=== PATIENT | female | born 1955 | race Hispanic/Latino ===

== ENCOUNTER 2019-03-16 14:47 | Emergency (ER) | payer OTHER ==
[2019-03-16] MEDS ORDERED: predniSONE 20 MG TAB ONE (15:24)
[2019-03-16] MEDS ORDERED: ALBUTEROL 2.5 MG/3 ML NEB SOL ONE ×2 (15:24→16:09)
[2019-03-16 15:30] LABS: Absolute Lymphocytes (CBC) 1.7 K/uL (0.7-4.9); Absolute Monocytes 0.4 K/uL (0.1-1.3); Absolute Neutrophil 2.7 K/uL (1.8-8.0); Basophils % 0.9 % (0-1.3); Eosinophils % 3.3 % (0-4.4); Hematocrit 39.2 % (36.0-45.0); Lymphocytes % 33.8 % (15.3-44.8); MPV 8.6 fL (7.6-11.3); Monocytes % 7.5 % (3.3-12.3); RBC Red Blood Cell Count 4.38 M/uL (3.86-4.86)
[2019-03-16 15:35] LABS: Protime INR 0.86
--- NOTE | 2019-03-16 15:51 | RAD REPORT ---
EXAM DESCRIPTION: RAD - Chest Single View - 03/16/2019 3:43 pm CLINICAL HISTORY: Chest tightness, shortness of breath COMPARISON: January 2017 TECHNIQUE: AP portable chest image was obtained 1521 hours . FINDINGS: Lungs are slightly underinflated accentuating baseline interstitial pattern. No acute lung parenchymal process. No failure or volume overload. Heart and vasculature are normal. No measurable pleural effusion and no pneumothorax. No acute bony abnormality seen. No acute aortic findings suspec mamta. IMPRESSION: No acute cardiopulmonary process. No significant change from comparison.
[2019-03-16 16:34] LABS: ALT/SGPT 45 U/L (12-78); AST/SGOT 31 U/L (15-37); Alkaline Phosphatase 91 U/L (45-117); BUN Blood Urea Nitrogen 22 mg/dL (7-18); Bicarbonate 28 mmol/L (21-32); Bilirubin Direct < 0.1 mg/dL (0-0.2); Bilirubin Total 0.4 mg/dL (0.2-1.0); Glucose Level 113 mg/dL (74-106); Magnesium 2.4 mg/dL (1.8-2.4); NT PRO-BNP 8 pg/mL (<125); Protein, Total 7.3 g/dL (6.4-8.2); Sodium Level 142 mmol/L (136-145); Troponin (Emerg Dept Use Only) < 0.02 ng/mL (0.0-0.045)
--- NOTE | 2019-03-16 16:39 | ER ---
Nurse's Notes [facility] Name: Diane Kitchen Age: 63 yrs Sex: Female : 1955 Arrival Date: 03/16/2019 Time: 14:50 Bed 30 Private MD: Diagnosis: Unspecified asthma with (acute) exacerbation Presentation: 03/16 14:54 Presenting complaint: SOB, chest tightness, and nonproductive cough x 2 days. Denies hb fever. Transition of care: patient was not received from another setting of care. Onset of symptoms was March 15, 2019. 14:54 Method Of Arrival: Ambulatory 14:55 Risk Assessment: Do you want to hurt yourself or someone else? Patient reports no hb desire to harm self or others. Care prior to arrival: None. 14:55 Acuity: JYOTI 3 hb 15:27 Initial Sepsis Screen: Does the patient meet any 2 criteria? No. Patient's initial mg2 sepsis screen is negative. Does the patient have a suspected source of infection? No. Patient's initial sepsis screen is negative. Triage Assessment: 15:28 General: Appears in no apparent distress. comfortable, Behavior is calm, cooperative. mg2 Respiratory: the patient has mild shortness of breath. Historical: - Allergies: 14:56 No Known Allergies; hb - Home Meds: 14:56 aspirin 81 mg Oral TbEC [Active]; Celexa 20 mg Oral tab [Active]; pravastatin 40 mg hb Oral tab [Active]; Singulair 10 mg Oral tab [Active]; - PMHx: 14:56 Diverticulitis; Hypertension; Myocardial infarction; hb - PSHx: 14:56 Tubal ligation; partial hysterectomy; hb - Immunization history:: Adult Immunizations up to date. - Social history:: Smoking status: Patient/guardian denies using tobacco. - Ebola Screening: : No symptoms or risks identified at this time. Screenin:27 Abuse screen: Denies threats or abuse. Denies injuries from another. Nutritional mg2 screening: No deficits noted. Tuberculosis screening: No symptoms or risk factors identified. Fall Risk IV access (20 points). Assessment: 15:24 General: Appears in no apparent distress. comfortable, Behavior is calm, cooperative. mg2 Pain: Complains of pain in chest Pain does not radiate. Pain currently is 2 out of 10 on a pain scale. Quality of pain is described as tightness Pain began gradually, Is intermittent. Neuro: Level of Consciousness is awake, alert, obeys commands, Oriented to person, place, time, situation. Cardiovascular: Capillary refill < 3 seconds Patient's skin is warm and dry. Respiratory: Airway is patent Respiratory effort is even, unlabored, Breath sounds are clear bilaterally. in right upper lobe, left upper lobe, right middle lobe, left lower lobe and right lower lobe. 15:26 GI: No signs and/or symptoms were reported involving the gastrointestinal system. : mg2 No signs and/or symptoms were reported regarding the genitourinary system. EENT: Reports pain in throat. Derm: Skin is intact, is healthy with good turgor, Skin is pink, warm \T\ dry. normal. Musculoskeletal: Circulation, motion, and sensation intact. Capillary refill < 3 seconds. 16:46 Cardiovascular: Rhythm is sinus rhythm. mg2 16:46 Reassessment: Patient appears in no apparent distress at this time. Patient states mg2 feeling better. Patient states symptoms have improved. Vital Signs: 14:55 BP 143 / 77; Pulse 91; Resp 16; Temp 98.; Pulse Ox 96% on R/A; Pain 5/10; hb 16:40 BP 132 / 59; Pulse 78; Resp 18; Pulse Ox 100% on R/A; Pain 0/10; mg2 ED Course: 14:50 Patient arrived in ED. mr 14:56 Triage completed. hb 14:56 Arm band placed on. hb 14:57 Daniel Sommers NP is PHCP. pm1 14:57 Bennett Torres MD is Attending Physician. pm1 15:24 Danny Robert, JEFF is Primary Nurse. mg2 15:27 No provider procedures requiring assistance completed. Inserted saline lock: 20 gauge mg2 in right antecubital area, using aseptic technique. Blood collected. 15:28 Patient has correct armband on for positive identification. Pulse ox on. NIBP on. Door mg2 closed. Warm blanket given. 15:43 XRAY Chest (1 view) In Process Unspecified. EDMS 15:49 EKG done, by solar installation technician. reviewed by Daniel Sommers NP. at1 16:46 IV discontinued, intact, bleeding controlled, No redness/swelling at site. Pressure mg2 dressing applied. Administered Medications: 15:19 Drug: Albuterol 2.5 mg Route: Inhalation; mg2 15:58 Follow up: Response: No adverse reaction; Marked relief of symptoms mg2 15:20 Drug: predniSONE 60 mg Route: PO; mg2 15:59 Follow up: Response: No adverse reaction; Marked relief of symptoms mg2 15:58 Drug: Albuterol 2.5 mg Route: Inhalation; mg2 16:40 Follow up: Response: No adverse reaction; Marked relief of symptoms mg2 Outcome: 16:38 Discharge ordered by MD. pm1 16:47 Discharged to home ambulatory, with family. mg2 16:47 Condition: good 16:47 Discharge instructions given to patient, family, Instructed on discharge instructions, follow up and referral plans. medication usage, Demonstrated understanding of instructions, follow-up care, medications, Prescriptions given X 2. 16:48 Patient left the ED. mg2 Signatures: Dispatcher [employer] OLIVIA NirmalMarguerite mr NielsenMissy, senior counsel EKG Tat1 Daniel Sommers, FCO CARGO SERVICE SUPERVISOR pm1 Jennifer George RN RN Danny Robert RN RN mg2
--- NOTE | 2019-03-16 16:39 | EDPHYS ---
Physician Documentation [facility] Name: Diane Kitchen Age: 63 yrs Sex: Female : 1955 Arrival Date: 03/16/2019 Time: 14:50 Bed 30 Private MD: Bennett Shah HPI: 03/16 15:15 This 63 yrs old Female presents to ER via Ambulatory with complaints of pm1 Breathing Difficulty, Asthma Exacerbation. 15:15 The patient has shortness of breath at rest. Onset: The symptoms/episode began/occurred pm1 2 day(s) ago. Duration: The symptoms are continuous. The patient's shortness of breath is aggravated by coughing, is alleviated by nothing, Patient does not have inhaler or nebulizer for her asthma. Associated signs and symptoms: Pertinent positives: chest pain, non-productive cough, Pertinent negatives: fever, nausea, vomiting. Severity of symptoms: Pain is currently a 0 / 10. The patient has experienced a previous episode, and the symptoms today are exactly the same, Last year. Historical: - Allergies: 14:56 No Known Allergies; hb - Home Meds: 14:56 aspirin 81 mg Oral TbEC [Active]; Celexa 20 mg Oral tab [Active]; pravastatin 40 mg hb Oral tab [Active]; Singulair 10 mg Oral tab [Active]; - PMHx: 14:56 Diverticulitis; Hypertension; Myocardial infarction; hb - PSHx: 14:56 Tubal ligation; partial hysterectomy; hb - Immunization history:: Adult Immunizations up to date. - Social history:: Smoking status: Patient/guardian denies using tobacco. - Ebola Screening: : No symptoms or risks identified at this time. ROS: 15:15 Constitutional: Negative for fever, chills, and weight loss, Eyes: Negative for injury, pm1 pain, redness, and discharge, ENT: Negative for injury, pain, and discharge, Neck: Negative for injury, pain, and swelling. 15:15 Abdomen/GI: Negative for abdominal pain, nausea, vomiting, diarrhea, and constipation, Back: Negative for injury and pain, : Negative for injury, bleeding, discharge, and swelling, MS/Extremity: Negative for injury and deformity, Skin: Negative for injury, rash, and discoloration, Neuro: Negative for headache, weakness, numbness, tingling, and seizure. 15:15 Cardiovascular: Positive for chest pain, with cough, edema, orthopnea, palpitations. 15:15 Respiratory: Positive for cough, with no reported sputum, shortness of breath, wheezing. Exam: 15:15 Constitutional: This is a well developed, well nourished patient who is awake, alert, pm1 and in no acute distress. Head/Face: Normocephalic, atraumatic. Eyes: Pupils equal round and reactive to light, extra-ocular motions intact. Lids and lashes normal. Conjunctiva and sclera are non-icteric and not injected. Cornea within normal limits. Periorbital areas with no swelling, redness, or edema. ENT: Nares patent. No nasal discharge, no septal abnormalities noted. Tympanic membranes are normal and external auditory canals are clear. Oropharynx with no redness, swelling, or masses, exudates, or evidence of obstruction, uvula midline. Mucous membranes moist. Neck: Trachea midline, no thyromegaly or masses palpated, and no cervical lymphadenopathy. Supple, full range of motion without nuchal rigidity, or vertebral point tenderness. No Meningismus. Chest/axilla: Normal chest wall appearance and motion. Nontender with no deformity. No lesions are appreciated. Cardiovascular: Regular rate and rhythm with a normal S1 and S2. No gallops, murmurs, or rubs. Normal PMI, no JVD. No pulse deficits. 15:15 Abdomen/GI: Soft, non-tender, with normal bowel sounds. No distension or tympany. No guarding or rebound. No evidence of tenderness throughout. Back: No spinal tenderness. No costovertebral tenderness. Full range of motion. Skin: Warm, dry with normal turgor. Normal color with no rashes, no lesions, and no evidence of cellulitis. MS/ Extremity: Pulses equal, no cyanosis. Neurovascular intact. Full, normal range of motion. 15:15 Respiratory: the patient does not display signs of respiratory distress, Respirations: normal, Breath sounds: decreased breath sounds, are scattered. 15:15 Neuro: Orientation: is normal, Motor: is normal, moves all fours. 15:50 NSR Normal ECG 90 BPM pm1 Vital Signs: 14:55 BP 143 / 77; Pulse 91; Resp 16; Temp 98.; Pulse Ox 96% on R/A; Pain 5/10; hb 16:40 BP 132 / 59; Pulse 78; Resp 18; Pulse Ox 100% on R/A; Pain 0/10; mg2 MDM: 14:57 Patient medically screened. pm1 16:37 Data reviewed: vital signs. Data interpreted: Pulse oximetry: on room air is 96 %. pm1 Interpretation: normal. Counseling: I had a detailed discussion with the patient and/or guardian regarding: the historical points, exam findings, and any diagnostic results supporting the discharge/admit diagnosis, lab results, radiology results, the need for outpatient follow up, to return to the emergency department if symptoms worsen or persist or if there are any questions or concerns that arise at home. 03/16 15:09 Order name: Basic Metabolic Panel; Complete Time: 16:34 pm03/16 15:09 Order name: CBC with Diff; Complete Time: 15:44 pm03/16 15:09 Order name: LFT's; Complete Time: 16:34 pm03/16 15:09 Order name: Magnesium; Complete Time: 16:34 pm03/16 15:09 Order name: NT PRO-BNP; Complete Time: 16:34 pm03/16 15:09 Order name: PT-INR; Complete Time: 16:17 pm03/16 15:09 Order name: Troponin (emerg Dept Use Only); Complete Time: 16:34 pm03/16 15:09 Order name: XRAY Chest (1 view); Complete Time: 15:55 pm03/16 15:09 Order name: Flu; Complete Time: 16:01 pm03/16 15:09 Order name: Strep; Complete Time: 15:59 pm03/16 16:01 Order name: Throat Culture EDWY 03/16 15:09 Order name: EKG; Complete Time: 15:09 pm03/16 15:09 Order name: Cardiac monitoring; Complete Time: 15:20 pm03/16 15:09 Order name: EKG - Nurse/Tech; Complete Time: 15:39 pm03/16 15:09 Order name: IV Saline Lock; Complete Time: 15:20 pm03/16 15:09 Order name: Labs collected and sent; Complete Time: 15:20 pm03/16 15:09 Order name: O2 Per Protocol; Complete Time: 15:20 pm1 03/16 15:09 Order name: O2 Sat Monitoring; Complete Time: 15:20 pm1 Administered Medications: 15:19 Drug: Albuterol 2.5 mg Route: Inhalation; mg2 15:58 Follow up: Response: No adverse reaction; Marked relief of symptoms mg2 15:20 Drug: predniSONE 60 mg Route: PO; mg2 15:59 Follow up: Response: No adverse reaction; Marked relief of symptoms mg2 15:58 Drug: Albuterol 2.5 mg Route: Inhalation; mg2 16:40 Follow up: Response: No adverse reaction; Marked relief of symptoms mg2 Disposition: 03/16/19 16:38 Discharged to Home. Impression: Unspecified asthma with (acute) exacerbation. - Condition is Stable. - Discharge Instructions: Asthma, Adult, How to Use an Inhaler. - Prescriptions for Medrol (Rito) 4 mg Oral Tablets, Dose Pack - take 1 tablet by ORAL route as directed - follow package instructions; 1 packet. Albuterol Sulfate 90 mcg/actuation - inhale 1-2 puff by INHALATION route every 4-6 hours; 1 Inhaler. - Medication Reconciliation Form, Thank You Letter, Antibiotic Education, Prescription Opioid Use form. - Follow up: Emergency Department; When: As needed; Reason: Worsening of condition. Follow up: Private Physician; When: 2 - 3 days; Reason: Recheck today's complaints, Continuance of care, Re-evaluation by your physician. - Problem is new. - Symptoms have improved. Signatures: Dispatcher [employer] EDWY Daniel Sommers NP FLOOR TRADER pm1 Jennifer George RN RN Danny Robert RN RN mg2 Corrections: (The following items were deleted from the chart) 16:48 16:38 03/16/2019 16:38 Discharged to Home. Impression: Unspecified asthma with (acute) mg2 exacerbation. Condition is Stable. Forms are Medication Reconciliation Form, Thank You Letter, Antibiotic Education, Prescription Opioid Use. Follow up: Emergency Department; When: As needed; Reason: Worsening of condition. Follow up: Private Physician; When: 2 - 3 days; Reason: Recheck today's complaints, Continuance of care, Re-evaluation by your physician. Problem is new. Symptoms have improved. pm1
[2019-03-16 17:09] VITALS: TEMP 98
[2019-03-16 17:10] VITALS: BP 132/59; O2SAT 100
--- NOTE | 2019-03-17 08:39 | EKG ---
Test Date: 2019-03-16 Test Time: 15:35:19 Direct Support Specialist: RITU MEASUREMENT RESULTS: Intervals: Rate: 90 FL: 124 QRSD: 80 QT: 382 QTc: 467 [place]: P: 52 FL: 124 QRS: 18 T: 48 INTERPRETIVE STATEMENTS: Normal sinus rhythm Normal ECG Compared to ECG 10/05/2017 07:31:23 No significant changes Electronically Signed On 03-17-19 08:36:58 CDT by James Ortiz
== END 2019-03-16 16:48 | disposition home or self-care (01) ==
LOC: ER 14:47
DX: J45.901 Unspecified asthma with (acute) exacerbation (principal)
CPT/HCPCS: 36415; 71045; 80048; 80076; 83735; 83880; 84484; 85025; 85610; 87070; 87081; 87804; 93005; 99285; J7512

== ENCOUNTER 2019-11-20 12:39 | Observation (INO) | payer OTHER ==
[2019-11-20] MEDS ORDERED: ASPIRIN 81 MG CHEWABLE TABLET ONE (13:10)
[2019-11-20 13:23] LABS: Absolute Lymphocytes (CBC) 2.1 K/uL (0.7-4.9); Basophils % 0.9 % (0-1.3); Lymphocytes % 43.3 % (15.3-44.8); MPV 8.1 fL (7.6-11.3); RBC Red Blood Cell Count 4.69 M/uL (3.86-4.86)
[2019-11-20 13:24] LABS: Protime INR 0.91
--- NOTE | 2019-11-20 13:29 | RAD REPORT ---
EXAM DESCRIPTION: Raymundo Single View11/20/2019 1:18 pm CLINICAL HISTORY: Chest pain COMPARISON: February 2019 FINDINGS: The lungs appear clear of acute infiltrate. The heart is normal size IMPRESSION: No acute abnormalities displayed
[2019-11-20 13:41] LABS: ALT/SGPT 43 U/L (12-78); AST/SGOT 21 U/L (15-37); Albumin 3.8 g/dL (3.4-5.0); Alkaline Phosphatase 83 U/L (45-117); BUN Blood Urea Nitrogen 12 mg/dL (7-18); Bicarbonate 28 mmol/L (21-32); Bilirubin Direct < 0.1 mg/dL (0-0.2); Bilirubin Total 0.4 mg/dL (0.2-1.0); Glucose Level 93 mg/dL (74-106); Lipase 240 U/L (73-393); Magnesium 2.3 mg/dL (1.8-2.4); NT PRO-BNP 11 pg/mL (<125); Potassium 3.9 mmol/L (3.5-5.1); Protein, Total 7.1 g/dL (6.4-8.2); Sodium Level 140 mmol/L (136-145); Troponin (Emerg Dept Use Only) < 0.02 ng/mL (0.0-0.045)
--- NOTE | 2019-11-20 13:53 | EDPHYS ---
Physician Documentation [facility] Name: Diane Kitchen Age: 63 yrs Sex: Female : 1955 Arrival Date: 11/20/2019 Time: 12:41 Bed 16 Private MD: Fahad Garcia E ED Physician Bennett Torres HPI: 11/20 13:49 This 63 yrs old Female presents to ER via Ambulatory with complaints of Chest carlos Pain. 13:49 The patient or guardian reports chest pain that is located primarily in the substernal carlos area, anterior chest wall, bilaterally. Onset: 1 day(s) ago. The pain does not radiate. Associated signs and symptoms: The patient has no apparent associated signs or symptoms. The chest pain is described as a heaviness, a pressure. Modifying factors: The symptoms are alleviated by nothing. the symptoms are aggravated by nothing. Severity of pain: At its worst the pain was mild moderate in the emergency department the pain has improved mildly. The patient has not experienced similar symptoms in the past. Historical: - Allergies: 12:46 No Known Allergies; ss - Home Meds: 17:40 aspirin 81 mg Oral TbEC [Active]; Celexa 20 mg Oral tab [Active]; pravastatin 40 mg ae4 Oral tab [Active]; Singulair 10 mg Oral tab [Active]; - PMHx: 12:46 Diverticulitis; Hypertension; Myocardial infarction; ss - PSHx: 12:46 Tubal ligation; partial hysterectomy; ss - Immunization history:: Adult Immunizations up to date. - Social history:: Smoking status: Patient/guardian denies using tobacco, but has a distant history of tobacco abuse. - Ebola Screening: : Patient denies exposure to infectious person Patient denies travel to an Ebola-affected area in the 21 days before illness onset. - Family history:: not pertinent. ROS: 13:49 Constitutional: Negative for fever, chills, and weight loss, Eyes: Negative for injury, carlos pain, redness, and discharge, ENT: Negative for injury, pain, and discharge, Neck: Negative for injury, pain, and swelling, Respiratory: Negative for shortness of breath, cough, wheezing, and pleuritic chest pain, Abdomen/GI: Negative for abdominal pain, nausea, vomiting, diarrhea, and constipation, Back: Negative for injury and pain, : Negative for injury, bleeding, discharge, and swelling, MS/Extremity: Negative for injury and deformity, Skin: Negative for injury, rash, and discoloration, Neuro: Negative for headache, weakness, numbness, tingling, and seizure, Psych: Negative for depression, anxiety, suicide ideation, homicidal ideation, and hallucinations, Allergy/Immunology: Negative for hives, rash, and allergies, Endocrine: Negative for neck swelling, polydipsia, polyuria, polyphagia, and marked weight changes, Hematologic/Lymphatic: Negative for swollen nodes, abnormal bleeding, and unusual bruising. 13:49 Cardiovascular: Positive for chest pain, of the chest. Exam: 13:49 Constitutional: This is a well developed, well nourished patient who is awake, alert, carlos and in no acute distress. Head/Face: Normocephalic, atraumatic. Eyes: Pupils equal round and reactive to light, extra-ocular motions intact. Lids and lashes normal. Conjunctiva and sclera are non-icteric and not injected. Cornea within normal limits. Periorbital areas with no swelling, redness, or edema. ENT: Nares patent. No nasal discharge, no septal abnormalities noted. Tympanic membranes are normal and external auditory canals are clear. Oropharynx with no redness, swelling, or masses, exudates, or evidence of obstruction, uvula midline. Mucous membranes moist. Neck: Trachea midline, no thyromegaly or masses palpated, and no cervical lymphadenopathy. Supple, full range of motion without nuchal rigidity, or vertebral point tenderness. No Meningismus. Chest/axilla: Normal chest wall appearance and motion. Nontender with no deformity. No lesions are appreciated. Cardiovascular: Regular rate and rhythm with a normal S1 and S2. No gallops, murmurs, or rubs. Normal PMI, no JVD. No pulse deficits. Respiratory: Lungs have equal breath sounds bilaterally, clear to auscultation and percussion. No rales, rhonchi or wheezes noted. No increased work of breathing, no retractions or nasal flaring. Abdomen/GI: Soft, non-tender, with normal bowel sounds. No distension or tympany. No guarding or rebound. No evidence of tenderness throughout. Back: No spinal tenderness. No costovertebral tenderness. Full range of motion. Skin: Warm, dry with normal turgor. Normal color with no rashes, no lesions, and no evidence of cellulitis. MS/ Extremity: Pulses equal, no cyanosis. Neurovascular intact. Full, normal range of motion. Neuro: Awake and alert, GCS 15, oriented to person, place, time, and situation. Cranial nerves II-XII grossly intact. Motor strength 5/5 in all extremities. Sensory grossly intact. Cerebellar exam normal. Normal gait. Psych: Awake, alert, with orientation to person, place and time. Behavior, mood, and affect are within normal limits. Vital Signs: 12:46 BP 173 / 89; Pulse 88; Resp 16; Temp 98.1(TE); Pulse Ox 96% on R/A; Weight 63.5 kg; ss Height 4 ft. 11 in. (149.86 cm); Pain 5/10; 13:30 BP 161 / 75; Pulse 67; Resp 16; Pulse Ox 96% on R/A; ae4 14:13 BP 161 / 70; Pulse 69; Resp 16; Pulse Ox 96% on R/A; ae4 15:45 BP 145 / 71; Pulse 54; Resp 15; Pulse Ox 96% on R/A; ae4 16:15 BP 152 / 68; Pulse 51; Resp 15; Pulse Ox 96% on R/A; ae4 16:54 BP 152 / 74; Pulse 54; Resp 15; Pulse Ox 96% on R/A; ae4 12:46 Body Mass Index 28.28 (63.50 kg, 149.86 cm) ss MDM: 12:57 Patient medically screened. [facility] 13:50 Data reviewed: vital signs, nurses notes, lab test result(s), EKG, radiologic studies, carlos plain films. 11/20 12:52 Order name: Basic Metabolic Panel; Complete Time: 13:50 [facility] 11/20 12:52 Order name: CBC with Diff; Complete Time: 13:50 [facility] 11/20 12:52 Order name: LFT's; Complete Time: 13:50 [facility] 11/20 12:52 Order name: Magnesium; Complete Time: 13:50 [facility] 11/20 12:52 Order name: NT PRO-BNP; Complete Time: 13:50 [facility] 11/20 12:52 Order name: PT-INR; Complete Time: 13:50 [facility] 11/20 12:52 Order name: Troponin (emerg Dept Use Only); Complete Time: 13:50 [facility] 11/20 12:52 Order name: Lipase; Complete Time: 13:50 [facility] 11/20 14:11 Order name: CBC with Automated Diff [facility] 11/20 14:11 Order name: CBC with Automated Diff [facility] 11/20 14:11 Order name: Troponin I [facility] 11/20 14:11 Order name: Troponin I [facility] 11/20 14:11 Order name: Troponin I [facility] 11/20 15:28 Order name: Urine Dipstick--Ancillary (enter results) 11/20 12:52 Order name: XRAY Chest (1 view); Complete Time: 13:50 [facility] 11/20 12:52 Order name: EKG; Complete Time: 13:01 [facility] 11/20 12:52 Order name: Cardiac monitoring; Complete Time: 17:12 [facility] 11/20 12:52 Order name: EKG - Nurse/Tech; Complete Time: 13:02 [facility] 11/20 12:52 Order name: IV Saline Lock; Complete Time: 13:14 [facility] 11/20 12:52 Order name: Labs collected and sent; Complete Time: 13:14 [facility] 11/20 12:52 Order name: O2 Per Protocol; Complete Time: 13:14 [facility] 11/20 12:52 Order name: O2 Sat Monitoring; Complete Time: 13:14 [facility] 11/20 12:52 Order name: Urine Dipstick-Ancillary (obtain specimen); Complete Time: 17:40 [facility] 11/20 14:10 Order name: CONS Pharmacy Consult [facility] 11/20 14:11 Order name: Heart Healthy EDAK Administered Medications: 13:10 Drug: Aspirin 162 mg Route: PO; ae4 14:12 Follow up: Response: No adverse reaction ae4 14:08 Drug: Pepcid 20 mg Route: IVP; Site: left antecubital; ae4 17:11 Follow up: Response: No adverse reaction ae4 14:10 Drug: Lovenox 1 mg/kg Route: Sub-Q; Site: right lower abdomen; ae4 17:11 Follow up: Response: No adverse reaction ae4 14:12 Drug: Lopressor (metoprolol TARTRATE) 50 mg Route: PO; ae4 17:11 Follow up: Response: Blood pressure is lowered ae4 Disposition: 11/20/19 13:52 Hospitalization ordered by Magui Yuan for Observation. Preliminary diagnosis are Chest pain, unspecified, Essential (primary) hypertension. - Bed requested for Telemetry/MedSurg (observation). - Status is Observation. ae4 - Condition is Stable. - Problem is new. - Symptoms have improved. UTI on Admission? No Signatures: Dispatcher [employer] EDMS Bennett Torres MD MD cha Smirch, Shelby, RN RN Kathy Fortune Michael Benitez RN RN ae4 Corrections: (The following items were deleted from the chart) 15:13 13:52 Hospitalization Ordered by Magui Yuan MD for Observation. Preliminary eb diagnosis is Chest pain, unspecified; Essential (primary) hypertension. Bed requested for Telemetry/MedSurg (observation). Status is Observation. Condition is Stable. Problem is new. Symptoms have improved. UTI on Admission? No. carlos 16:43 15:13 11/20/2019 13:52 Hospitalization Ordered by Magui Yuan MD for Observation. eb Preliminary diagnosis is Chest pain, unspecified; Essential (primary) hypertension. Bed requested for Telemetry/MedSurg (observation). Status is Observation. Condition is Stable. Problem is new. Symptoms have improved. UTI on Admission? No. eb 18:00 16:43 11/20/2019 13:52 Hospitalization Ordered by Magui Yuan MD for Observation. ae4 Preliminary diagnosis is Chest pain, unspecified; Essential (primary) hypertension. Bed requested for Telemetry/MedSurg (observation). Status is Observation. Condition is Stable. Problem is new. Symptoms have improved. UTI on Admission? No. eb
--- NOTE | 2019-11-20 13:53 | ER ---
Nurse's Notes [facility] Name: Diane Kitchen Age: 63 yrs Sex: Female : 1955 Arrival Date: 11/20/2019 Time: 12:41 Bed 16 Private MD: Fahad Garcia E Diagnosis: Chest pain, unspecified;Essential (primary) hypertension Presentation: 11/20 12:45 Presenting complaint: Patient states: L sided neck and chest pain that began this ss morning. Pt reports that the last time she had an FL this is what she experienced so she is concerned. Transition of care: patient was not received from another setting of care. Onset of symptoms was November 20, 2019. Risk Assessment: Do you want to hurt yourself or someone else? Patient reports no desire to harm self or others. Initial Sepsis Screen: Does the patient meet any 2 criteria? No. Patient's initial sepsis screen is negative. Does the patient have a suspected source of infection? No. Patient's initial sepsis screen is negative. Care prior to arrival: None. 12:45 Acuity: JYOTI 3 ss 12:45 Method Of Arrival: Ambulatory ss Historical: - Allergies: 12:46 No Known Allergies; ss - Home Meds: 17:40 aspirin 81 mg Oral TbEC [Active]; Celexa 20 mg Oral tab [Active]; pravastatin 40 mg ae4 Oral tab [Active]; Singulair 10 mg Oral tab [Active]; - PMHx: 12:46 Diverticulitis; Hypertension; Myocardial infarction; ss - PSHx: 12:46 Tubal ligation; partial hysterectomy; ss - Immunization history:: Adult Immunizations up to date. - Social history:: Smoking status: Patient/guardian denies using tobacco, but has a distant history of tobacco abuse. - Ebola Screening: : Patient denies exposure to infectious person Patient denies travel to an Ebola-affected area in the 21 days before illness onset. - Family history:: not pertinent. Screenin:15 Nutritional screening: No deficits noted. Tuberculosis screening: No symptoms or risk ae4 factors identified. Fall Risk None identified. 16:53 Abuse screen: Denies threats or abuse. ae4 Assessment: 13:00 General: Appears uncomfortable, obese, Behavior is cooperative, anxious, crying. ae4 General: Behavior is Patient states she is afraid.. Pain: Complains of pain in chest and neck Pain radiates to neck Pain began suddenly. Neuro: Level of Consciousness is awake, alert, obeys commands, Oriented to person, place, time, situation. Cardiovascular: Heart tones S1 S2 present Patient's skin is warm and dry. Rhythm is regular. Respiratory: Airway is patent Respiratory effort is even, unlabored, Respiratory pattern is regular, symmetrical, Breath sounds are clear bilaterally. GI: No signs and/or symptoms were reported involving the gastrointestinal system. Abdomen is round obese, Bowel sounds present X 4 quads. : No signs and/or symptoms were reported regarding the genitourinary system. EENT: No signs and/or symptoms were reported regarding the EENT system. Derm: Skin is dry, Skin is normal, Skin temperature is warm. Musculoskeletal: No signs and/or symptoms reported regarding the musculoskeletal system. 13:30 Reassessment: Patient appears in no apparent distress at this time. Patient and/or ae4 family updated on plan of care and expected duration. Pain level reassessed. Patient states feeling better. 14:00 Reassessment: Patient and/or family updated on plan of care and expected duration. Pain ae4 level reassessed. 15:00 Reassessment:. Reassessment: Patient is reporting sudden chest pain, repeat EKG done ae4 and shown to MD, no new orders received. 17:36 Reassessment: Report called to JEFF Blackburn, receiving nurse via telephone. ae4 Vital Signs: 12:46 BP 173 / 89; Pulse 88; Resp 16; Temp 98.1(TE); Pulse Ox 96% on R/A; Weight 63.5 kg; ss Height 4 ft. 11 in. (149.86 cm); Pain 5/10; 13:30 BP 161 / 75; Pulse 67; Resp 16; Pulse Ox 96% on R/A; ae4 14:13 BP 161 / 70; Pulse 69; Resp 16; Pulse Ox 96% on R/A; ae4 15:45 BP 145 / 71; Pulse 54; Resp 15; Pulse Ox 96% on R/A; ae4 16:15 BP 152 / 68; Pulse 51; Resp 15; Pulse Ox 96% on R/A; ae4 16:54 BP 152 / 74; Pulse 54; Resp 15; Pulse Ox 96% on R/A; ae4 12:46 Body Mass Index 28.28 (63.50 kg, 149.86 cm) ED Course: 12:41 Patient arrived in ED. as 12:41 Fahad Garcia MD is Private Physician. as 12:46 Triage completed. ss 12:46 Arm band placed on right wrist. 12:51 Bennett Torres MD is Attending Physician. carlos 13:00 Placed in gown. Bed in low position. Call light in reach. Side rails up X 1. Cardiac ae4 monitor on. Pulse ox on. NIBP on. Warm blanket given. 13:01 Michael Benitez, RN is Primary Nurse. ae4 13:19 XRAY Chest (1 view) In Process Unspecified. EDMS 13:51 Magui Yuan MD is Hospitalizing Provider. carlos 16:49 No provider procedures requiring assistance completed. Inserted saline lock: 20 gauge ae4 in right antecubital area, using aseptic technique. Blood collected. Patient maintains SpO2 saturation greater than 95% on room air. 17:59 Patient admitted, IV remains in place. ae4 Administered Medications: 13:10 Drug: Aspirin 162 mg Route: PO; ae4 14:12 Follow up: Response: No adverse reaction ae4 14:08 Drug: Pepcid 20 mg Route: IVP; Site: left antecubital; ae4 17:11 Follow up: Response: No adverse reaction ae4 14:10 Drug: Lovenox 1 mg/kg Route: Sub-Q; Site: right lower abdomen; ae4 17:11 Follow up: Response: No adverse reaction ae4 14:12 Drug: Lopressor (metoprolol TARTRATE) 50 mg Route: PO; ae4 17:11 Follow up: Response: Blood pressure is lowered ae4 Outcome: 13:52 Decision to Hospitalize by Provider. carlos 17:59 Admitted to Med/surg accompanied by tech, family with patient, via wheelchair, room ae4 209, with chart, Report called to JEFF BLACKBURN 17:59 Condition: stable 17:59 Instructed on the need for admit, Demonstrated understanding of instructions. 18:00 Patient left the ED. ae4 Signatures: Dispatcher [employer] EDTN Bennett Torres MD MD cha Martinez, Amelia as Smirch, Shelby, RN RN Michael Benitez, RN RN ae4 Corrections: (The following items were deleted from the chart) 17:37 15:00 Pain: Complains of pain in chest ae4 ae4
[2019-11-20] MEDS ORDERED: FAMOTIDINE 20 MG/2 ML VIAL IV ONE (13:59)
[2019-11-20] MEDS ORDERED: METOPROLOL TAR 50 MG TAB ONE (13:59)
[2019-11-20] MEDS ORDERED: ENOXAPARIN 60 MG/0.6 ML SQ ONE (14:00)
[2019-11-20] MEDS ORDERED: ONDANSETRON 4 MG/2 ML VIAL IV PRN ×2 (14:03→14:06)
[2019-11-20] MEDS ORDERED: MORPHINE 2 MG/ML SYR IV PRN ×2 (14:03→14:06)
[2019-11-20] MEDS ORDERED: ALBUTEROL 2.5 MG/3 ML NEB SOL NEB PRN (14:03)
[2019-11-20] MEDS ORDERED: ACETAMINOPHEN 500 MG TAB PO PRN (14:03)
[2019-11-20] MEDS ORDERED: HYDRALAZINE HCL 20 MG/ML VIAL IV PRN (14:06)
[2019-11-20 16:12] LABS: Urine Blood NEGATIVE (NEG); Urine Glucose NEGATIVE (NEG); Urine Protein NEGATIVE (NEG)
[2019-11-20] MEDS ORDERED: HEPARIN 5000 UNIT/ML 1 ML VIAL SQ SCH (17:00)
[2019-11-20 18:10] VITALS: BMI 28.3
[2019-11-20] MEDS: FAMOTIDINE 20 MG TAB PO SCH (20:22)
[2019-11-20] MEDS ORDERED: ALPRAZOLAM 0.25 MG TABLET PO PRN (20:45)
--- NOTE | 2019-11-21 02:55 | HP ---
Date of Admission: 11/20/2019 Presenting Complaint: Throat pain. History Of Present Illness: Ms. Diane Kitchen is a 63-year-old female with past medical hi story of anxiety disorder, GERD, diet control hypertension, who presented because of throat pain, whi ch seems to be radiating to the mid substernal region. The patient's onset of symptoms was yesterday . She describes the pain as more of pressure-like. She states the pain is similar to previous episo de of GA in 2013. She states she had a cardiac cath then and was told she has blockage in her small vessel that was too small to be stented. She has subsequently been discharged from Cardiology, Dr. Almas pickering[facility] clinic since over the last 2 years. She admits to a strong family history of coronary arter y disease in her sisters and family. She has a history of remote short-term tobacco use in the past, but none over the last 10 years. She admit to taking medicine for her elevated cholesterol, which w as reportedly normal. Her pain has significantly improved prior to arrival in the ED. She denies an y cough, chest pain, shortness of breath. She also denies any dysphagia or odynophagia. In the ED, initial EKG as well as cardiac enzymes were negative. Review of patient records shows that patient h as a relatively normal coronaries on cardiac cath in 2012 with finding of less than 50% blockage in t he left circumflex that was not stented. Past Medical History: Significant for hypertension, though patient denies hypertension history, hist ory of anxiety and depression, history of hyperlipidemia, history of asthma. Past Surgical History: Partial hysterectomy as well as tubal ligation. Allergies: NO KNOWN DRUG ALLERGIES. Home Medications: Include aspirin, Celexa 20, Singulair, and Pravachol. Family History: Significant for extensive coronary artery disease including sisters and brothers wit h coronary artery bypass. Social History: Patient is a former smoker, quit over 10 years ago. No history of illicit drug use or alcohol abuse. She resides in the community with the spouse. Review of Systems: All systems reviewed x14 were negative. Physical Examination: Vital Signs: Current vitals; blood pressure of 166/78, pulse of 82, respiratory rate of 18, O2 satur ation 96 on room air. Temperature afebrile. General: Overweight, mid-aged female, calm, lying in bed, not in any distress. HEENT: Head is atraumatic, normocephalic. Pupils equal, reactive to light. Neck: No JVD. No carotid bruit. No reproducible tenderness. Respiratory: Good air entry. No anterior or chest wall tenderness. Cardiovascular: S1, S2. Rate and rhythm regular. Abdomen: Full, soft, nontender. Bowel sounds positive. No epigastric tenderness. : No Vences. Normal external genitalia. Rest deferred. Extremities: No pedal edema. No calf tenderness. Neuro: Patient is alert, oriented. Cranial nerves 2 through 12 grossly intact. EKG showed normal sinus rhythm at 76 beats per minute. No ST-segment changes. WBC is 4.8, hemoglobi n 14. INR 0.9, potassium 3.9, magnesium 2.3. Troponin less than 0.02. ProBNP of 11. Chest x-ray s hows no acute intrathoracic abnormality. No infiltrate. Impression: 1.Atypical chest pain. 2.Anxiety disorder. 3.Hyperlipidemia. Plan: We will admit the patient to observation with serial set of cardiac enzymes. We will do nitro glycerin as tolerated. Given relatively normal stress test and normal coronaries in 2013, low likeli gonzales of acute coronary event busted possible. If recurrence of chest pain overnight or elevated card iac enzymes, we will schedule patient for a repeat stress test versus Cardiology evaluations for card iac cath. We will start patient on trial of Pepcid for now. Continue home medication regimen. Subc utaneous Lovenox for DVT prophylaxis. Advanced Directives: Patient is a full code. EO/MODL Voice ID: [id number]
[2019-11-21 05:58] LABS: Absolute Lymphocytes (CBC) 1.8 K/uL (0.7-4.9); Basophils % 0.9 % (0-1.3); Hematocrit 40.2 % (36.0-45.0); Lymphocytes % 46.5 % (15.3-44.8); MPV 8.5 fL (7.6-11.3); RBC Red Blood Cell Count 4.59 M/uL (3.86-4.86)
[2019-11-21] MEDS ORDERED: NITROGLYCERIN 0.2 MG/HR (5 MG) PATCH TD SCH (09:00)
[2019-11-21] MEDS ORDERED: ENOXAPARIN 40 MG/0.4 ML SQ SCH (09:00)
[2019-11-21] MEDS ORDERED: lisinopriL 5 MG TAB PO SCH (09:00)
[2019-11-21 09:28] LABS: Blood Morphology Comment NOT SEEN (NOT SEEN); Platelet Estimate ADEQ
[2019-11-21] MEDS: FAMOTIDINE 20 MG TAB PO SCH (09:34)
--- NOTE | 2019-11-21 09:40 | P.DS ---
Admission Date: 11/20/19 Discharge Date: 11/21/19 Primary Care Provider: Dr. Garcia; Cardiology-Dr. Ortiz Disposition: ROUTINE DISCHARGE Discharge Condition: GOOD Reason for Admission: Chest pain Consultations: Cardiology-Dr. Justice/Angel Procedures: ECHO: Performed prior to discharge. CXR: COMPARISON: February 2019 FINDINGS: The lungs appear clear of acute infiltrate. The heart is normal size IMPRESSION: No acute abnormalities displayed Medical Problem List: Chest pain Hypertension GERD Hyperlipidemia Depression with anxiety Brief History of Present Illness: 63-year-old female presented to emergency room with chest pain. Patient with history of PA in 2012. She had a heart catheterization at that time. No stent was required. Initial cardiac enzymes unremarkable. Patient admitted for further evaluation Hospital Course: Patient presented with chest pain. Echocardiogram ordered. Cardiology was consulted for further recommendation. Cardiology recommended outpatient workup. Cardiac enzymes unremarkable. Patient without significant chest pain at discharge. At discharge patient will continue with her medications of aspirin 81 mg daily, lisinopril 5 mg daily and pravastatin 40 mg daily. Recommend follow up with cardiology as an outpatient to further evaluate.. Patient with found to have elevated blood pressure likely underlying hypertension. She was started on lisinopril. At discharge she will continue with her medication-lisinopril 5 mg daily. Further adjustment can be done by her PCP. Patient with underlying depression and anxiety. This has remained stable. Patient will continue with her current medication-Celexa 20 mg daily. Patient with GERD. At discharge she will continue with her medication-Protonix 40 mg daily. Patient with hyperlipidemia. At discharge she will continue with pravastatin 40 mg daily. Vital Signs/Physical Exam: Temp Pulse Resp BP Pulse Ox 97.8 F 62 16 140/73 98 11/21/19 04:00 11/21/19 04:00 11/21/19 04:00 11/21/19 04:00 11/21/19 04:00 General: Alert, In no apparent distress, Oriented x3, Cooperative HEENT: Atraumatic Neck: Supple Respiratory: Clear to auscultation bilaterally, Normal air movement Cardiovascular: Normal pulses, Regular rate/rhythm Gastrointestinal: Normal bowel sounds, Soft and benign, Non-distended, No tenderness, No masses, No rebound, No guarding Musculoskeletal: No erythema, No tenderness, No warmth Integumentary: No tenderness/swelling, No erythema, No warmth, No cyanosis Neurological: Normal speech, Normal strength at 5/5 x4 extr, Normal tone, Normal affect Laboratory Data at Discharge: WBC 3.9 K/uL (4.3-10.9) L D 11/21/19 05:28 Hgb 14.0 g/dL (12.0-15.0) 11/21/19 05:28 Hct 40.2 % (36.0-45.0) 11/21/19 05:28 Plt Count 248 K/uL (152-406) 11/21/19 05:28 PT 10.8 SECONDS (9.5-12.5) 11/20/19 13:14 INR 0.91 11/20/19 13:14 Sodium 140 mmol/L (136-145) 11/20/19 13:14 Potassium 3.9 mmol/L (3.5-5.1) 11/20/19 13:14 BUN 12 mg/dL (7-18) 11/20/19 13:14 Creatinine 0.77 mg/dL (0.55-1.3) 11/20/19 13:14 Glucose 93 mg/dL (74-106) 11/20/19 13:14 Magnesium 2.3 mg/dL (1.8-2.4) 11/20/19 13:14 Total Bilirubin 0.4 mg/dL (0.2-1.0) 11/20/19 13:14 AST 21 U/L (15-37) 11/20/19 13:14 ALT 43 U/L (12-78) 11/20/19 13:14 Alkaline Phosphatase 83 U/L (45-117) 11/20/19 13:14 Troponin I < 0.02 ng/mL (0.0-0.045) 11/20/19 22:45 Lipase 240 U/L (73-393) 11/20/19 13:14 Home Medications: Aspirin [Aspirin EC 81 MG] 1 tab PO BEDTIME 02/18/17 Citalopram [Celexa*] 20 mg PO BEDTIME 02/18/17 Pravastatin Sodium 1 tab PO BEDTIME 02/18/17 lisinopriL [Prinivil*] 5 mg PO DAILY #30 tab 11/21/19 New Medications: lisinopriL [Prinivil*] 5 mg PO DAILY #30 tab Patient Discharge Instructions: 1. Recommend follow up with her PCP in 1 week to follow up this hospitalization. 2. Patient presented with chest pain. Echocardiogram ordered. Cardiology was consulted for further recommendation. Cardiology recommended outpatient workup. Cardiac enzymes unremarkable. Patient without significant chest pain at discharge. At discharge patient will continue with her medications of aspirin 81 mg daily, lisinopril 5 mg daily and pravastatin 40 mg daily. Recommend follow up with cardiology as an outpatient to further evaluate.. 3. Patient with found to have elevated blood pressure likely underlying hypertension. She was started on lisinopril. At discharge she will continue with her medication-lisinopril 5 mg daily. Further adjustment can be done by her PCP. 4. Patient with underlying depression and anxiety. This has remained stable. Patient will continue with her current medication-Celexa 20 mg daily. 5. Patient with GERD. At discharge she will continue with her medication-Protonix 40 mg daily. 6. Patient with hyperlipidemia. At discharge she will continue with pravastatin 40 mg daily. Diet: AHA Activity: Ad zeus Time spent managing pt's care (in minutes): 55
--- NOTE | 2019-11-21 10:18 | EKG ---
Test Date: 2019-11-20 Test Time: 15:38:45 Chief Nurse Anesthetist: PAYAM MEASUREMENT RESULTS: Intervals: Rate: 54 IN: 132 QRSD: 82 QT: 460 QTc: 436 [place]: P: 42 IN: 132 QRS: 23 T: 43 INTERPRETIVE STATEMENTS: Sinus bradycardia Otherwise normal ECG Compared to ECG 03/16/2019 15:35:19 Sinus rhythm no longer present Electronically Signed On 11-21-19 10:18:00 SCHEDULE SUPERVISOR by Rc Justice
--- NOTE | 2019-11-21 10:19 | EKG ---
Test Date: 2019-11-20 Test Time: 12:54:30 Assistant County Engineer: AKI MEASUREMENT RESULTS: Intervals: Rate: 76 OR: 128 QRSD: 80 QT: 392 QTc: 441 [place]: P: 49 OR: 128 QRS: 6 T: 44 INTERPRETIVE STATEMENTS: Normal sinus rhythm Cannot rule out Anterior infarct, age undetermined Abnormal ECG Compared to ECG 03/16/2019 15:35:19 Myocardial infarct finding now present Electronically Signed On 11-21-19 10:18:28 CHARRER by Rc Justice
[2019-11-21 10:38] VITALS: O2SAT 93
--- NOTE | 2019-11-21 12:06 | ECHO ---
HEIGHT: 4 ft 11 in WEIGHT: 139 lb 15.897 oz DATE OF STUDY: 11/21/[address]: Narciso Nilesen DO 2-DIMENSIONAL: YES M.MODE: YES DOPPLER: YES COLOR FLOW: YES TDS: NO PORTABLE: NO DEFINITY: NO BUBBLE STUDY: NO DIAGNOSIS: CHEST PAIN CARDIAC HISTORY: CATHERIZATION: NO SURGERY: NO PROSTHETIC VALVE: NO PACEMAKER: NO MEASUREMENTS (cm) DIASTOLIC (NORMALS) SYSTOLIC (NORMALS) IVSd 1.0 (0.6-1.2) LA Diam 3.0 (1.9-4.0) LVEF 65% LVIDd 4.1 (3.5-5.7) LVIDs 2.6 (2.0-3.5) %FS 35% LVPWd 1.2 (0.6-1.2) Ao Diam 2.5 (2.0-3.7) 2 DIMENSIONAL ASSESSMENT: RIGHT ATRIUM: NORMAL LEFT ATRIUM: NORMAL RIGHT VENTRICLE: NORMAL LEFT VENTRICLE: NORMAL TRICUSPID VALVE: NORMAL MITRAL VALVE: NORMAL PULMONIC VALVE: NORMAL AORTIC VALVE: NORMAL PERICARDIAL EFFUSION: NONE AORTIC ROOT: NORMAL LEFT VENTRICULAR WALL MOTION: NORMAL DOPPLER/COLOR FLOW: TRACE MITRAL REGURGITATION. OTHERWISE NORMAL. COMMENTS: NORMAL 2D ECHOCARDIOGRAM. TRACE MITRAL REGURGITATION. TECHNOLOGIST: Sylvia COBIAN
[2019-11-21 12:58] VITALS: BP 139/66; TEMP 97.3
--- NOTE | 2019-11-21 14:32 | CON ---
History Of Present Illness: Ms. Kitchen had chest pain, very atypical, pleuritic in nature, base of th e left neck, right shoulder blade, left axillary region. There was nothing in the symptoms to sugges t there was a real abnormality. Several years ago, a cardiac cath revealed mild CAD, a 50% lesion in the distal part of the circ. Other arteries were normal. Left ventricular ejection fraction was no rmal. The patient has never had an intracoronary stent or myocardial infarction or bypass surgery. Medications: She takes pravastatin, citalopram, and aspirin. Allergies: DENIES DRUG ALLERGIES. Social History: Uses no tobacco. No illegal drugs, rare alcohol. Physical Examination: Vital Signs: 4 feet 11 inches, 139 pounds. General: Alert, oriented, pleasant, not in distress. Lungs: Clear. Cardiac: Normal. Imaging Studies: EKG shows poor R-wave progression, questionable anterior infarct, although it is no t a real difference from her old EKGs. I believe the patient is not having an acute coronary syndrom e. She could be discharged and have an outpatient stress test. I have encouraged her to call my off ice and schedule outpatient nuclear stress test. ROCKY/EVANGELINA Voice ID: [id number] Report ID: [id number]
[2019-11-21] MEDS ORDERED: ASPIRIN EC 81 MG TAB PO SCH (21:00)
[2019-11-21] MEDS ORDERED: ATORVASTATIN 10 MG TAB PO SCH (21:00)
[2019-11-21] MEDS ORDERED: CITALOPRAM 10 MG TABLET PO SCH (21:00)
== END 2019-11-21 12:10 | disposition home or self-care (01) ==
LOC: ER 12:39 → ERHOLD 15:32 → 2ND 17:37
PROVIDERS: ADMIT Internal Medicine; ATTEND Internal Medicine
DX: R07.9 Chest pain, unspecified (principal); I10 Essential (primary) hypertension; K21.9 Gastro-esophageal reflux disease without esophagitis; E78.5 Hyperlipidemia, unspecified; F41.8 Other specified anxiety disorders
CPT/HCPCS: 93005 ×2; 93306; 85025 ×2; 80048; 36415; 83735; 85610; 80076; 81003; 84484 ×3; 83690; 83880; 71045; 96372; 96374; 99285; J1650 ×2; G0378 ×3

== ENCOUNTER 2019-12-16 08:37 | Emergency (ER) | payer OTHER ==
[2019-12-16] MEDS ORDERED: METHYLPREDNISOLONE 125 MG INJ ONE (09:19)
[2019-12-16] MEDS ORDERED: ALBUTEROL 2.5 MG/3 ML NEB SOL ONE (09:20)
[2019-12-16] MEDS ORDERED: KETOROLAC 30 MG/ML INJ ONE (09:20)
[2019-12-16 09:21] LABS: Basophils % 0.6 % (0-1.3); Hematocrit 39.1 % (36.0-45.0); Lymphocytes % 16.8 % (15.3-44.8); RBC Red Blood Cell Count 4.52 M/uL (3.86-4.86)
[2019-12-16 09:22] LABS: Absolute Lymphocytes (CBC) 1.4 K/uL (0.7-4.9)
[2019-12-16 09:31] LABS: Protime INR 0.94
--- NOTE | 2019-12-16 10:50 | RAD REPORT ---
EXAM DESCRIPTION: RAD - Chest Single View - 12/16/2019 10:39 am CLINICAL HISTORY: CHEST PAIN Chest pain. COMPARISON: Chest Single View dated 11/20/2019; Chest Single View dated 03/16/2019; Chest Single View dated 02/18/2017; Chest Single View dated 02/17/2017 FINDINGS: Portable technique limits examination quality. The lungs are grossly clear. The heart is normal in size. No displaced fractures. IMPRESSION: No acute intrathoracic process suspected.
[2019-12-16 12:09] LABS: Urine Blood NEGATIVE (NEG); Urine Glucose NEGATIVE (NEG); Urine Protein NEGATIVE (NEG)
[2019-12-16 12:32] LABS: ALT/SGPT 53 U/L (12-78); AST/SGOT 33 U/L (15-37); Albumin 4.1 g/dL (3.4-5.0); Alkaline Phosphatase 107 U/L (45-117); BUN Blood Urea Nitrogen 9 mg/dL (7-18); Bicarbonate 25 mmol/L (21-32); Bilirubin Direct 0.1 mg/dL (0-0.2); Bilirubin Total 0.6 mg/dL (0.2-1.0); Glucose Level 116 mg/dL (74-106); Magnesium 2.4 mg/dL (1.8-2.4); NT PRO-BNP 40 pg/mL (<125); Protein, Total 7.7 g/dL (6.4-8.2); Sodium Level 142 mmol/L (136-145); Troponin (Emerg Dept Use Only) < 0.02 ng/mL (0.0-0.045)
--- NOTE | 2019-12-16 14:02 | EDPHYS ---
Physician Documentation [facility] Name: Diane Kitchen Age: 64 yrs Sex: Female : 1955 Arrival Date: 12/16/2019 Time: 08:39 Bed 6 Private MD: Fahad Garcia E ED Physician Mariusz Agee HPI: 12/16 09:06 This 64 yrs old Female presents to ER via Ambulatory with complaints of Chest kdr Pain, Back Pain, Headache. 09:06 The patient or guardian reports chest pain that is located primarily in the anterior kdr chest wall, bilaterally. Onset: gradually, this morning. The pain radiates to Historical: - Allergies: 08:52 No Known Allergies; hb - Home Meds: 08:52 aspirin 81 mg Oral TbEC [Active]; Celexa 20 mg Oral tab [Active]; pravastatin 40 mg hb Oral tab [Active]; Singulair 10 mg Oral tab [Active]; - PMHx: 08:52 Diverticulitis; Hypertension; Myocardial infarction; hb - PSHx: 08:52 Tubal ligation; partial hysterectomy; hb - Immunization history:: Adult Immunizations up to date. - Social history:: Smoking status: Patient/guardian denies using tobacco, the patient reports quitting approximately 7 years ago. - Ebola Screening: : No symptoms or risks identified at this time. ROS: 10:14 Constitutional: Negative for fever, chills, and weight loss, Eyes: Negative for injury, kdr pain, redness, and discharge, ENT: Negative for injury, pain, and discharge, Neck: Negative for injury, pain, and swelling, Abdomen/GI: Negative for abdominal pain, nausea, vomiting, diarrhea, and constipation, : Negative for injury, bleeding, discharge, and swelling, MS/Extremity: Negative for injury and deformity, Skin: Negative for injury, rash, and discoloration, Neuro: Negative for headache, weakness, numbness, tingling, and seizure activity. Psych: Negative for depression, anxiety, suicide ideation, homicidal ideation, and hallucinations, Allergy/Immunology: Negative for hives, rash, and allergies, Endocrine: Negative for neck swelling, polydipsia, polyuria, polyphagia, and marked weight changes, Hematologic/Lymphatic: Negative for swollen nodes, abnormal bleeding, and unusual bruising. 10:14 Cardiovascular: Positive for chest pain, with cough, with movement, Negative for edema, palpitations, paroxysmal nocturnal dyspnea. 10:14 Respiratory: Positive for shortness of breath, on exertion. wheezing, expiratory. Exam: 10:14 Constitutional: This is a well developed, well nourished patient who is awake, alert, kdr and in no acute distress. Head/Face: Normocephalic, atraumatic. Eyes: Pupils equal round and reactive to light, extra-ocular motions intact. Lids and lashes normal. Conjunctiva and sclera are non-icteric and not injected. Cornea within normal limits. Periorbital areas with no swelling, redness, or edema. Neck: Trachea midline, no thyromegaly or masses palpated, and no cervical lymphadenopathy. Supple, full range of motion without nuchal rigidity, or vertebral point tenderness. No Meningismus. Chest/axilla: Normal chest wall appearance and motion. Nontender with no deformity. No lesions are appreciated. Cardiovascular: Regular rate and rhythm with a normal S1 and S2. No gallops, murmurs, or rubs. Normal PMI, no JVD. No pulse deficits. Abdomen/GI: Soft, non-tender, with normal bowel sounds. No distension or tympany. No guarding or rebound. No evidence of tenderness throughout. Back: No spinal tenderness. No costovertebral tenderness. Full range of motion. Skin: Warm, dry with normal turgor. Normal color with no rashes, no lesions, and no evidence of cellulitis. MS/ Extremity: Pulses equal, no cyanosis. Neurovascular intact. Full, normal range of motion. Neuro: Awake and alert, GCS 15, oriented to person, place, time, and situation. Cranial nerves II-XII grossly intact. Motor strength 5/5 in all extremities. Sensory grossly intact. Cerebellar exam normal. Normal gait. Psych: Awake, alert, with orientation to person, place and time. Behavior, mood, and affect are within normal limits. 10:14 Respiratory: the patient does not display signs of respiratory distress, Respirations: normal, Breath sounds: wheezing: expiratory that is mild, is heard diffusely. 14:11 ECG was reviewed by the Attending Physician. kdr Vital Signs: 08:49 BP 172 / 82; Pulse 78; Resp 17; Temp 98.3; Pulse Ox 97% on R/A; Weight 65.32 kg; Height hb 4 ft. 11 in. (149.86 cm); Pain 7/10; 09:23 BP 165 / 69; Pulse 63; Resp 9; Pulse Ox 100% ; bp 10:47 BP 134 / 69; Pulse 73; Resp 12; Pulse Ox 95% ; bp 11:49 BP 138 / 66; Pulse 74; Resp 11; Pulse Ox 94% ; bp 13:47 BP 132 / 79; Pulse 94; Resp 11; Pulse Ox 94% ; bp 08:49 Body Mass Index 29.08 (65.32 kg, 149.86 cm) hb MDM: 10:14 HEART Score: History: Slightly Suspicious (0), ECG: Non specific repolarization kdr disturbance / LBTB / PM (1), Age: > or = 65 years (2), Risk Factors: 1 or 2 risk factors (1), Troponin: Total Score = 4. Data reviewed: vital signs, nurses notes. 14:01 Patient medically screened. [facility] 12/16 09:04 Order name: Basic Metabolic Panel; Complete Time: 13:07 [facility] 12/16 09:04 Order name: CBC with Diff; Complete Time: 10:13 [facility] 12/16 09:04 Order name: LFT's; Complete Time: 13:07 [facility] 12/16 09:04 Order name: Magnesium; Complete Time: 13:07 [facility] 12/16 09:04 Order name: NT PRO-BNP; Complete Time: 13:07 [facility] 12/16 09:04 Order name: PT-INR; Complete Time: 10:13 [facility] 12/16 09:04 Order name: Troponin (emerg Dept Use Only); Complete Time: 13:07 [facility] 12/16 09:04 Order name: XRAY Chest (1 view); Complete Time: 11:01 [facility] 12/16 12:03 Order name: Urine Dipstick--Ancillary (enter results); Complete Time: 13:07 3 12/16 13:07 Order name: Troponin (emerg Dept Use Only); Complete Time: 14:00 [facility] 12/16 09:04 Order name: EKG; Complete Time: 09:05 [facility] 12/16 09:04 Order name: Cardiac monitoring; Complete Time: 09:03 [facility] 12/16 09:04 Order name: EKG - Nurse/Tech; Complete Time: 09:20 [facility] 12/16 09:04 Order name: IV Saline Lock; Complete Time: 09:20 kdr 12/16 09:04 Order name: Labs collected and sent; Complete Time: : kdr 12/16 09:04 Order name: O2 Per Protocol; Complete Time: 09: kdr 12/16 09:04 Order name: O2 Sat Monitoring; Complete Time: 09: kdr 12/16 09:46 Order name: Labs - recollect needed: recollect chemistry in dark green.; Complete Time: eb 10:29 EC:11 Rate is 68 beats/min. Rhythm is regular, Normal Sinus Rhythm with No ectopy. QRS [place] kdr is Normal. Clinical impression: Normal ECG. Administered Medications: 09:15 Drug: Albuterol 2.5 mg Route: Inhalation; bp 09:15 Drug: SOLU-Medrol 125 mg Route: IVP; Site: right forearm; bp 12:42 Follow up: Response: No adverse reaction bp 09:15 Drug: TORadol - Ketorolac 15 mg Route: IVP; Site: right forearm; bp 12:42 Follow up: Response: Pain is decreased bp 14:10 Drug: traMADol 50 mg Route: PO; bp 14:17 Follow up: Response: Pain is decreased bp Disposition: 12/16/19 14:01 Discharged to Home. Impression: Other chest pain. - Condition is Stable. - Discharge Instructions: Nonspecific Chest Pain, Chest Wall Pain. - Medication Reconciliation Form, Thank You Letter, Work release form form. - Follow up: Fahad Garcia MD; When: 2 - 3 days; Reason: If symptoms return, Further diagnostic work-up, Recheck today's complaints, Continuance of care, Re-evaluation by your physician. - Problem is an acute exacerbation. - Symptoms have improved. Signatures: Dispatcher [employer] EDVA Juan R Santana jb1 Mariusz Agee MD MD kdr Jennifer George RN RN Josh Stafford RN RN Kathy Blackmon Corrections: (The following items were deleted from the chart) 14:35 14:01 12/16/2019 14:01 Discharged to Home. Impression: Other chest pain. Condition is jb1 Stable. Forms are Medication Reconciliation Form, Thank You Letter, Antibiotic Education, Prescription Opioid Use. Follow up: Fahad Garcia; When: 2 - 3 days; Reason: If symptoms return, Further diagnostic work-up, Recheck today's complaints, Continuance of care, Re-evaluation by your physician. Problem is an acute exacerbation. Symptoms have improved. kdr
--- NOTE | 2019-12-16 14:02 | ER ---
Nurse's Notes [facility] Name: Diane Kitchen Age: 64 yrs Sex: Female : 1955 Arrival Date: 12/16/2019 Time: 08:39 Bed 6 Private MD: Fahad Garcia E Diagnosis: Other chest pain Presentation: 12/16 08:50 Presenting complaint: Nonproductive cough x 1 week, anterior chest pain that radiates hb to back and SOB upon waking today. Transition of care: patient was not received from another setting of care. Onset of symptoms was December 10, 2019. Risk Assessment: Do you want to hurt yourself or someone else? Patient reports no desire to harm self or others. Initial Sepsis Screen: Does the patient meet any 2 criteria? No. Patient's initial sepsis screen is negative. Does the patient have a suspected source of infection? No. Patient's initial sepsis screen is negative. Care prior to arrival: None. 08:50 Method Of Arrival: Ambulatory hb 08:50 Acuity: JYOTI 3 hb Triage Assessment: 08:50 General: Appears in no apparent distress. uncomfortable, Behavior is cooperative, bp appropriate for age, anxious. Pain: Complains of pain in chest. EENT: No deficits noted. Neuro: No deficits noted. Cardiovascular: Rhythm is sinus rhythm. Respiratory: Reports shortness of breath cough that is. GI: No signs and/or symptoms were reported involving the gastrointestinal system. : No signs and/or symptoms were reported regarding the genitourinary system. Derm: No deficits noted. Musculoskeletal: No deficits noted. Historical: - Allergies: 08:52 No Known Allergies; hb - Home Meds: 08:52 aspirin 81 mg Oral TbEC [Active]; Celexa 20 mg Oral tab [Active]; pravastatin 40 mg hb Oral tab [Active]; Singulair 10 mg Oral tab [Active]; - PMHx: 08:52 Diverticulitis; Hypertension; Myocardial infarction; hb - PSHx: 08:52 Tubal ligation; partial hysterectomy; hb - Immunization history:: Adult Immunizations up to date. - Social history:: Smoking status: Patient/guardian denies using tobacco, the patient reports quitting approximately 7 years ago. - Ebola Screening: : No symptoms or risks identified at this time. Screenin:53 Abuse screen: Denies threats or abuse. Denies injuries from another. Nutritional hb screening: No deficits noted. Tuberculosis screening: No symptoms or risk factors identified. Fall Risk None identified. Assessment: 08:59 General: SEE TRIAGE NOTE. Pain: Pain radiates to back Pain began suddenly. bp 10:47 Reassessment: LABS REDRAWN AND SENT. VS STABLE ON MONITOR. bp 11:49 Reassessment: LABS REDRAWN BY PHLEBOTOMY. VS STABLE ON MONITOR, NO ACUTE FINDINGS AT bp THIS TIME. 13:47 Reassessment: REPEAT CARDIAC ENZYMES DRAWN AND SENT, RESULTS PENDING FOR DISPO. PT bp STATES RELIEF OF S/S AT THIS TIME. Vital Signs: 08:49 BP 172 / 82; Pulse 78; Resp 17; Temp 98.3; Pulse Ox 97% on R/A; Weight 65.32 kg; Height hb 4 ft. 11 in. (149.86 cm); Pain 7/10; 09:23 BP 165 / 69; Pulse 63; Resp 9; Pulse Ox 100% ; bp 10:47 BP 134 / 69; Pulse 73; Resp 12; Pulse Ox 95% ; bp 11:49 BP 138 / 66; Pulse 74; Resp 11; Pulse Ox 94% ; bp 13:47 BP 132 / 79; Pulse 94; Resp 11; Pulse Ox 94% ; bp 08:49 Body Mass Index 29.08 (65.32 kg, 149.86 cm) hb ED Course: 08:39 Patient arrived in ED. ag5 08:39 Fahad Garcia MD is Private Physician. ag5 08:48 Josh Rapp, RN is Primary Nurse. bp 08:50 Arm band placed on. hb 08:51 Triage completed. hb 08:52 Mariusz Agee MD is Attending Physician. kdr 09:00 Patient has correct armband on for positive identification. Placed in gown. Bed in low bp position. Call light in reach. Side rails up X2. quality assurance monitor chassis on. Pulse ox on. NIBP on. 09:15 Inserted saline lock: 22 gauge in right forearm, using aseptic technique. Blood bp collected. 09:52 EKG done, by fiscal technician. reviewed by Mariusz Agee MD. tc 10:39 XRAY Chest (1 view) In Process Unspecified. EDMS 12:01 Urine collected: clean catch specimen, clear, jennifer colored. jb1 14:00 Fahad Garcia MD is Referral Physician. kdr Administered Medications: 09:15 Drug: Albuterol 2.5 mg Route: Inhalation; bp 09:15 Drug: SOLU-Medrol 125 mg Route: IVP; Site: right forearm; bp 12:42 Follow up: Response: No adverse reaction bp 09:15 Drug: TORadol - Ketorolac 15 mg Route: IVP; Site: right forearm; bp 12:42 Follow up: Response: Pain is decreased bp 14:10 Drug: traMADol 50 mg Route: PO; bp 14:17 Follow up: Response: Pain is decreased bp Outcome: 14:01 Discharge ordered by . kdr 14:35 Patient left the ED. jb1 Signatures: Dispatcher [employer] EDJuan R Pacheco jb1 Mariusz Agee MD MD kdr Bailey Cortés, retail sales merchandiser development EKG Ttc Jennifer George, RN RN Josh Stafford RN RN Daily Nunez ag5
[2019-12-16] MEDS ORDERED: TRAMADOL HCL 50 MG TAB ONE (14:12)
--- NOTE | 2019-12-16 14:32 | EKG ---
Test Date: 2019-12-16 Test Time: 09:15:29 [employer] Driving: [place]ER[place] MEASUREMENT RESULTS: Intervals: Rate: 68 OR: 124 QRSD: 76 QT: 396 QTc: 421 [place]: P: 59 OR: 124 QRS: 44 T: 63 INTERPRETIVE STATEMENTS: Normal sinus rhythm Normal ECG Compared to ECG 11/20/2019 15:38:45 Sinus bradycardia no longer present Electronically Signed On 12-16-19 14:30:50 DESK ASSISTANT by Rc Justice
[2019-12-16 14:49] VITALS: TEMP 98.3
[2019-12-16 14:52] VITALS: O2SAT 94
[2019-12-16 14:54] VITALS: BP 132/79
== END 2019-12-16 14:35 | disposition home or self-care (01) ==
LOC: ER 08:37
DX: R07.89 Other chest pain (principal)
CPT/HCPCS: 93005; 85025; 80048; 36415; 83735; 85610; 80076; 81003; 84484 ×2; 83880; 71045; 96375; 96374; 99285; J2930

== ENCOUNTER 2020-09-08 15:55 | Observation (INO) | payer OTHER ==
[2020-09-08] MEDS ORDERED: FENTANYL CITR 100 MCG/2 ML ONE ×2 (17:01→20:28)
[2020-09-08 17:18] LABS: Absolute Lymphocytes (CBC) 1.6 K/uL (0.7-4.9); Basophils % 0.7 % (0-1.3); Hematocrit 37.2 % (36.0-45.0); Lymphocytes % 33.5 % (15.3-44.8); MPV 8.4 fL (7.6-11.3); RBC Red Blood Cell Count 4.26 M/uL (3.86-4.86)
[2020-09-08 17:24] LABS: Protime INR 0.81
--- NOTE | 2020-09-08 17:51 | RAD REPORT ---
EXAM DESCRIPTION: RAD - Chest Single View - 09/08/2020 4:51 pm CLINICAL HISTORY: Chest pain;Cough COMPARISON: Portable November 2019 TECHNIQUE: AP portable chest image was obtained 09/08/2020 4:51 pm . FINDINGS: Lung volumes are low. No focal lung parenchymal process. Interstitial pattern matches comp arison. Heart and vasculature are normal. No measurable pleural effusion and no pneumothorax. No acut e bony abnormality seen. No acute aortic findings suspected. IMPRESSION: No acute cardiopulmonary process.
[2020-09-08 18:11] LABS: ALT/SGPT 33 U/L (12-78); Albumin 3.5 g/dL (3.4-5.0); Alkaline Phosphatase 107 U/L (45-117); BUN Blood Urea Nitrogen 14 mg/dL (7-18); Bicarbonate 27 mmol/L (21-32); Bilirubin Direct < 0.1 mg/dL (0-0.2); Bilirubin Total 0.3 mg/dL (0.2-1.0); Glucose Level 108 mg/dL (74-106); NT PRO-BNP 12 pg/mL (<125); Sodium Level 141 mmol/L (136-145); Troponin (Emerg Dept Use Only) < 0.02 ng/mL (0.0-0.045)
[2020-09-08 18:14] LABS: AST/SGOT 23 U/L (15-37); Magnesium 2.4 mg/dL (1.8-2.4); Potassium 3.4 mmol/L (3.5-5.1)
--- NOTE | 2020-09-08 18:44 | RAD REPORT ---
EXAM DESCRIPTION: CT - Chest For Pe Angio - 09/08/2020 6:33 pm CLINICAL HISTORY: Chest pain;SOB COMPARISON: Chest For Pe Angio dated 02/17/2017; Chest Single View dated 09/08/2020 TECHNIQUE: Dynamically enhanced 3 mm thick images of the chest were obtained during administration o f approximately 150mL Isovue 370 IV contrast. Coronal and oblique MIP reconstruction images were gene rated and reviewed. Exam utilizes a protocol to evaluate the pulmonary arterial tree. All CT scans are performed using dose optimization technique as appropriate and may include automated exposure control or mA/KV adjustment according to patient size. FINDINGS: No pulmonary emboli are identified. The aorta as imaged shows no acute or suspicious finding. No pericardial thickening or effusion. No dense mass or consolidation seen. Patient has hazy ground-glass opacities present in the lung fiel ds. These are distributed throughout the lung gómez and minimal in degree. This is not a COVID-19 pn [place] typical pattern. Pattern favors a mild alveolar edema. No pleural effusion or pleural thicken ing. No mediastinal or hilar suspicious masses. No chest wall masses or abnormal axillary lymphadenopathy. IMPRESSION: No pulmonary emboli identified. Mild ground-glass opacification scattered throughout the lung gómez. Pattern favors alveolar edema r ather than COVID-19 pneumonia or other infectious process.
--- NOTE | 2020-09-08 18:57 | EDPHYS ---
Physician Documentation [facility] Name: Diane Kitchen Age: 64 yrs Sex: Female : 1955 Arrival Date: 09/08/2020 Time: 15:56 Bed 14 Private MD: Fahad Garcia E ED Physician Luis Muse HPI: 09/08 16:37 This 64 yrs old Female presents to ER via Ambulatory with complaints of Cough, snw Headache, Shortness Of Breath. 16:37 The patient or guardian reports cough, that is intermittent, difficulty breathing. snw Onset: The symptoms/episode began/occurred gradually, 3 day(s) ago, and became persistent. Severity of symptoms: At their worst the symptoms were moderate. Associated signs and symptoms: Pertinent positives: chest pain, with breathing, diaphoresis. The patient has not experienced similar symptoms in the past. It is unknown whether or not the patient has recently seen a physician. Historical: - Allergies: 16:19 No Known Allergies; iw - Home Meds: 16:19 pravastatin 40 mg Oral tab [Active]; citalopram 20 mg tab 1 tab once daily [Active]; iw 21:22 aspirin 81 mg Oral tab [Active]; ll2 - PMHx: 16:19 Diverticulitis; Hypertension; Myocardial infarction; iw - PSHx: 16:19 Tubal ligation; partial hysterectomy; iw - Immunization history:: Adult Immunizations up to date. - Social history:: Smoking status: . ROS: 16:36 Eyes: Negative for injury, pain, redness, and discharge, ENT: Negative for injury, snw pain, and discharge, Neck: Negative for injury, pain, and swelling. 16:36 Abdomen/GI: Negative for abdominal pain, nausea, vomiting, diarrhea, and constipation, Back: Negative for injury and pain, : Negative for injury, bleeding, discharge, and swelling, MS/Extremity: Negative for injury and deformity, Skin: Negative for injury, rash, and discoloration, Neuro: Negative for headache, weakness, numbness, tingling, and seizure, Psych: Negative for depression, anxiety, suicide ideation, homicidal ideation, and hallucinations. 16:36 Constitutional: Positive for body aches, malaise. 16:36 Cardiovascular: Positive for chest pain, with inspiration. 16:36 Respiratory: Positive for cough, dyspnea on exertion, shortness of breath. Exam: 16:36 Constitutional: This is a well developed, well nourished patient who is awake, alert, snw and in no acute distress. Head/Face: Normocephalic, atraumatic. Eyes: Pupils equal round and reactive to light, extra-ocular motions intact. Lids and lashes normal. Conjunctiva and sclera are non-icteric and not injected. Cornea within normal limits. Periorbital areas with no swelling, redness, or edema. ENT: Nares patent. No nasal discharge, no septal abnormalities noted. Tympanic membranes are normal and external auditory canals are clear. Oropharynx with no redness, swelling, or masses, exudates, or evidence of obstruction, uvula midline. Mucous membranes moist. Neck: Trachea midline, no thyromegaly or masses palpated, and no cervical lymphadenopathy. Supple, full range of motion without nuchal rigidity, or vertebral point tenderness. No Meningismus. Chest/axilla: Normal chest wall appearance and motion. Nontender with no deformity. No lesions are appreciated. Cardiovascular: Regular rate and rhythm with a normal S1 and S2. No gallops, murmurs, or rubs. Normal PMI, no JVD. No pulse deficits. Respiratory: Lungs have equal breath sounds bilaterally, clear to auscultation and percussion. No rales, rhonchi or wheezes noted. No increased work of breathing, no retractions or nasal flaring. Abdomen/GI: Soft, non-tender, with normal bowel sounds. No distension or tympany. No guarding or rebound. No evidence of tenderness throughout. Back: No spinal tenderness. No costovertebral tenderness. Full range of motion. Skin: Warm, dry with normal turgor. Normal color with no rashes, no lesions, and no evidence of cellulitis. MS/ Extremity: Pulses equal, no cyanosis. Neurovascular intact. Full, normal range of motion. Neuro: Awake and alert, GCS 15, oriented to person, place, time, and situation. Cranial nerves II-XII grossly intact. Motor strength 5/5 in all extremities. Sensory grossly intact. Cerebellar exam normal. Normal gait. Psych: Awake, alert, with orientation to person, place and time. Behavior, mood, and affect are within normal limits. Vital Signs: 16:17 BP 139 / 62; Pulse 72; Resp 18 S; Temp 97.7; Pulse Ox 97% on R/A; iw 17:11 BP 145 / 65; Pulse 69; Resp 12; Pulse Ox 95% on R/A; aj1 18:07 BP 156 / 67; Pulse 64; Resp 15; Pulse Ox 97% on R/A; aj1 18:44 BP 157 / 68; Pulse 64; Resp 15; Pulse Ox 98% on R/A; aj1 19:36 BP 184 / 75; Pulse 66; Resp 16; Pulse Ox 99% on R/A; ll2 MDM: 16:02 Patient medically screened. snw 18:57 Data reviewed: vital signs, nurses notes. Data interpreted: Pulse oximetry: on room air snw is 98 %. Interpretation: normal. Counseling: I had a detailed discussion with the patient and/or guardian regarding: the historical points, exam findings, and any diagnostic results supporting the discharge/admit diagnosis, lab results, radiology results, the need for further work-up and treatment in the hospital. Physician consultation: Jaron LINO was called at 18:58, was contacted at 18:58, regarding admission, to the telemetry unit. in the emergency department to see patient at 18:58. 09/08 16:13 Order name: Basic Metabolic Panel; Complete Time: 18:28 snw 09/08 16:13 Order name: CBC with Diff; Complete Time: 17:48 snw 09/08 16:13 Order name: LFT's; Complete Time: 18:28 snw 09/08 16:13 Order name: Magnesium; Complete Time: 18:28 snw 09/08 16:13 Order name: NT PRO-BNP; Complete Time: 18:28 snw 09/08 16:13 Order name: PT-INR; Complete Time: 17:48 snw 09/08 16:13 Order name: Troponin (emerg Dept Use Only); Complete Time: 18:28 snw 09/08 16:13 Order name: XRAY Chest (1 view); Complete Time: 18:02 snw 09/08 17:19 Order name: D-Dimer; Complete Time: 17:48 EDMS 09/08 17:49 Order name: CT Chest For PE Angio; Complete Time: 18:48 snw 09/08 18:45 Order name: SARS-COV-2 RT PCR; Complete Time: 18:48 EDMS 09/08 16:13 Order name: EKG; Complete Time: 16:15 snw 09/08 16:13 Order name: Cardiac monitoring; Complete Time: 17:10 snw 09/08 16:13 Order name: EKG - Nurse/Tech; Complete Time: 17:10 snw 09/08 16:13 Order name: IV Saline Lock; Complete Time: 17:10 snw 09/08 16:13 Order name: Labs collected and sent; Complete Time: 17:10 snw 09/08 16:13 Order name: O2 Per Protocol; Complete Time: 17:10 snw 09/08 16:13 Order name: O2 Sat Monitoring; Complete Time: 17:10 snw EC:45 Rate is 72 beats/min. Rhythm is regular. QRS [place] is Normal. MO interval is normal. QRS snw interval is normal. QT interval is normal. No Q waves. T waves are Inverted. Clinical impression: NSR w/ Non-specific ST/T Changes. Administered Medications: 17:09 Drug: fentaNYL (PF) 25 mcg Route: IVP; Site: right antecubital; aj1 19:02 Follow up: Response: No adverse reaction; RASS: Alert and Calm (0) aj1 20:19 Drug: fentaNYL (PF) 25 mcg Route: IVP; Site: right antecubital; ll2 20:52 Follow up: Response: No adverse reaction; RASS: Alert and Calm (0) ll2 Disposition: 09/09 07:15 Co-signature as Attending Physician, Luis Muse MD. rn Disposition: 09/08/20 18:57 Hospitalization ordered by Roland Wallace for Observation. Preliminary diagnosis are Chest pain on breathing, Pulmonary edema. - Bed requested for Telemetry/MedSurg (observation). - Status is Observation. ll2 - Condition is Stable. - Problem is new. - Symptoms are unchanged. Signatures: Dispatcher [employer] EDMS Kenzie Lake RN RN aj1 Jeannie Packer, CARE TEAM ASSISTANT-C CARE TEAM ASSISTANT-Csnw Whitney Almeida RN RN iw Nieto, Roman, MD MD rn Attema, Lee, CARE TEAM ASSISTANT-C CARE TEAM ASSISTANT-Kajal Hood RN RN L[place], Nicole, RN RN ll2 Corrections: (The following items were deleted from the chart) 09/08 17:18 16:19 D-DIMER+COAG.LAB.BRZ ordered. EDMS EDMS 17:39 16:14 CORONAVIRUS+MR.LAB.BRZ ordered. EDCO EDMS 18:57 18:57 Hospitalization Ordered by Roland Wallace MD for Observation. Preliminary snw diagnosis is Chest pain on breathing. Bed requested for Telemetry/MedSurg (observation). Status is Observation. Condition is Stable. Problem is new. Symptoms are unchanged. snw 19:37 18:57 09/08/2020 18:57 Hospitalization Ordered by Roland Wallace MD for Observation. cg Preliminary diagnosis is Chest pain on breathing; Pulmonary edema. Bed requested for Telemetry/MedSurg (observation). Status is Observation. Condition is Stable. Problem is new. Symptoms are unchanged. snw 21:22 16:19 Home Meds: aspirin 81 mg Oral tab; iw ll2 21:23 19:37 09/08/2020 18:57 Hospitalization Ordered by Roland Wallace MD for Observation. ll2 Preliminary diagnosis is Chest pain on breathing; Pulmonary edema. Bed requested for Telemetry/MedSurg (observation). Status is Observation. Condition is Stable. Problem is new. Symptoms are unchanged. cg
--- NOTE | 2020-09-08 18:57 | ER ---
Nurse's Notes [facility] Name: Diane Kitchen Age: 64 yrs Sex: Female : 1955 Arrival Date: 09/08/2020 Time: 15:56 Bed 14 Private MD: Fahad Garcia E Diagnosis: Chest pain on breathing;Pulmonary edema Presentation: 09/08 16:17 Chief complaint: Patient states: cough X 2 days. also has chills, body aches, sweaty. iw Coronavirus screen: chills, cough unrelated to allergies, fatigue, headache, shortness of breath, Client presents with at least one sign or symptom that may indicate coronavirus-19. Standard/surgical mask placed on the client. Provider contacted for isolation considerations. Ebola Screen: Patient negative for fever greater than or equal to 101.5 degrees Fahrenheit, and additional compatible Ebola Virus Disease symptoms Patient denies exposure to infectious person. Patient denies travel to an Ebola-affected area in the 21 days before illness onset. No symptoms or risks identified at this time. Initial Sepsis Screen: Does the patient meet any 2 criteria? No. Patient's initial sepsis screen is negative. Does the patient have a suspected source of infection? No. Patient's initial sepsis screen is negative. Risk Assessment: Do you want to hurt yourself or someone else? Patient reports no desire to harm self or others. Onset of symptoms was September 06, 2020. 16:17 Method Of Arrival: Ambulatory iw 16:17 Acuity: JYOTI 3 iw Triage Assessment: 21:22 Headache History: Denies prior headaches. General: Appears in no apparent distress. ll2 Pain: Also complains of. Pain: Pain began 2-3 days ago. Historical: - Allergies: 16:19 No Known Allergies; iw - Home Meds: 16:19 pravastatin 40 mg Oral tab [Active]; citalopram 20 mg tab 1 tab once daily [Active]; iw 21:22 aspirin 81 mg Oral tab [Active]; ll2 - PMHx: 16:19 Diverticulitis; Hypertension; Myocardial infarction; iw - PSHx: 16:19 Tubal ligation; partial hysterectomy; iw - Immunization history:: Adult Immunizations up to date. - Social history:: Smoking status: . Screenin:11 Abuse screen: Denies threats or abuse. Denies injuries from another. Nutritional aj1 screening: No deficits noted. Tuberculosis screening: No symptoms or risk factors identified. Fall Risk None identified. Assessment: 17:11 General: Appears. aj1 17:11 General: Appears in no apparent distress. uncomfortable, Behavior is calm, cooperative, aj1 appropriate for age. Pain: Complains of pain in forehead Pain does not radiate. Pain currently is 8 out of 10 on a pain scale. Neuro: Level of Consciousness is awake, alert, obeys commands, Oriented to person, place, time, situation, Metal Numerical Control Programmer are equal bilaterally Speech is normal, Facial symmetry appears normal, Reports headache. Cardiovascular: Heart tones S1 S2 present Patient's skin is warm and dry. Respiratory: Reports cough that is persistent Airway is patent Respiratory effort is even, unlabored, Respiratory pattern is regular, symmetrical, Breath sounds are clear bilaterally. GI: No signs and/or symptoms were reported involving the gastrointestinal system. : No signs and/or symptoms were reported regarding the genitourinary system. EENT: No signs and/or symptoms were reported regarding the EENT system. Derm: No signs and/or symptoms reported regarding the dermatologic system. Skin is pink, warm \T\ dry. normal. Musculoskeletal: No signs and/or symptoms reported regarding the musculoskeletal system. Circulation, motion, and sensation intact. 18:07 Reassessment: Patient appears in no apparent distress at this time. No changes from aj1 previously documented assessment. Patient and/or family updated on plan of care and expected duration. Pain level reassessed. Patient is alert, oriented x 3, equal unlabored respirations, skin warm/dry/pink. 19:36 Reassessment: No changes from previously documented assessment. Patient and/or family ll2 updated on plan of care and expected duration. Pain level reassessed. pt denies pain at this time and refuses the fentanyl. 21:20 Reassessment: Patient is alert, oriented x 3, equal unlabored respirations, skin ll2 warm/dry/pink. report given to JEFF wagner. Vital Signs: 16:17 BP 139 / 62; Pulse 72; Resp 18 S; Temp 97.7; Pulse Ox 97% on R/A; iw 17:11 BP 145 / 65; Pulse 69; Resp 12; Pulse Ox 95% on R/A; aj1 18:07 BP 156 / 67; Pulse 64; Resp 15; Pulse Ox 97% on R/A; aj1 18:44 BP 157 / 68; Pulse 64; Resp 15; Pulse Ox 98% on R/A; aj1 19:36 BP 184 / 75; Pulse 66; Resp 16; Pulse Ox 99% on R/A; ll2 ED Course: 15:56 Patient arrived in ED. ag5 15:57 Fahad Garcia MD is Private Physician. ag5 16:02 Jeannie Packer FNP-C is [facility]. snw 16:02 Luis Muse MD is Attending Physician. snw 16:17 Kenzie Lake, JEFF is Primary Nurse. aj1 16:18 Triage completed. iw 16:18 Arm band placed on. iw 16:51 XRAY Chest (1 view) In Process Unspecified. EDMS 17:11 Patient has correct armband on for positive identification. Bed in low position. Call aj1 light in reach. 17:11 No provider procedures requiring assistance completed. aj1 18:34 CT Chest For PE Angio In Process Unspecified. EDMS 18:56 Roland Wallace MD is Hospitalizing Provider. snw 21:23 Patient admitted, IV remains in place. ll2 Administered Medications: 17:09 Drug: fentaNYL (PF) 25 mcg Route: IVP; Site: right antecubital; aj1 19:02 Follow up: Response: No adverse reaction; RASS: Alert and Calm (0) aj1 20:19 Drug: fentaNYL (PF) 25 mcg Route: IVP; Site: right antecubital; ll2 20:52 Follow up: Response: No adverse reaction; RASS: Alert and Calm (0) ll2 Outcome: 18:57 Decision to Hospitalize by Provider. snw 21:22 Admitted to Med/surg accompanied by tech, via wheelchair, Report called to kristy 2 21:22 Condition: stable 21:22 Discharge instructions given to patient, Instructed on the need for admit, Demonstrated understanding of follow-up care. 21:23 Patient left the ED. ll2 Signatures: Dispatcher [employer] EDCT Kenzie Lake RN RN aj1 Jeannie Packer FNP-C TYPISTS SUPERVISOR-[employer] Whitney Almeida RN RN Daily Byrd ag5 Nicole Navas RN RN ll2 Corrections: (The following items were deleted from the chart) : 16:19 Home Meds: aspirin 81 mg Oral tab; iw ll2
--- NOTE | 2020-09-08 20:19 | P.HP ---
Certification for Inpatient Patient admitted to: Observation With expected LOS: <2 Midnights Patient will require the following post-hospital care: None Practitioner: I am a practitioner with admitting privileges, knowledge of patient current condition, hospital course, and medical plan of care. Services: Services provided to patient in accordance with Admission requirements found in Title 42 Section 412.3 of the Code of Federal Regulations Patient History Date of Service: 09/08/20 Primary Care Provider: Doctor Garcia, Cardiology: Dr. Ortiz Reason for admission: Chest pain History of Present Illness: 64-year-old female with history of myocardial infarction, CAD, hyperlipidemia presents emergency department for 3-4 day history of intermittent chest pain and shortness of breath. Patient reports that she has episodes of chest pain described as tightness in the right anterior chest wall radiating to the neck and back that last for several min at a time. These episodes are not exacerbated or relieved by anything that she has noticed. Patient also reports on radiated intermittent shortness of breath and also some episodes of diaphoresis. Patient reports that in 2012 she had a heart attack and was supposed to have a cardiac catheterization but they were unable to catheterize her femoral artery due to the anatomical difficulties. Patient reports that now she is takes an aspirin daily. Patient reports last stress test was less than a year ago and negative. Patient's workup in the emergency department significant for negative troponin, chest x-ray unremarkable, D-dimer was mildly elevated at [address] PE protocol was performed which revealed no pulmonary embolus but mild ground-glass opacification scattered throughout the lung gómez, pattern favors alveolar edema rather than a viral pneumonia. Provider wishes to admit patient for further evaluation and management. When I saw the patient in the emergency department she is awake, alert, orient x3. Patient not experiencing any chest pain at this time. Patient be admitted under observation for further evaluation and management Allergies No Known Drug Allergies Allergy (Verified 02/18/17 01:04) Unknown No Known Allergie Allergy (Uncoded 06/09/16 05:59) Unknown No Known Allergies Allergy (Uncoded 02/17/17 22:18) Unknown Home medications list reviewed: Yes Home Medications: Aspirin [Aspirin EC 81 MG] 1 tab PO BEDTIME 02/18/17 Citalopram [Celexa*] 20 mg PO BEDTIME 02/18/17 Pravastatin Sodium 1 tab PO BEDTIME 02/18/17 lisinopriL [Prinivil*] 5 mg PO DAILY #30 tab 11/21/19 - Past Medical/Surgical History Diabetic: No -: DIVERTICULITIS -: HTN-NEW ONSET 01/2017 -: [place]-2012 -: PARTIAL HYSTERECTOMY -: TUBAL LIGATION Psychosocial/ Personal History: Patient lives at home with her and works as a nutritional specialist for the [employer] - Family History Father -: Heart disease, Stroke Mother -: Heart disease, Diabetes, Stroke - Social History Smoking Status: Former smoker Alcohol use: Yes CD- Drugs: No Caffeine use: Yes Place of Residence: Home Review of Systems 10-point ROS is otherwise unremarkable Respiratory: Shortness of Breath Cardiovascular: Chest Pain Physical Examination - Physical Exam General: Alert, In no apparent distress HEENT: Atraumatic, PERRLA, Mucous membr. moist/pink Neck: Supple, 2+ carotid pulse no bruit, No LAD Respiratory: Clear to auscultation bilaterally, Normal air movement Cardiovascular: Regular rate/rhythm, Normal S1 S2 Gastrointestinal: Normal bowel sounds, No tenderness Musculoskeletal: No tenderness Integumentary: No rashes Neurological: Normal speech, Normal strength at 5/5 x4 extr, Normal tone, Normal affect - Studies Laboratory Data (last 24 hrs) 09/08/20 17:00: PT 9.6, INR 0.81 09/08/20 17:00: WBC 4.8, Hgb 12.7, Hct 37.2, Plt Count 246 09/08/20 17:00: Sodium 141, Potassium 3.4 L, BUN 14, Creatinine 0.73, Glucose 108 H, Magnesium 2.4, Total Bilirubin 0.3, AST 23, ALT 33, Alkaline Phosphatase 107 Assessment and Plan - Plan Assessment Chest pain, shortness of breath with history of myocardial infarction-rule out ACS Hyperlipidemia Hypertension Plan Chest pain, shortness of breath with history of myocardial infarction-rule out ACS: Will trend troponins, cardiology consult in place, monitor on telemetry. DVT prophylaxis Lovenox 40 mg subcutaneous once daily. Continue daily aspirin, and beta landry. Hyperlipidemia: Continue home meds, lipid panel with morning labs Hypertension: Patient hypertensive in the emergency department, not taking any medications currently at home. Continue with low-dose metoprolol by mouth with hold parameters. Discharge Plan: Home Plan to discharge in: 24 Hours - Advance Directives Does patient have a Living Will: No Does patient have a Durable POA for Healthcare: No - Code Status/Comfort Care Code Status Assessed: Yes (Patient is full code) Critical Care: No Time Spent Managing Pts Care (In Minutes): 55
[2020-09-08 21:42] VITALS: BMI 28.3
[2020-09-08] MEDS ORDERED: ATORVASTATIN 10 MG TAB PO SCH (21:42)
[2020-09-08] MEDS ORDERED: HYDRALAZINE HCL 20 MG/ML VIAL IV PRN (21:42)
[2020-09-08] MEDS ORDERED: ONDANSETRON 4 MG/2 ML VIAL IV PRN (21:42)
[2020-09-08] MEDS ORDERED: MORPHINE 2 MG/ML SYR IV PRN (21:42)
[2020-09-08] MEDS ORDERED: POTASSIUM CL SA 10 MEQ TAB PO ONE (22:04)
[2020-09-08] MEDS ORDERED: PNEUMOCOCCAL VACCINE 0.5 ML IMVAC ONE (22:22)
[2020-09-09] MEDS: ACETAMINOPHEN 500 MG TAB PO PRN ×2 (02:42→10:56)
[2020-09-09 05:34] LABS: Absolute Lymphocytes (CBC) 1.4 K/uL (0.7-4.9); Basophils % 0.7 % (0-1.3); Hematocrit 37.9 % (36.0-45.0); Lymphocytes % 30.8 % (15.3-44.8); MPV 8.3 fL (7.6-11.3); RBC Red Blood Cell Count 4.36 M/uL (3.86-4.86)
[2020-09-09] MEDS ORDERED: METOPROLOL TAR 25 MG TAB PO SCH (06:00)
[2020-09-09 06:04] LABS: Potassium 3.9 mmol/L (3.5-5.1); Thyroid Stimulating Hormone 1.39 uIU/mL (0.360-3.740)
[2020-09-09 08:07] VITALS: O2SAT 96
--- NOTE | 2020-09-09 08:44 | P.PN ---
Subjective Date of Service: 09/09/20 Primary Care Provider: Doctor Garcia, Cardiology: Dr. Ortiz Chief Complaint: Chest pain fever Patient has atypical chest pain lower retrosternal he is has some fever and coughing quit smoking a long time ago mason virus tests is negative mild ground-glass changes Review of Systems 10-point ROS is otherwise unremarkable Physical Examination - Vital Signs Temperature: 97.5 F Blood Pressure: 143/62 Pulse: 71 Respirations: 18 Pulse Ox (%): 95 - Physical Exam General: Alert, In no apparent distress, Oriented x3 Respiratory: Clear to auscultation bilaterally Cardiovascular: No edema, Regular rate/rhythm Gastrointestinal: Normal bowel sounds, Soft and benign Musculoskeletal: No swelling - Studies Laboratory Data (last 24 hrs) 09/08/20 17:00: PT 9.6, INR 0.81 09/08/20 17:00: WBC 4.8, Hgb 12.7, Hct 37.2, Plt Count 246 09/08/20 17:00: Sodium 141, Potassium 3.4 L, BUN 14, Creatinine 0.73, Glucose 108 H, Magnesium 2.4, Total Bilirubin 0.3, AST 23, ALT 33, Alkaline Phosphatase 107 Assessment & Plan - Problems (Diagnosis) (1) URI (upper respiratory infection) Onset Date: 02/18/17 Current Visit: No Status: Acute Plan: Patient is a 64 years of age admitted with some chest discomfort cough fever no evidence of pulmonary embolism mild ground-glass changes mason virus test is negative white count is normal serum troponins are also negative EKG Rate is 72 beats/min. Rhythm is regular. QRS [place] is Normal. NM interval is normal. QRS snw interval is normal. QT interval is normal. No Q waves. T waves are Inverted. Clinical impression: NSR w/ Non-specific ST/T Changes Doubt cardiac plan to discharge her on some Zithromax Qualifiers: URI type: unspecified URI Qualified Code(s): J06.9 - Acute upper respiratory infection, unspecified Discharge Plan: Home
[2020-09-09] MEDS ORDERED: CITALOPRAM 10 MG TABLET PO SCH (09:00)
[2020-09-09] MEDS ORDERED: ENOXAPARIN 40 MG/0.4 ML SQ SCH (09:00)
[2020-09-09] MEDS ORDERED: POTASSIUM CL SA 10 MEQ TAB PO ONE (09:00)
[2020-09-09] MEDS ORDERED: predniSONE 20 MG TAB PO SCH (09:00)
[2020-09-09] MEDS ORDERED: ASPIRIN EC 81 MG TAB PO SCH (09:00)
[2020-09-09] MEDS ORDERED: AZITHROMYCIN 250 MG TAB PO SCH (09:00)
--- NOTE | 2020-09-09 13:27 | CON ---
Date of Consultation: 09/09/2020 Reason For Consultation: Chest pain. History Of Present Illness: This is a 64-year-old female with history of MO as per report, dyslipidemia, hypertension, presented with chest pain left-sided, radiates to the back with shortness of breath, cough, body aches, chills, nauseated, but no vomiting. No diarrhea. She was tested nega tive for COVID-19. Had a slightly elevated D-dimer and a CTA PE protocol was performed, was negative , but with the above bedside, she is pain free. Past Medical History: As outlined above in the HPI. Medications: Refer to reconciliation sheet for detailed list. Allergies: NO KNOWN DRUG ALLERGIES. Social History: She does not smoke or drink. Does not use any drugs. Review of Systems: All systems reviewed and they were negative except what mentioned in the HPI. Physical Examination: Vital Signs: Temperature is 97.5, pulse 71, breathing 18, blood pressure is 143/62, saturating 95% o n room air. General: Pleasant, a middle-aged female, in no apparent distress. Head and Neck: Pupils are equal, react to light. Intact eye movements. No JVD. No cervical lympha denopathy. Neck: Supple. Thyroid is not enlarged. Lungs: Clear to auscultation bilaterally. No rhonchi, rales, or crackles. No accessory muscle use. Heart: Regular rate and rhythm. No extra sounds. Abdomen: Soft, nontender. Bowel sounds positive. No organomegaly. No masses or hernia. No rigidi ty or rebound. Extremities: No edema, clubbing, or cyanosis. Intact pulses. Skin: No rash noted. Neurologic: Alert, awake, oriented x3. No acute focal deficits appreciated. Investigations: Chest x-ray is negative. CTA of the lungs negative for PE. Sodium 142, creatinine 0.69. Troponin x2 are negative. Assessment And Plan: 1.Chest pain, atypical with no acute specific ST changes on EKG. She apparently had cardiac workup including cardiac cath with Dr. Ortiz in the past. If the patient is pain free and cardiac enzymes are negative from cardiac standpoint, the patient can be discharged to follow up in the clinic for f urther workup if deemed to be necessary. 2.URI symptoms, likely has a viral illness. She was tested negative for COVID-19 as per report. Jimmy zapata, this could be still a viral syndrome. Continue supportive care. SR/MODL Voice ID: [id number] Report ID: [id number]
[2020-09-09 15:38] VITALS: BP 141/73; TEMP 97.6
--- NOTE | 2020-09-09 17:33 | P.DS ---
Admission Date: 09/08/20 Discharge Date: 09/09/20 Primary Care Provider: Doctor Garcia, Cardiology: Dr. Ortiz Disposition: ROUTINE DISCHARGE Discharge Condition: FAIR Reason for Admission: Chest pain fever - Problems (1) URI (upper respiratory infection) Onset Date: 02/18/17 Status: Acute Qualifiers: URI type: unspecified URI Qualified Code(s): J06.9 - Acute upper respiratory infection, unspecified Brief History of Present Illness: Patient is 64 years of age admitted with 3 day history of cough congestion and fever Hospital Course: Patient was admitted for observation seen by Cardiology recent cardiac CT done no evidence of acute coronary event mild ground-glass changes on the CT scan she was discharged on prednisone and Zithromax CT angio negative diagnostic data unremarkable per apart from an elevated D-dimer vital signs stable Vital Signs/Physical Exam: Temp Pulse Resp BP Pulse Ox 97.6 F 67 18 141/73 H 95 09/09/20 12:00 09/09/20 12:00 09/09/20 12:00 09/09/20 12:00 09/09/20 12:00 Laboratory Data at Discharge: WBC 4.6 K/uL (4.3-10.9) 09/09/20 05:00 Hgb 12.9 g/dL (12.0-15.0) 09/09/20 05:00 Hct 37.9 % (36.0-45.0) 09/09/20 05:00 Plt Count 244 K/uL (152-406) 09/09/20 05:00 PT 9.6 SECONDS (9.5-12.5) 09/08/20 17:00 INR 0.81 09/08/20 17:00 Sodium 142 mmol/L (136-145) 09/09/20 05:00 Potassium 3.9 mmol/L (3.5-5.1) 09/09/20 05:00 BUN 13 mg/dL (7-18) 09/09/20 05:00 Creatinine 0.69 mg/dL (0.55-1.3) 09/09/20 05:00 Glucose 109 mg/dL (74-106) H 09/09/20 05:00 Magnesium 2.4 mg/dL (1.8-2.4) 09/08/20 17:00 Total Bilirubin 0.3 mg/dL (0.2-1.0) 09/08/20 17:00 AST 23 U/L (15-37) 09/08/20 17:00 ALT 33 U/L (12-78) 09/08/20 17:00 Alkaline Phosphatase 107 U/L (45-117) 09/08/20 17:00 Troponin I < 0.02 ng/mL (0.0-0.045) 09/09/20 15:15 Triglycerides 318 mg/dL (<150) H 09/09/20 05:00 Cholesterol 179 mg/dL (<200) 09/09/20 05:00 HDL Cholesterol 41 mg/dL (40-60) 09/09/20 05:00 Cholesterol/HDL Ratio 4.37 09/09/20 05:00 Home Medications: Aspirin [Aspirin EC 81 MG] 1 tab PO BEDTIME 02/18/17 Citalopram [Celexa*] 20 mg PO BEDTIME 02/18/17 Pravastatin Sodium 1 tab PO BEDTIME 02/18/17 Benzonatate [Tessalon Per[place]] 100 mg PO TID PRN 09/08/20 Budesonide/Formoterol Fumarate [Symbicort 160-4.5 Mcg Inhaler] 1 puff IH DAILY PRN 09/08/20 Polyethylene Glycol 3350 [Miralax] 1 packet PO DAILY PRN 09/08/20 Psyllium Husk [Fiber] 2 cap PO DAILY PRN 09/08/20 Azithromycin [Zithromax] 500 mg PO DAILY #5 tablet 09/09/20 predniSONE [Deltasone*] 10 mg PO BID #14 tab 09/09/20 New Medications: predniSONE [Deltasone*] 10 mg PO BID #14 tab Azithromycin [Zithromax] 500 mg PO DAILY #5 tablet Diet: Regular Activity: Ad zeus Followup: Israel Johnson MD [OUTSIDE PHYSICIAN] -
== END 2020-09-09 16:17 | disposition home or self-care (01) ==
LOC: ER 15:55 → ERHOLD 19:25 → 2ND 21:05
PROVIDERS: ADMIT Internal Medicine Sleep Medicine; ATTEND Internal Medicine Sleep Medicine
DX: J06.9 Acute upper respiratory infection, unspecified (principal); Z20.828 Contact with and (suspected) exposure to other viral communicable diseases; I25.2 Old myocardial infarction; E78.5 Hyperlipidemia, unspecified; I10 Essential (primary) hypertension; R07.89 Other chest pain; Z87.891 Personal history of nicotine dependence; I25.10 Atherosclerotic heart disease of native coronary artery without angina pectoris; Z79.82 Long term (current) use of aspirin
CPT/HCPCS: 93005; 85025 ×2; 80048 ×2; 36415; 83735; 85610; 80061; 85379; 80076; 84443; 84484 ×4; 84439; 83880; 86140; 71275; 71045; 96374; 99285; U0003; Q9967; J0360; J1650; J3010 ×2; G0378 ×3; J2270; J7512

== ENCOUNTER 2020-09-17 07:55 | Day surgery (SDC) | payer OTHER ==
[~2020-09-17 07:55] MED LIST: NA CHLORIDE 0.9% 500 ML ONE
[2020-09-17] MEDS ORDERED: NA CHLORIDE 0.9% 500 ML ONE (08:08)
[2020-09-17] MEDS ORDERED: HEPA 1000U/500MLS 2,000 UNIT/1,000 ML BAG IV ONE (08:35)
[2020-09-17] MEDS ORDERED: LIDOCAINE 1% 20 ML MDV ONE (08:35)
[2020-09-17] MEDS ORDERED: FENTANYL CITR 100 MCG/2 ML ONE (09:54)
[2020-09-17] MEDS ORDERED: NICARDIPINE HCL 25 MG/10 ML IV ONE (09:54)
[2020-09-17] MEDS ORDERED: MIDAZOLAM HCL 2 MG/2 ML INJ ONE (09:54)
[2020-09-17] MEDS ORDERED: NITROGLYCERIN 100 MCG/ML SYR (for cath lab use only) IV ONE (09:55)
[2020-09-17] MEDS ORDERED: NITROGLYCERIN/D5W 25 MG/250 ML BTL IV ONE (09:55)
[2020-09-17] MEDS ORDERED: HEPARIN 5000 UNIT/ML 1 ML VIAL ONE (09:56)
[2020-09-17] MEDS ORDERED: HYDROCODONE/APAP 10/325 TAB PO ONE (13:00)
[2020-09-17 14:42] VITALS: BP 148/74; TEMP 96.9; O2SAT 96
== END 2020-09-17 14:35 | disposition home or self-care (01) ==
LOC: CCL 07:55
DX: I25.110 Atherosclerotic heart disease of native coronary artery with unstable angina pectoris (principal); I10 Essential (primary) hypertension; E78.2 Mixed hyperlipidemia; Z87.891 Personal history of nicotine dependence; Z82.49 Family history of ischemic heart disease and other diseases of the circulatory system
CPT/HCPCS: 93005; 36415; 85730; 93454; C1893; J1644 ×2; J2250; J3010; J7040

== ENCOUNTER 2021-05-11 13:38 | Observation (INO) | payer OTHER ==
--- OUTSIDE RECORDS SUMMARY | 2021-05-11 13:41 | XMS REPORT | Continuity of Care Document ---
:1955 Author Organization [facility] t Address [address] [place] [address] Care Team Providers Name Role Phone Asked, Pcp Primary Care Physician Unavailable Dilia Fry MD Attending Clinician Ba Vieira MD Attending Clinician Payers Payer Name Policy Type Policy Effective Date Expiration Source Number Date [id number] [facility] [id number] 2020-Pr esentPPO Problems This patient has no known problems. Allergies, Adverse Reactions, Alerts Allergy Allergy Status Severity Reaction(s) Onset Inactive Treating Comm ents Source Name Type Date Date Clinician No Known DA Active U 2019-11 [facility] Allergie 12-01 [facility] 00:00: [address] Social History Social Habit Start Date Stop Date Quantity Comments Source Tobacco use and 2020-09-19 2020-09-19 Former user [place] [employer] exposure 00:00:00 00:00:00 Sex Assigned [birth year] [facility] ethodist 00:00:00 00:00:00 Smoking Status Start Date Stop Date Source Former smoker 2020-09-19 00:00:00 2020-09-19 00:00:00 [place] [facility] Medications This patient has no known medications. Immunizations Ordered Immunization Filled Immunization Date Status Commen ts Source Name Name PFIZER COVID-19 MRNA 2021-02-13 Completed [place] [facility] 00:[place]:00 [facility] PFIZER COVID-19 MRNA 2021-01-23 Completed [place] [facility] 00:00:00 [facility] Vital Signs Vital Name Observation Time Observation Value Comments Source Systolic blood 2020-09-19 22:30:00 122 mm[Hg] [place] [facility] pressure Diastolic blood 2020-09-19 22:30:00 58 mm[Hg] [place] [facility] pressure Heart rate 2020-09-19 22:30:00 63 /min Damion Sebastian Body temperature 2020-09-19 22:30:00 36.78 Analy [place] [facility] Respiratory rate 2020-09-19 22:30:00 15 /min [place] [facility] Oxygen saturation in 2020-09-19 22:30:00 99 /min Damion Sebastian Arterial blood by Pulse oximetry Body height 2020-09-19 19:36:00 149.9 cm Damion Sebastian Body weight 2020-09-19 19:36:00 63.504 kg Damion Sebastian BMI 2020-09-19 19:36:00 28.28 kg/m2 Damion Sebastian Procedures Procedure Date / Time Performing Clinician Source Performed XR CHEST 1 VW PORTABLE 2020-09-19 20:47:31 Abdoul Vieira ECG ED PRELIMINARY 2020-09-19 20:37:04 Abdoul Vieira INTERPRETATION URINE CULTURE 2020-09-19 20:27:00 Abdoul Vieira URINALYSIS SCREEN AND 2020-09-19 20:27:00 Abdoul Vieira MICROSCOPY, WITH REFLEX TO CULTURE COMPREHENSIVE METABOLIC 2020-09-19 19:46:00 Abdoul Vieira PANEL HC COMPLETE BLD COUNT 2020-09-19 19:46:00 Abdoul Vieira W/AUTO DIFF PROTHROMBIN TIME WITH INR 2020-09-19 19:46:00 Abdoul Vieira PARTIAL THROMBOPLASTIN 2020-09-19 19:46:00 Abdoul Vieira TIME (PTT) B NATRIURETIC PEPTIDE 2020-09-19 19:46:00 Abdoul Vieira TROPONIN 2020-09-19 19:46:00 Abdoul Vieira CREATINE KINASE, TOTAL 2020-09-19 19:46:00 Abdoul Vieira H [facility] [facility] (CPK) ESTIMATED GFR 2020-09-19 19:46:00 Abdoul Vieiraist ECG 12-LEAD 2020-09-19 19:21:07 Abdoul Vieira Plan of Care Planned Activity Planned Date Details Comments Source Future Scheduled 2021-06-23 INFLUENZA VACCINE [place] [facility] Test 00:00:00 [code = INFLUENZA VACCINE] Future Scheduled 2021-06-23 INFLUENZA VACCINE [place] [facility] 00:00:00 [code = INFLUENZA VACCINE] Future Scheduled 2018 65+ PNEUMOCOCCAL [place] [facility] Test 00:00:00 VACCINE (1 of 1 - PPSV23) [code = 65+ PNEUMOCOCCAL VACCINE (1 of 1 - PPSV23)] Future Scheduled 2018 65+ PNEUMOCOCCAL [facility] Test 00:00:00 VACCINE (1 of 1 - PPSV23) [code = 65+ PNEUMOCOCCAL VACCINE (1 of 1 - PPSV23)] Future Scheduled 2003 BREAST CANCER [facility] Test 00:00:00 SCREENING [code = BREAST CANCER SCREENING] Future Scheduled 2003 COLONOSCOPY SCREENING [place] [facility] Test 00:00:00 [code = COLONOSCOPY SCREENING] Future Scheduled 2003 SHINGLES VACCINES (#1) [place] [facility] Test 00:00:00 [code = SHINGLES VACCINES (#1)] Future Scheduled 2003 BREAST CANCER [facility] Test 00:00:00 SCREENING [code = BREAST CANCER SCREENING] Future Scheduled 2003 COLONOSCOPY SCREENING [place] [facility] Test 00:00:00 [code = COLONOSCOPY SCREENING] Future Scheduled 2003 SHINGLES VACCINES (#1) [place] [facility] Test 00:00:00 [code = SHINGLES VACCINES (#1)] Future Scheduled 1971 Hepatitis C screening [place] [facility] Test 00:00:00 (procedure) [code = 594105668] Future Scheduled 1971 Hepatitis C screening [place] [facility] Test 00:00:00 (procedure) [code = 010983233] Future Scheduled 1965 COVID-19 VACCINE (1) [place] [facility] [facility] Test 00:00:00 [code = COVID-19 VACCINE (1)] Encounters Start End Encounter Admission Attending Care Care Encounter Source Date/Time Date/Time Type Type Clinicians Facility Department ID 2021-02-13 2021-02-13 Outpatient [facility] [id number] [place] 00:00:00 00:00:[address] EMILY [address] 2021-01-23 2021-01-23 Outpatient [facility] [id number] [place] 00:00:00 00:00:[address] 2020-09-19 2020-09-19 Emergency ABDOUL VIEIRA [facility] [id number] [place] 00:00:00 00:00:[address] Results Test Description Test Time Test Comments Results Result Comments Source BASIC METABOLIC PANEL 2020-10-02 06:28:00 Test Item Value Reference Range Interpretation Comme nts SODIUM (test code = NA) 137 MMOL/L 136-143 N POTASSIUM (test code = K) 3.6 MMOL/L 3.5-5.1 N CHLORIDE (test code = CL) 102 MMOL/L 98-107 N CARBON DIOXIDE (test code = 26 mmol/L 24-31 N CO2) GLUCOSE (test code = GLU) 103 mg/dL 70-104 N BLOOD UREA NITROGEN (test 12.7 MG/DL 7.0-21.0 N code = BUN) GLOMERULAR FILTRATION RATE >=60 max estimate >60 The estimated glomerular (test code = GFR) filtration rate is computed usingpatient ra ce, age (>18), sex, and serum creatinine. If anyof the neede d data elements are mi ssing the Laboratory nolvia ot compute an estimation of t he glomerular filtration rate . CREATININE (test code = 0.7 mg/dL 0.8-1.5 L CREAT) CALCIUM (test code = CA) 9.6 mg/dL 8.8-10.2 N LIPID PROFILE (CORONARY RISK)2020-10-02 06:28:00 Test Item Value Reference Range Interpretation Comments TRIGLYCERIDES (test 302 mg/dL 35-160 H code = TRIG) CHOLESTEROL (test code 197 mg/dL 0-200 N = CHOL) HDL CHOLESTEROL (test 37 mg/dL 45-65 L code = HDL) LIPOPROTEIN LDL (test 100 MG/DL 0-99 H INTERP RETATIVE code = LDLC) DATA:LDL Choles terol: Reference RangesOptimal: <100 mg/dLNear Optim al: 100 -129 mg/dLBorde rline High: 130 - 15 9 mg/dLHigh: 160 - 189 mg/dLVery High: = or > 190 mg/dL CORONARY RISK FACTOR 5.32 (test code = RISK) CHOL/HDL RISK MALE: 1/2 AVG 3.43 FEMALE: 1/2 AV G 3.27 AVG 4.97 AVG 4.44 2X AVG 9.55 2X AVG 7.05 3X AVG 23.39 3X AVG 11.04~~~~~~~~~~ ~~~~~~~ ~~~~~~~~~~~~~~~ ~~~~~~~ ~~~~~~~~~~~~~~~ ~~~~~~N ational Cholest maxine Education (NCEP ) Guidelines:~~~~ ~~~~~~~ ~~~~~~~~~~~~~~~ ~~~~~~~ ~~~~~~~~~~~~~~~ ~~~~~~~ ~~~~~ HDL Cholesterol<4 0mg/dL: HDL Cholesterol (Major risk factor for CHD)>60mg/dL: H DL Cholesterol (Ne gative risk factor for CHD)40-59mg/dL: Borderline Risk L DL Cholesterol<1 00mg/dL : Desirable LDL -C [id number] 0-159mg /dL: Borderline High Risk LDL-C [id number] 0-189mg /dL: High risk LDL-C concentration H DL-LDL Cholesterol is affected by a n umber of factors such as smoking, age an d sex.~~~~~~~~~~~ ~~~~~~~ ~~~~~~~~~~~~~~~ ~~~~~~~ ~~~~~~~~~~~~~~~ ~~~~~ CBC W/AUTO [id number] 06:07:00 Test Item Value Reference Range Interpretation Comments WHITE BLOOD CELL (test code = 4.2 x10 3/uL 4.8-10.8 L WBC) RED BLOOD CELL (test code = 4.31 x10 6/uL 4.20-5.40 N RBC) HEMOGLOBIN (test code = HGB) 12.7 g/dL 14.5-20 L HEMATOCRIT (test code = HCT) 38.4 % 37.0-47.0 N MEAN CELL VOLUME (test code = 89.1 fL 81.0-99.0 N MCV) MEAN CELL HGB (test code = MCH) 29.5 pg 27-31 N MEAN CELL HGB CONCENTRATION 33.1 G/DL 33-36.5 N (test code = MCHC) RED CELL DISTRIBUTION WIDTH 13.5 % 12.9-16.9 N (test code = RDW) PLATELET COUNT (test code = 216 150-440 N PLT) MEAN PLATELET VOLUME (test code 9.6 fL 8.9-12.4 N = MPV) NEUTROPHIL % (test code = NT%) 55.2 % 42.2-75.2 N LYMPHOCYTE % (test code = LY%) 32.8 % 20.5-51.1 N MONOCYTE % (test code = MO%) 10.2 % 1.7-9.3 H EOSINOPHIL % (test code = EO%) 1.4 % 0.0-7.0 N BASOPHIL % (test code = BA%) 0.2 % 0-2.5 N NEUTROPHIL # (test code = NT#) 2.32 x10 3/uL 1.80-7.70 N LYMPHOCYTE # (test code = LY#) 1.38 x10 3/uL 1.00-4.80 N MONOCYTE # (test code = MO#) 0.43 x10 3/uL 0.00-0.80 N EOSINOPHIL # (test code = EO#) 0.06 x10 3/uL 0.00-0.45 N BASOPHIL # (test code = BA#) 0.01 x10 3/uL 0.0-0.20 N COAGULATION TIME [id number] 15:16:00 Test Item Value Reference Range Interpretation Comments COAGULATION TIME ACTIVATED (test 483 SECONDS 74-137 H code = ACT) BASIC METABOLIC [id number] 13:55:00 Test Item Value Reference Range Interpretation Comments SODIUM (test code 141 MMOL/L 136-143 N = NA) POTASSIUM (test 4.1 MMOL/L 3.5-5.1 N code = K) CHLORIDE (test 104 MMOL/L 98-107 N code = CL) CARBON DIOXIDE 28 mmol/L 24-31 N (test code = CO2) GLUCOSE (test code 88 mg/dL 70-104 N = GLU) BLOOD UREA 11.1 MG/DL 7.0-21.0 N NITROGEN (test code = BUN) GLOMERULAR >=60 max >60 The estimated FILTRATION RATE estimate glomerular (test code = GFR) filtration rate is computed usingpatient ra ce, age (>18), sex, and serum creatinin e. If anyof the neede d data elements a re missing the Laboratory nolvia ot compute an estimation of t he glomerular filtration rate . CREATININE (test 0.7 mg/dL 0.8-1.5 L code = CREAT) CALCIUM (test code 9.5 mg/dL 8.8-10.2 N = CA) [id number] 13:55:00 Test Item Value Reference Range Interpretation Comments MAGNESIUM (test code = MAG) 2.2 mg/dL 1.4-2.6 N PROTHROMBIN [id number] 13:44:00 Test Item Value Reference Range Interpretation Comments PROTHROMBIN TIME 10.6 SECONDS 10.3-12.9 N PATIENT (test code = PTP) INTERNATIONAL 0.94 INR UNIT 0.9-1.11 N The INR is us eful only NORMAL RATIO (test for monit oring code = INR) anticoagulant therapy.It may be unreliable in t he initial phase o f antigoagulation and in unstable patien ts. Indication for Anticoagulation Recommend ed INR 1. Prevention o f venous thomboembolism 2.0-3.0in high -risk patients; treat ment of venousthrombosi s and pulmonary embol ism aftera course o f heparin; preven tion of systemicembolis m in a variety of cond itions, including atria l fibrillation an d prothetic tissu e heart valves, 2. Pros thetic mechanical hear t valves; 2.5-3.5recurren t systemic emboli sm. THROMBOPLASTIN TIME [id number] 13:44:00 Test Item Value Reference Range Interpretation Comments THROMBOPLASTIN TIME 33.7 SECONDS 23.8-34.8 N INTERPRE TATIVE PARTIAL (test code = DATA: erapeutic PTT) range: Unfractionated heparin:55 - 80 seconds Argatroban:1.5 to 3 times the basel ine PTT CBC W/AUTO [id number] 13:35:00 Test Item Value Reference Range Interpretation Comments WHITE BLOOD CELL (test code = 3.7 x10 3/uL 4.8-10.8 L WBC) RED BLOOD CELL (test code = 4.35 x10 6/uL 4.20-5.40 N RBC) HEMOGLOBIN (test code = HGB) 12.7 g/dL 14.5-20 L HEMATOCRIT (test code = HCT) 38.5 % 37.0-47.0 N MEAN CELL VOLUME (test code = 88.5 fL 81.0-99.0 N MCV) MEAN CELL HGB (test code = MCH) 29.2 pg 27-31 N MEAN CELL HGB CONCENTRATION 33.0 G/DL 33-36.5 N (test code = MCHC) RED CELL DISTRIBUTION WIDTH 13.1 % 12.9-16.9 N (test code = RDW) PLATELET COUNT (test code = 220 150-440 N PLT) MEAN PLATELET VOLUME (test code 10.0 fL 8.9-12.4 N = MPV) NEUTROPHIL % (test code = NT%) 51.8 % 42.2-75.2 N LYMPHOCYTE % (test code = LY%) 36.0 % 20.5-51.1 N MONOCYTE % (test code = MO%) 8.7 % 1.7-9.3 N EOSINOPHIL % (test code = EO%) 2.5 % 0.0-7.0 N BASOPHIL % (test code = BA%) 0.5 % 0-2.5 N NEUTROPHIL # (test code = NT#) 1.90 x10 3/uL 1.80-7.70 N LYMPHOCYTE # (test code = LY#) 1.32 x10 3/uL 1.00-4.80 N MONOCYTE # (test code = MO#) 0.32 x10 3/uL 0.00-0.80 N EOSINOPHIL # (test code = EO#) 0.09 x10 3/uL 0.00-0.45 N BASOPHIL # (test code = BA#) 0.02 x10 3/uL 0.0-0.20 N ECG 12 [id number] 18:14:41 Test Item Value Reference Range Interpretation Comments Ventricular rate (test 91 code = 253) Atrial rate (test code = 91 255) NC interval (test code = 130 266) QRSD interval (test code 76 = 260) QT interval (test code = 340 264) QTC interval (test code 418 = 265) P axis 1 (test code = 55 267) QRS axis 1 (test code = 8 268) T wave axis (test code = 56 270) EKG impression (test Normal sinus code = 273) rhythm-Nonspecific T wave abnormality-Abnormal ECG-No previous ECGs available-Electronica lly Signed By Chris Urias MD ([id number]) on 09/20/2020 6:14:39 PM Damion SebastianXR Chest 1 Vw [id number] 21:05:15Hm Interface, Radiology Results - 09/19/2020 9:08 PM CDT Examination: XR CHEST 1 VW PORTABLEClinical history: "chest pain" Comparison: NoneIMPRESSION: Mild bilateral lower lung atelectasis is seen. Heart size is within normal limits. Suspicious osseous lesion is not seen.[facility] [[email or web address] culture 2020-09-19 21:02:41 Test Item Value Reference Range Interpretation Comments Urine culture (test SEE COMMENT [place] screen code = [id number]) negative. Damion [facility] Preliminary Interpretation - Not an [id number] 20:37:04 Test Item Value Reference Range Interpretation Comments SHANEL (test code = SHANEL) Abdoul Vieira Jr., MD 09/22/2020 1:56 [facility] ED Preliminary Interpretation - Not an OrderPerformed by: Abdoul Vieira Jr., MDAuthorized by: Abdoul Vieira Jr., MD ECG reviewed by ED Physician in the absence of a decorating machine tender: yes Interpretation: Interpretation: abnormal Rate: ECG rate: 91 ECG rate assessment: normal Rhythm: Rhythm: sinus rhythm Ectopy: Ectopy: none QRS: QRS axis: Normal QRS intervals: NormalConduction: Conduction: normal ST segments: ST segments: Non-specificT waves: T waves: non-specific Lab Interpretation Abnormal (test code = 75054-3) Damion Sebastian
[2021-05-11 14:11] LABS: Absolute Lymphocytes (CBC) 1.7 K/uL (0.7-4.9); Hematocrit 38.3 % (36.0-45.0); MPV 8.2 fL (7.6-11.3); RBC Red Blood Cell Count 4.42 M/uL (3.86-4.86)
--- NOTE | 2021-05-11 14:15 | RAD REPORT ---
EXAM DESCRIPTION: Raymundo Single View05/11/2021 2:03 pm CLINICAL HISTORY: Chest pain COMPARISON: 2019 FINDINGS: The lungs appear clear of acute infiltrate. The heart is normal size IMPRESSION: No acute abnormalities displayed
[2021-05-11 14:20] LABS: Protime INR 0.91
[2021-05-11] MEDS ORDERED: ASPIRIN 81 MG CHEWABLE TABLET ONE (14:20)
[2021-05-11] MEDS ORDERED: NITROGLYCERIN 0.4 MG/TAB SL ONE (14:21)
[2021-05-11 14:39] LABS: ALT/SGPT 42 U/L (12-78); AST/SGOT 30 U/L (15-37); Albumin 3.8 g/dL (3.4-5.0); Alkaline Phosphatase 86 U/L (45-117); BUN Blood Urea Nitrogen 12 mg/dL (7-18); Bicarbonate 28 mmol/L (21-32); Bilirubin Direct 0.1 mg/dL (0-0.2); Bilirubin Total 0.6 mg/dL (0.2-1.0); Glucose Level 111 mg/dL (74-106); Magnesium 2.5 mg/dL (1.8-2.4); NT PRO-BNP 71 pg/mL (<125); Potassium 3.7 mmol/L (3.5-5.1); Sodium Level 141 mmol/L (136-145); Troponin (Emerg Dept Use Only) < 0.02 ng/mL (0.0-0.045)
--- NOTE | 2021-05-11 15:04 | ER ---
Nurse's Notes [facility] Name: Diane Kitchen Age: 65 yrs Sex: Female : 1955 Arrival Date: 05/11/2021 Time: 13:40 Bed 2 Private MD: Fahad Garcia E Diagnosis: Chest pain, unspecified Presentation: 05/11 13:46 Chief complaint: Sudden onset left sided chest pain that radiates to left arm and upper hb back x 15 minutes. Pt was cooking when pain started. Cardiac stents placed Sep 2020. Coronavirus screen: At this time, the client does not indicate any symptoms associated with coronavirus-19. Ebola Screen: No symptoms or risks identified at this time. Initial Sepsis Screen: Does the patient meet any 2 criteria? No. Patient's initial sepsis screen is negative. Does the patient have a suspected source of infection? No. Patient's initial sepsis screen is negative. Risk Assessment: Do you want to hurt yourself or someone else? Patient reports no desire to harm self or others. Onset of symptoms was May 11, 2021. 13:46 Method Of Arrival: Ambulatory hb 13:46 Acuity: JYOTI 3 hb Historical: - Allergies: 13:50 No Known Allergies; hb - Home Meds: 13:50 aspirin 81 mg Oral tab [Active]; Celexa 20 mg Oral tab [Active]; citalopram 20 mg tab 1 hb tab once daily [Active]; pravastatin 40 mg Oral tab [Active]; Singulair 10 mg Oral tab [Active]; 15:02 clopidogrel 75 mg oral tab [Active]; metoprolol tartrate 25 mg Oral tab [Active]; jd3 - PMHx: 13:50 Diverticulitis; Hypertension; Myocardial infarction; hb - PSHx: 13:50 Tubal ligation; partial hysterectomy; hb 13:51 Heart stents(September 2020); hb - Immunization history:: Adult Immunizations up to date. - Social history:: Smoking status: Patient denies any tobacco usage or history of. Screenin:00 Abuse screen: Denies threats or abuse. Nutritional screening: No deficits noted. jd3 Tuberculosis screening: No symptoms or risk factors identified. Fall Risk IV access (20 points). Ambulatory Aid- None/Bed Rest/Nurse Assist (0 pts). Gait- Normal/Bed Rest/Wheelchair (0 pts) Mental Status- Oriented to own ability (0 pts). Total Gloria Fall Scale indicates No Risk (0-24 pts). Assessment: 14:30 General: Appears in no apparent distress. uncomfortable, Behavior is cooperative, jd3 appropriate for age, anxious. Pain: Complains of pain in chest Pain radiates to left shoulder Quality of pain is described as sharp, shooting, Pain began suddenly. Neuro: Level of Consciousness is awake, alert, obeys commands, Oriented to person, place, time, situation. Cardiovascular: Reports chest pain, Capillary refill < 3 seconds Patient's skin is warm and dry. Rhythm is regular. Respiratory: Reports shortness of breath at rest Airway is patent Respiratory effort is even, unlabored, Respiratory pattern is regular, symmetrical, Denies cough. GI: No signs and/or symptoms were reported involving the gastrointestinal system. : No signs and/or symptoms were reported regarding the genitourinary system. EENT: No signs and/or symptoms were reported regarding the EENT system. Derm: Skin is intact, Skin is dry, Skin is normal, Skin temperature is warm. Musculoskeletal: Circulation, motion, and sensation intact. Range of motion: intact in all extremities. 14:57 Reassessment: Patient appears in no apparent distress at this time. Patient and/or jd3 family updated on plan of care and expected duration. Pain level reassessed. Patient is alert, oriented x 3, equal unlabored respirations, skin warm/dry/pink. pt reports feeling good relief after second dose of Nitro Patient states feeling better. Patient states symptoms have improved. 15:51 Reassessment: Patient appears in no apparent distress at this time. Patient and/or jd3 family updated on plan of care and expected duration. Pain level reassessed. Patient is alert, oriented x 3, equal unlabored respirations, skin warm/dry/pink. Patient states feeling better. 16:34 Reassessment: Patient appears in no apparent distress at this time. Patient and/or jd3 family updated on plan of care and expected duration. Pain level reassessed. Patient is alert, oriented x 3, equal unlabored respirations, skin warm/dry/pink. report given to Bere AGUILAR for room 405. Vital Signs: 13:46 BP 154 / 73; Pulse 69; Resp 18; Temp 97.2; Pulse Ox 97% on R/A; Pain 8/10; hb 14:11 BP 121 / 70; Pulse 75; Resp 19 S; Pulse Ox 96% on R/A; jd3 14:57 BP 115 / 65; Pulse 58; Resp 16 S; Pulse Ox 97% on R/A; Pain 3/10; jd3 15:14 Weight 64.41 kg (R); jd3 15:51 BP 108 / 67; Pulse 59; Resp 16 S; Pulse Ox 96% on R/A; jd3 ED Course: 13:40 Patient arrived in ED. mr 13:40 Fahad Garcia MD is Private Physician. mr 13:42 Daniel Sommers, FCO is PHCP. pm1 13:42 Susan Benton MD is Attending Physician. pm1 13:49 Doug Christopher, JEFF is Primary Nurse. jd3 13:49 Triage completed. hb 13:50 Arm band placed on. jd3 13:56 Basic Metabolic Panel Sent. 5 13:56 CBC with Diff Sent. 5 13:56 LFT's Sent. 5 13:56 Magnesium Sent. 5 13:56 NT PRO-BNP Sent. 5 13:56 PT-INR Sent. 5 13:56 Troponin (emerg Dept Use Only) Sent. 5 13:57 Initial lab(s) drawn, by ED staff, sent to lab. EKG done, by ED staff, reviewed by [facility] Susan Benton MD. 14:01 XRAY Chest (1 view) In Process Unspecified. EDMS 14:06 COVID swab sent to lab. 5 14:10 Inserted saline lock: 20 gauge in left antecubital area, using aseptic technique. Blood jd3 collected. Patient maintains SpO2 saturation greater than 95% on room air. 14:59 Patient has correct armband on for positive identification. Placed in gown. Bed in low jd3 position. Call light in reach. Side rails up X2. Adult w/ patient. equipment monitor phototypesetting on. Pulse ox on. NIBP on. 15:04 Susan Gardner MD is Hospitalizing Provider. pm1 15:15 Geoffrey Villagomez is Hospitalizing Provider. pm1 16:34 No provider procedures requiring assistance completed. Patient admitted, IV remains in jd3 place. Administered Medications: 14:04 Drug: Aspirin Chewable Tablet 324 mg {Note: given X 3, 243 mg. pt reported taking 1 jd3 81mg this am.} Route: PO; 15:00 Follow up: Response: No adverse reaction jd3 14:04 Drug: Nitroglycerin 0.4 mg Route: Sublingual; jd3 14:11 Drug: Nitroglycerin 0.4 mg Route: Sublingual; jd3 14:50 Follow up: Response: No adverse reaction jd3 15:05 Follow up: Response: No adverse reaction jd3 15:06 Drug: Nitroglycerin 0.4 mg Route: Sublingual; jd3 16:00 Follow up: Response: No adverse reaction jd3 15:22 Drug: Lovenox (enoxaparin) 1 mg/kg Route: Sub-Q; Site: abdomen; jd3 16:00 Follow up: Response: No adverse reaction jd3 15:22 Drug: Pepcid (famotidine) 20 mg Route: PO; jd3 16:00 Follow up: Response: No adverse reaction jd3 Outcome: 15:04 Decision to Hospitalize by Provider. pm1 16:34 Admitted to Tele accompanied by tech, via wheelchair, room 405, with chart, Report jd3 called to Bere AGUILAR 16:34 Condition: stable 16:34 Instructed on the need for admit, Demonstrated understanding of instructions. 16:50 Patient left the ED. jscout Signatures: Dispatcher [employer] Marguerite Richardson TootieDaniel, GEOTHERMAL PRODUCTION MANAGER GEOTHERMAL PRODUCTION MANAGER pm1 Jennifer George RN RN hb Martinez, Maria [facility] Doug Christopher RN RN jd3 Corrections: (The following items were deleted from the chart) 14:44 13:56 [email or web address] drawn and sent. [address]
--- NOTE | 2021-05-11 15:04 | EDPHYS ---
Physician Documentation [facility] Name: Diane Kitchen Age: 65 yrs Sex: Female : 1955 Arrival Date: 05/11/2021 Time: 13:40 Bed 2 Private MD: Fahad Garcia E ED Physician Susan Benton HPI: 05/11 13:56 This 65 yrs old Female presents to ER via Ambulatory with complaints of Chest pm1 Pain. 13:56 The patient or guardian reports chest pain that is located primarily in the mid-sternal pm1 area. Onset: today, 15 minutes prior to arrival. The pain radiates to the left shoulder, back. Associated signs and symptoms: Pertinent positives: diaphoresis, dizziness, headache, shortness of breath, Pertinent negatives: abdominal pain, cough, nausea, vomiting. The chest pain is described as sharp. Duration: The patient or guardian reports multiple episodes, that are intermittent. Modifying factors: The symptoms are alleviated by nothing. the symptoms are aggravated by nothing. Severity of pain: in the emergency department the pain is unchanged. The patient has not recently seen a physician, the patient's primary care provider is Dr. Garcia. . Historical: - Allergies: 13:50 No Known Allergies; hb - Home Meds: 13:50 aspirin 81 mg Oral tab [Active]; Celexa 20 mg Oral tab [Active]; citalopram 20 mg tab 1 hb tab once daily [Active]; pravastatin 40 mg Oral tab [Active]; Singulair 10 mg Oral tab [Active]; 15:02 clopidogrel 75 mg oral tab [Active]; metoprolol tartrate 25 mg Oral tab [Active]; jd3 - PMHx: 13:50 Diverticulitis; Hypertension; Myocardial infarction; hb - PSHx: 13:50 Tubal ligation; partial hysterectomy; hb 13:51 Heart stents(September 2020); hb - Immunization history:: Adult Immunizations up to date. - Social history:: Smoking status: Patient denies any tobacco usage or history of. ROS: 13:56 Constitutional: Negative for fever, chills, and weight loss, Eyes: Negative for injury, pm1 pain, redness, and discharge, ENT: Negative for injury, pain, and discharge, Neck: Negative for injury, pain, and swelling. 13:56 Abdomen/GI: Negative for abdominal pain, nausea, vomiting, diarrhea, and constipation, Back: Negative for injury and pain, MS/Extremity: Negative for injury and deformity, Skin: Negative for injury, rash, and discoloration. 13:56 Cardiovascular: Positive for chest pain, Negative for edema, palpitations. 13:56 Respiratory: Positive for shortness of breath, Negative for cough, wheezing. 13:56 Neuro: Positive for dizziness, headache, Negative for numbness, tingling, weakness. Exam: 13:56 Constitutional: This is a well developed, well nourished patient who is awake, alert, pm1 and in no acute distress. Head/Face: Normocephalic, atraumatic. 13:56 Back: No spinal tenderness. No costovertebral tenderness. Full range of motion. Skin: Warm, dry with normal turgor. Normal color with no rashes, no lesions, and no evidence of cellulitis. MS/ Extremity: Pulses equal, no cyanosis. Neurovascular intact. Full, normal range of motion. 13:56 Eyes: Exam is negative for acute changes, Extraocular movements: intact throughout, Conjunctiva: no acute changes, Sclera: no acute changes, icterus, is not appreciated. 13:56 ENT: Exam is negative for acute changes, Mouth: Lips: normal, Oral mucosa: normal, pink and intact, moist. 13:56 Chest/axilla: Inspection: normal, Palpation: is normal, no crepitus, no tenderness. 13:56 Cardiovascular: Rate: bradycardic, actual rate is 59 bpm, Rhythm: regular, Pulses: no pulse deficits are appreciated, Heart sounds: normal, normal S1and S2, Edema: is not appreciated. 13:56 Respiratory: Exam negative for acute changes, respiratory distress, shortness of breath, Breath sounds: are clear throughout. 13:56 Abdomen/GI: Inspection: abdomen appears normal, Palpation: abdomen is soft and non-tender, in all quadrants. 13:56 Neuro: Exam negative for acute changes, Orientation: is normal, Mentation: is normal, Motor: is normal, moves all fours. Vital Signs: 13:46 BP 154 / 73; Pulse 69; Resp 18; Temp 97.2; Pulse Ox 97% on R/A; Pain 8/10; hb 14:11 BP 121 / 70; Pulse 75; Resp 19 S; Pulse Ox 96% on R/A; jd3 14:57 BP 115 / 65; Pulse 58; Resp 16 S; Pulse Ox 97% on R/A; Pain 3/10; jd3 15:14 Weight 64.41 kg (R); jd3 15:51 BP 108 / 67; Pulse 59; Resp 16 S; Pulse Ox 96% on R/A; jd3 MDM: 13:48 Patient medically screened. pm1 15:03 Data reviewed: vital signs. Data interpreted: Pulse oximetry: on room air is 97 %. pm1 Interpretation: normal. Counseling: I had a detailed discussion with the patient and/or guardian regarding: the historical points, exam findings, and any diagnostic results supporting the discharge/admit diagnosis, lab results, radiology results, the need for further work-up and treatment in the hospital. 15:09 ED course: patient with bradycardia. Heart rate in the upper 50's. Patient takes pm1 metoprolol 25 mg daily and it took already today. Therefore no additional beta-blockade given. 15:14 Physician consultation: Geoffrey Hernando was called at 15:12, was contacted at 15:12, pm1 regarding admission, patient's condition, observation admission. 05/11 13:48 Order name: Basic Metabolic Panel; Complete Time: 14:52 pm05/11 13:48 Order name: CBC with Diff; Complete Time: 14:32 pm1 05/11 13:48 Order name: LFT's; Complete Time: 14:52 pm1 05/11 13:48 Order name: Magnesium; Complete Time: 14:52 pm1 05/11 13:48 Order name: NT PRO-BNP; Complete Time: 14:52 pm1 05/11 13:48 Order name: PT-INR; Complete Time: 14:32 pm1 05/11 13:48 Order name: Troponin (emerg Dept Use Only); Complete Time: 14:52 pm1 05/11 13:48 Order name: XRAY Chest (1 view); Complete Time: 14:16 pm1 05/11 16:01 Order name: SARS-COV-2 RT PCR EDMS 05/11 13:48 Order name: EKG; Complete Time: 13:50 pm1 05/11 13:48 Order name: Cardiac monitoring; Complete Time: 13:52 pm1 05/11 13:48 Order name: EKG - Nurse/Tech; Complete Time: 13:51 pm1 05/11 13:48 Order name: IV Saline Lock; Complete Time: 13:56 pm1 05/11 13:48 Order name: Labs collected and sent; Complete Time: 13:56 pm1 05/11 13:48 Order name: O2 Per Protocol; Complete Time: 13:51 pm1 05/11 13:48 Order name: O2 Sat Monitoring; Complete Time: 13:51 pm1 Administered Medications: 14:04 Drug: Aspirin Chewable Tablet 324 mg {Note: given X 3, 243 mg. pt reported taking 1 jd3 81mg this am.} Route: PO; 15:00 Follow up: Response: No adverse reaction jd3 14:04 Drug: Nitroglycerin 0.4 mg Route: Sublingual; jd3 14:11 Drug: Nitroglycerin 0.4 mg Route: Sublingual; jd3 14:50 Follow up: Response: No adverse reaction jd3 15:05 Follow up: Response: No adverse reaction jd3 15:06 Drug: Nitroglycerin 0.4 mg Route: Sublingual; jd3 16:00 Follow up: Response: No adverse reaction jd3 15:22 Drug: Lovenox (enoxaparin) 1 mg/kg Route: Sub-Q; Site: abdomen; jd3 16:00 Follow up: Response: No adverse reaction jd3 15:22 Drug: Pepcid (famotidine) 20 mg Route: PO; jd3 16:00 Follow up: Response: No adverse reaction jd3 Disposition: 05/11/21 15:04 Hospitalization ordered by Geoffrey Villagomez for Observation. Preliminary diagnosis is Chest pain, unspecified. - Bed requested for Telemetry/MedSurg (observation). - Status is Observation. jd3 - Condition is Stable. - Problem is new. - Symptoms have improved. Signatures: Dispatcher [employer] EDMS Trish Moore, RN Daniel Paiz NP POPULATION HEALTH COACH pm1 Jennifer George RN Doug Benitez RN RN jd3 Corrections: (The following items were deleted from the chart) 14:44 13:53 CORONAVIRUS+MR.LAB.BRZ ordered. EDMS EDMS 15:15 15:04 Hospitalization Ordered by Susan Gardner MD for Observation. Preliminary pm1 diagnosis is Chest pain, unspecified. Bed requested for Telemetry/MedSurg (observation). Status is Observation. Condition is Stable. Problem is new. Symptoms have improved. pm1 16:07 15:15 05/11/2021 15:04 Hospitalization Ordered by Geoffrey Villagomez for Observation. dw Preliminary diagnosis is Chest pain, unspecified. Bed requested for Telemetry/MedSurg (observation). Status is Observation. Condition is Stable. Problem is new. Symptoms have improved. pm1 16:50 16:07 05/11/2021 15:04 Hospitalization Ordered by Geoffrey Villagomez for Observation. jd3 Preliminary diagnosis is Chest pain, unspecified. Bed requested for Telemetry/MedSurg (observation). Status is Observation. Condition is Stable. Problem is new. Symptoms have improved. dw
[2021-05-11] MEDS ORDERED: FAMOTIDINE 20 MG TAB ONE (15:38)
[2021-05-11] MEDS ORDERED: ENOXAPARIN 60 MG/0.6 ML SQ ONE (15:38)
--- NOTE | 2021-05-11 16:49 | P.HP ---
Certification for Inpatient Patient admitted to: Observation With expected LOS: <2 Midnights Practitioner: I am a practitioner with admitting privileges, knowledge of patient current condition, hospital course, and medical plan of care. Services: Services provided to patient in accordance with Admission requirements found in Title 42 Section 412.3 of the Code of Federal Regulations Patient History Date of Service: 05/11/21 Reason for admission: Chest pain History of Present Illness: 65-year-old woman with a history of coronary artery disease status 3 cardiac stents placed in September 2020, hypertension and anxiety disorder presented to the emergency department with a complaint of chest pain of onset 20 min prior to arrival. Patient described intermittent substernal chest pain, radiating to the left axilla, no known relieving or aggravating factors, not related to exertion, associated with diaphoresis. Patient denied any palpitation, cough or fever. Her initial troponin in the ED is negative. EKG demonstrated sinus rhythm, no ischemic changes. Chest x-ray no acute changes. Patient noted to be bradycardic. She was given a dose of Lovenox and aspirin in the ED. She is placed under observation for ACS rule out. Allergies No Known Drug Allergies Allergy (Verified 09/12/20 16:36) Unknown Home Medications: Aspirin [Aspirin EC 81 MG] 1 tab PO BEDTIME 02/18/17 Citalopram [Celexa*] 20 mg PO BEDTIME 02/18/17 Pravastatin Sodium 1 tab PO BEDTIME 02/18/17 Benzonatate [Tessalon Perle] 100 mg PO TID PRN 09/08/20 Budesonide/Formoterol Fumarate [Symbicort 160-4.5 Mcg Inhaler] 1 puff IH DAILY PRN 09/08/20 Polyethylene Glycol 3350 [Miralax] 1 packet PO DAILY PRN 09/08/20 Psyllium Husk [Fiber] 2 cap PO DAILY PRN 09/08/20 Azithromycin [Zithromax] 500 mg PO DAILY #5 tablet 09/09/20 predniSONE [Deltasone*] 10 mg PO BID #14 tab 09/09/20 - Past Medical/Surgical History Diabetic: No -: DIVERTICULITIS -: HTN-NEW ONSET 01/2017-resolved -: SD-2012 -: melena previous -: stomach polyps-removed -: ASTHMA -: PARTIAL HYSTERECTOMY -: TUBAL LIGATION -: colonoscopy with polyps removal 06/2020 -: right breast cyst removed -: right thumb trigger released -: fatty tissues removed on both legs Psychosocial/ Personal History: Patient lives at home with her and 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 Physical Examination - Physical Exam General: Alert, In no apparent distress, Oriented x3 HEENT: Atraumatic, Normocephalic, PERRLA, Mucous membr. moist/pink, EOMI, Sclerae nonicteric Neck: Supple, JVD not distended Respiratory: Clear to auscultation bilaterally, Normal air movement Cardiovascular: No edema, Regular rate/rhythm, Normal S1 S2 Gastrointestinal: Normal bowel sounds, Soft and benign, Non-distended, No tenderness Musculoskeletal: No swelling, No tenderness Integumentary: No rashes, No erythema Neurological: Normal speech, Normal strength at 5/5 x4 extr, Cranial nerves 3-12 intact Lymphatics: No axilla or inguinal lymphadenopathy - Studies Laboratory Data (last 24 hrs) 05/11/21 13:57: PT 10.5, INR 0.91 05/11/21 13:57: WBC 5.00, Hgb 13.2, Hct 38.3, Plt Count 238 05/11/21 13:57: Sodium 141, Potassium 3.7, BUN 12, Creatinine 0.92, Glucose 111 H, Magnesium 2.5 H, Total Bilirubin 0.6, AST 30, ALT 42, Alkaline Phosphatase 86 Assessment and Plan - Problems (Diagnosis) (1) Chest pain Current Visit: No Status: Active (2) Coronary artery disease Current Visit: Yes Status: Acute (3) History of heart artery stent Current Visit: Yes Status: Acute (4) Anxiety disorder Current Visit: Yes Status: Acute - Plan Place under observation. Continue to trend troponin. Continue aspirin. Patient is bradycardic and not able to give beta-landry. NTG p.r.n. Check lipid profile. Further management will depend on troponin result. She may need stress test done along the line. Reconcile home medications. - Advance Directives Does patient have a Living Will: No Does patient have a Durable POA for Healthcare: No
[2021-05-11 17:18] VITALS: BMI 28.6
[2021-05-11] MEDS ORDERED: NITROGLYCERIN 0.4 MG/TAB SL PRN (17:28)
[2021-05-11 18:06] LABS: HDL Cholesterol 41 mg/dL (40-60)
[2021-05-11 18:18] LABS: LDL, Direct 75 mg/dL (100-129)
[2021-05-11] MEDS ORDERED: MORPHINE 2 MG/ML SYR IV PRN (21:18)
[2021-05-11] MEDS ORDERED: HYDRALAZINE HCL 20 MG/ML VIAL IV PRN (21:58)
[2021-05-11] MEDS ORDERED: ACETAMINOPHEN 500 MG TAB PO PRN (22:08)
[2021-05-11] MEDS ORDERED: ATORVASTATIN 80 MG TAB PO SCH (23:00)
[2021-05-11] MEDS ORDERED: CITALOPRAM 10 MG TABLET PO SCH ×2 (23:30→23:38)
[2021-05-12] MEDS ORDERED: PANTOPRAZOLE 40MG TABLET PO ONE (01:41)
[2021-05-12 04:13] LABS: Absolute Lymphocytes (CBC) 1.3 K/uL (0.7-4.9); Basophils % 0.5 % (0-1.3); Hematocrit 37.8 % (36.0-45.0); Lymphocytes % 18.9 % (15.3-44.8); MPV 8.2 fL (7.6-11.3); RBC Red Blood Cell Count 4.36 M/uL (3.86-4.86)
[2021-05-12 04:46] LABS: Potassium 3.9 mmol/L (3.5-5.1); Thyroid Stimulating Hormone 1.52 uIU/mL (0.360-3.740)
[2021-05-12] MEDS ORDERED: ENOXAPARIN 40 MG/0.4 ML SQ SCH (09:00)
[2021-05-12] MEDS ORDERED: ASPIRIN EC 81 MG TAB PO SCH (09:00)
[2021-05-12] MEDS ORDERED: METOPROLOL XL 25 MG TAB PO SCH (09:00)
[2021-05-12] MEDS ORDERED: CLOPIDOGREL 75 MG TABLET PO SCH (09:00)
[2021-05-12 09:28] VITALS: O2SAT 96
[2021-05-12] MEDS ORDERED: POLYETHYL GLY 3350 17 GM/DOSE PO PRN (10:07)
--- NOTE | 2021-05-12 12:01 | P.DS ---
Admission Date: 05/11/21 Discharge Date: 05/12/21 Disposition: ROUTINE DISCHARGE Discharge Condition: FAIR Reason for Admission: Chest pain - Problems (1) Chest pain Current Visit: No Status: Active (2) Coronary artery disease Current Visit: Yes Status: Acute (3) History of heart artery stent Current Visit: Yes Status: Acute (4) Anxiety disorder Current Visit: Yes Status: Acute Brief History of Present Illness: 65-year-old woman with a history of coronary artery disease status 3 cardiac stents placed in September 2020, hypertension and anxiety disorder presented to the emergency department with a complaint of chest pain of onset 20 min prior to arrival. Patient described intermittent substernal chest pain, radiating to the left axilla, no known relieving or aggravating factors, not related to exertion, associated with diaphoresis. Patient denied any palpitation, cough or fever. Her initial troponin in the ED is negative. EKG demonstrated sinus rhythm, no ischemic changes. Chest x-ray no acute changes. Patient noted to be bradycardic. She was given a dose of Lovenox and aspirin in the ED. She is placed under observation for ACS rule out. Hospital Course: Troponin trended negative. Patient was chest pain-free during the hospital stay. ACS ruled out. Given patient's high cardiac risk factors, and cardiac stent patient will benefit stress test. Dr. Ortiz informed Billy assisting with arrangement for outpatient stress test. Noted patient has severe hypertriglyceridemia. Zetia added to Lipitor x-rays hyperlipidemia. Vital Signs/Physical Exam: Temp Pulse Resp BP Pulse Ox 97.0 F 63 16 136/68 96 05/12/21 08:00 05/12/21 09:12 05/12/21 08:00 05/12/21 09:12 05/12/21 08:00 Laboratory Data at Discharge: WBC 7.10 K/uL (4.3-10.9) D 05/12/21 03:40 Hgb 12.7 g/dL (12.0-15.0) 05/12/21 03:40 Hct 37.8 % (36.0-45.0) 05/12/21 03:40 Plt Count 208 K/uL (152-406) 05/12/21 03:40 PT 10.5 SECONDS (9.5-12.5) 05/11/21 13:57 INR 0.91 05/11/21 13:57 Sodium 143 mmol/L (136-145) 05/12/21 03:40 Potassium 3.9 mmol/L (3.5-5.1) 05/12/21 03:40 BUN 14 mg/dL (7-18) 05/12/21 03:40 Creatinine 0.81 mg/dL (0.55-1.3) 05/12/21 03:40 Glucose 98 mg/dL (74-106) 05/12/21 03:40 Magnesium 2.5 mg/dL (1.8-2.4) H 05/11/21 13:57 Total Bilirubin 0.6 mg/dL (0.2-1.0) 05/11/21 13:57 AST 30 U/L (15-37) 05/11/21 13:57 ALT 42 U/L (12-78) 05/11/21 13:57 Alkaline Phosphatase 86 U/L (45-117) 05/11/21 13:57 Troponin I < 0.02 ng/mL (0.0-0.045) 05/11/21 22:05 Triglycerides Cancelled 05/11/21 17:45 Cholesterol Cancelled 05/11/21 17:45 LDL Cholesterol Direct 75 mg/dL (100-129) L 05/11/21 13:57 HDL Cholesterol Cancelled 05/11/21 17:45 Cholesterol/HDL Ratio Cancelled 05/11/21 17:45 Home Medications: Aspirin [Aspirin EC 81 MG] 1 tab PO BEDTIME 02/18/17 Citalopram [Celexa*] 20 mg PO BEDTIME 02/18/17 Atorvastatin Calcium [Lipitor] 1 tab PO BEDTIME 05/11/21 Clopidogrel Bisulfate [Plavix*] 1 tab PO DAILY 05/11/21 Metoprolol Succinate 1 tab PO DAILY 05/11/21 Ezetimibe [Zetia] 10 mg PO DAILY #30 tab 05/12/21 New Medications: Ezetimibe [Zetia] 10 mg PO DAILY #30 tab Diet: AHA Activity: Ad zeus Followup: James Ortiz MD [ACTIVE - CAN ADMIT] - (Follow up with Dr. Ortiz in the office tomorrow. Please call [phone] around 8 am to confirm.) Fahad Garcia MD [Primary Care Provider] - 1 Week (PCP- call to schedule an appointment )
[2021-05-12 12:37] VITALS: BP 132/64; TEMP 97.6
[2021-05-12] MEDS ORDERED: CITALOPRAM 10 MG TABLET PO SCH ×2 (21:00)
[2021-05-12] MEDS ORDERED: ATORVASTATIN 80 MG TAB PO SCH (21:00)
--- NOTE | 2021-05-13 08:26 | EKG ---
Test Date: 2021-05-11 Test Time: 13:48:47 Direct Care Worker: PAYAM MEASUREMENT RESULTS: Intervals: Rate: 61 CT: 136 QRSD: 84 QT: 444 QTc: 446 Mingus: P: 53 CT: 136 QRS: 13 T: 47 INTERPRETIVE STATEMENTS: Normal sinus rhythm Normal ECG Compared to ECG 09/12/2020 15:52:32 No significant changes Electronically Signed On 05-13-21 08:24:08 CDT by James Ortiz
== END 2021-05-12 15:15 | disposition home or self-care (01) ==
LOC: ER 13:38 → ERHOLD 15:34 → 4TH 16:28
PROVIDERS: ADMIT Internal Medicine; ATTEND Internal Medicine
DX: R07.9 Chest pain, unspecified (principal); Z20.822 Contact with and (suspected) exposure to COVID-19; I25.10 Atherosclerotic heart disease of native coronary artery without angina pectoris; Z95.5 Presence of coronary angioplasty implant and graft; F41.9 Anxiety disorder, unspecified; I10 Essential (primary) hypertension; I25.2 Old myocardial infarction
CPT/HCPCS: 93005; 85025 ×2; 80048 ×2; 36415; 83721; 83735; 85610; 80061; 80076; 84443; 84484 ×4; 84439; 83880; 71045; U0003; J1650 ×2; J2270; G0378 ×3; 96372; 99285

== ENCOUNTER 2021-09-22 19:32 | Emergency (ER) | payer OTHER ==
[2021-09-22 21:05] LABS: Absolute Lymphocytes (CBC) 1.1 K/uL (0.7-4.9); Basophils % 0.6 % (0-1.3); Hematocrit 37.4 % (36.0-45.0); MPV 7.9 fL (7.6-11.3); RBC Red Blood Cell Count 4.19 M/uL (3.86-4.86)
[2021-09-22 21:06] LABS: Protime INR 0.87
--- NOTE | 2021-09-22 21:24 | RAD REPORT ---
EXAM DESCRIPTION: Raymundo Single View09/22/2021 9:09 pm CLINICAL HISTORY: Chest pain COMPARISON: April 2021 FINDINGS: The lungs appear clear of acute infiltrate. The heart is normal size IMPRESSION: No acute abnormalities displayed
[2021-09-22 21:26] LABS: ALT/SGPT 32 U/L (12-78); AST/SGOT 19 U/L (15-37); Albumin 3.7 g/dL (3.4-5.0); Alkaline Phosphatase 105 U/L (45-117); BUN Blood Urea Nitrogen 19 mg/dL (7-18); Bicarbonate 28 mmol/L (21-32); Bilirubin Direct < 0.1 mg/dL (0-0.2); Bilirubin Total 0.3 mg/dL (0.2-1.0); Glucose Level 104 mg/dL (74-106); Magnesium 2.5 mg/dL (1.8-2.4); NT PRO-BNP 29 pg/mL (<125); Potassium 3.2 mmol/L (3.5-5.1); Sodium Level 145 mmol/L (136-145); Troponin (Emerg Dept Use Only) < 0.02 ng/mL (0.0-0.045)
[2021-09-22] MEDS ORDERED: BENZONATATE 100 MG CAP PO ONE (22:08)
[2021-09-22] MEDS ORDERED: KETOROLAC 30 MG/ML INJ ONE (22:08)
--- NOTE | 2021-09-23 01:49 | ER ---
Nurse's Notes [facility] Name: Diane Kitchen Age: 65 yrs Sex: Female : 1955 Arrival Date: 09/22/2021 Time: 19:35 Bed 18 Private MD: Diagnosis: Acute bronchitis, unspecified Presentation: 09/22 19:47 Chief complaint: Patient states: headache, pain in chest, sore throat, cough x 2 days, lp1 reports feeling worse today; Denies fever, N/V/D. Coronavirus screen: congestion, cough unrelated to allergies, headache, muscle pain, runny nose, sore throat. Ebola Screen: No symptoms or risks identified at this time. Risk Assessment: Do you want to hurt yourself or someone else? Patient reports no desire to harm self or others. Onset of symptoms was September 22, 2021. 19:47 Method Of Arrival: Ambulatory lp1 19:47 Acuity: JYOTI 3 lp1 19:50 Note Patient reports receiving flu shot this morning. lp1 19:51 Initial Sepsis Screen: Does the patient meet any 2 criteria? No. Patient's initial lp1 sepsis screen is negative. Does the patient have a suspected source of infection? No. Patient's initial sepsis screen is negative. Triage Assessment: 20:35 General: Appears uncomfortable, Behavior is calm, cooperative. Pain: Complains of pain cc4 in back and chest Pain currently is 6 out of 10 on a pain scale. level that patient reports is acceptable is 0 out of 10 on a pain scale. Quality of pain is described as reports chest hurts with cough. Musculoskeletal: Capillary refill < 3 seconds, Range of motion: intact in all extremities, no tenderness. Historical: - Allergies: 19:50 No Known Allergies; lp1 - Home Meds: 19:50 aspirin 81 mg Oral tab [Active]; Celexa 20 mg Oral tab [Active]; citalopram 20 mg tab 1 lp1 tab once daily [Active]; clopidogrel 75 mg Oral tab [Active]; metoprolol tartrate 25 mg Oral tab [Active]; pravastatin 40 mg Oral tab [Active]; - PMHx: 19:50 Diverticulitis; Hypertension; Myocardial infarction; lp1 - PSHx: 19:50 None; lp1 - Immunization history:: Client reports receiving the 2nd dose of the Covid vaccine. - Social history:: Smoking status: Patient/guardian denies using tobacco, the patient reports quitting approximately 8 years ago. Screenin:35 Abuse screen: Denies threats or abuse. Nutritional screening: No deficits noted. cc4 Tuberculosis screening: No symptoms or risk factors identified. Fall Risk None identified. Assessment: 20:35 General: Appears uncomfortable, Behavior is calm, cooperative. Pain: Complains of pain cc4 in throat Pain does not radiate. Pain currently is 5 out of 10 on a pain scale. at worst was 6 out of 10 on a pain scale. Quality of pain is described as "sore/raw". Neuro: No deficits noted. Level of Consciousness is awake, alert, obeys commands, Oriented to person, place, time, situation. Respiratory: Reports cough that is non-productive, pain with cough since 09/21/2021 Pain is 5 out of 10 on a pain scale. Airway is patent Breath sounds are clear bilaterally. 21:15 Reassessment: Medicated for cough \\T\\ pain(see orders). cc4 22:30 Reassessment: Patient appears in no apparent distress at this time. Reports decreased cc4 cough; con't to report sore throat when questioned. 09/23 00:00 Reassessment: Patient appears in no apparent distress at this time. Resting quietly cc4 with \\T\\ bedside; VSS; NAD. 01:20 Reassessment: c/o nausea; ALEJANDRO Saini notified with new order received; Zofran 4 mg cc4 given slow IVP; no vomiting noted. Vital Signs: 09/22 19:51 BP 151 / 60; Pulse 75; Resp 18; Temp 98.5(O); Pulse Ox 97% on R/A; Weight 65.77 kg (R); lp1 Height 4 ft. 11 in. (149.86 cm); Pain 6/10; 20:35 BP 162 / 71; Pulse 75; Resp 20; Temp 98.1; Pulse Ox 98% on R/A; cc4 21:23 BP 136 / 60; Pulse 67; Resp 20; Pulse Ox 98% ; cc4 21:30 BP 138 / 62; Pulse 65; Resp 20; Pulse Ox 98% ; cc4 22:00 BP 160 / 64; Pulse 65; Resp 20; Pulse Ox 97% on R/A; cc4 22:35 BP 139 / 63; Pulse 70; Resp 20; Pulse Ox 97% on R/A; cc4 23:30 BP 126 / 74; Pulse 66; Resp 20; Pulse Ox 98% ; cc4 09/23 00:00 BP 134 / 65; Pulse 64; Resp 18; Pulse Ox 96% on R/A; cc4 00:30 BP 139 / 54; Pulse 65; Resp 20; Pulse Ox 97% on R/A; cc4 01:00 BP 158 / 64; Pulse 72; Resp 20; Pulse Ox 97% on R/A; cc4 02:00 BP 125 / 57; Pulse 66; Resp 18; Temp 98.0; Pulse Ox 96% on R/A; cc4 09/22 19:51 Body Mass Index 29.29 (65.77 kg, 149.86 cm) lp1 ED Course: 09/22 19:35 Patient arrived in ED. as 19:50 Triage completed. lp1 19:50 Arm band placed on left wrist. lp1 20:32 Bennett Bhakta PA is PHCP. cp 20:32 Itzel Lopez MD is Attending Physician. cp 20:35 Patient has correct armband on for positive identification. Bed in low position. Call cc4 light in reach. Side rails up X 1. monitoring engineer on. Pulse ox on. NIBP on. 20:38 Patty Solo, RN is Primary Nurse. cc4 20:57 Inserted saline lock: 20 gauge in left antecubital area, using aseptic technique. Blood ds4 collected. 21:08 XRAY Chest (1 view) In Process Unspecified. EDMS 21:28 Influenza Screen (a \\T\\ B) Sent. cc4 21:28 Strep Sent. cc4 21:29 Basic Metabolic Panel Sent. cc4 21:29 CBC with Diff Sent. cc4 22:12 CT Aorta for Dissection Sent. cc4 22:12 Throat Culture Sent. cc4 23:01 CT Aorta for Dissection In Process Unspecified. EDMS 09/23 02:00 No provider procedures requiring assistance completed. cc4 02:00 IV discontinued, intact, bleeding controlled, No redness/swelling at site. Pressure cc4 dressing applied. Administered Medications: 09/22 21:15 Drug: Tessalon Perle (benzonatate) 200 mg Route: PO; cc4 23:00 Follow up: Response: No adverse reaction; Marked relief of symptoms cc4 21:15 Drug: Ketorolac 15 mg Route: IVP; Site: left antecubital; cc4 23:00 Follow up: Response: No adverse reaction; Pain is decreased cc4 09/23 01:20 Drug: Zofran (Ondansetron) 4 mg Route: IVP; Site: left antecubital; cc4 02:00 Follow up: Response: No adverse reaction; Nausea is decreased cc4 Outcome: 01:49 Discharge ordered by . cp 02:00 Discharged to home ambulatory. cc4 02:00 Condition: improved 02:00 Discharge instructions given to patient, Instructed on discharge instructions, follow up and referral plans. medication usage, Demonstrated understanding of instructions, follow-up care, medications, Prescriptions given X 4. 02:15 Patient left the ED. mw2 Signatures: Dispatcher [employer] EDMS Марина Martinez Laura, RN RN lp1 Shankar Bruce ds4 Bennett Bhakta PA PA cp [place], MyKena mw2 Patty Solo RN RN cc4 Corrections: (The following items were deleted from the chart) 09/22 19:51 19:50 Home Meds: Singulair 10 mg Oral tab; lp1 lp1 21: 21:28 CORONAVIRUS+ drawn and [facility]. [facility] EDLA :45 23:30 General: Appears in no apparent distress. Behavior is calm, cooperative, 4 cc 23:45 23:30 Pain: Complains of pain in umbilicus area Pain does not radiate. Pain currently cc4 is 5 out of 10 on a pain scale. at worst was 9 out of 10 on a pain scale. level that patient reports is acceptable is 0 out of 10 on a pain scale. Quality of pain is described as burning, aching, Pain began 1 day ago. Is intermittent, Alleviated by rest, Aggravated by repositioning, cc4 23:45 23:30 Neuro: Level of Consciousness is awake, alert, obeys commands, Oriented to cc4 person, place, time, situation, cc4
--- NOTE | 2021-09-23 01:50 | EDPHYS ---
Physician Documentation [facility] Name: Diane Kitchen Age: 65 yrs Sex: Female : 1955 Arrival Date: 09/22/2021 Time: 19:35 Bed 18 Private MD: ED Physician Itzel Lopez HPI: 09/22 20:45 This 65 yrs old Female presents to ER via Ambulatory with complaints of Back cp Pain, Chest Pain, Cough, Headache. 20:45 The patient or guardian reports chest pain that is located primarily in the anterior cp chest wall, bilaterally. 20:45 Onset: 2 day(s) ago. Associated signs and symptoms: Pertinent positives: cough, cp headache, upper back pain, Pertinent negatives: abdominal pain, diaphoresis, lower extremity pain, lower extremity swelling, syncope, vomiting. 20:45 The chest pain is described as aching. cp 20:45 Modifying factors: the symptoms are aggravated by cough. Severity of pain: in the emergency department the pain is unchanged despite home interventions. Patient denies chest pain is similar to "heart attack" pain. Historical: - Allergies: 19:50 No Known Allergies; lp1 - Home Meds: 19:50 aspirin 81 mg Oral tab [Active]; Celexa 20 mg Oral tab [Active]; citalopram 20 mg tab 1 lp1 tab once daily [Active]; clopidogrel 75 mg Oral tab [Active]; metoprolol tartrate 25 mg Oral tab [Active]; pravastatin 40 mg Oral tab [Active]; - PMHx: 19:50 Diverticulitis; Hypertension; Myocardial infarction; lp1 - PSHx: 19:50 None; lp1 - Immunization history:: Client reports receiving the 2nd dose of the Covid vaccine. - Social history:: Smoking status: Patient/guardian denies using tobacco, the patient reports quitting approximately 8 years ago. ROS: 20:50 Constitutional: Negative for body aches, chills, fever, poor PO intake. cp 20:50 Cardiovascular: Positive for chest pain, with cough, Negative for edema, palpitations. cp 20:50 Respiratory: Positive for cough, with no reported sputum, Negative for shortness of breath, wheezing. 20:50 Abdomen/GI: Negative for abdominal pain, nausea, vomiting, and diarrhea, constipation. 20:50 Back: Positive for pain at rest, pain with movement, of the left scapular area and right scapular area. 20:50 : Negative for urinary symptoms. 20:50 Skin: Negative for rash. 20:50 Neuro: Positive for headache, Negative for altered mental status, syncope, weakness. 20:50 Eyes: Negative for injury, pain, redness, and discharge. cp 20:50 All other systems are negative. cp Exam: 20:42 ECG was reviewed by the Attending Physician. cp 20:55 Constitutional: The patient appears in no acute distress, alert, awake, cp non-diaphoretic, non-toxic, well developed, well nourished. 20:55 Head/Face: Normocephalic, atraumatic. cp 20:55 Eyes: Periorbital structures: appear normal, Conjunctiva: normal, no exudate, no injection, Sclera: no appreciated abnormality, Lids and lashes: appear normal, bilaterally. 20:55 ENT: External ear(s): are unremarkable, Nose: is normal, Mouth: Lips: moist, Oral mucosa: moist, Posterior pharynx: Airway: no evidence of obstruction, patent. 20:55 Neck: ROM/movement: is normal, is supple, no meningismus, no nuchal rigidity. 20:55 Chest/axilla: Inspection: normal. 20:55 Cardiovascular: Rate: normal, Rhythm: regular, Edema: is not appreciated, JVD: is not appreciated. 20:55 Respiratory: the patient does not display signs of respiratory distress, Respirations: normal, no use of accessory muscles, no retractions, labored breathing, is not present, Breath sounds: decreased breath sounds, are not appreciated, stridor, is not appreciated, + upper airway congestion. wheezing: is not appreciated. 20:55 Abdomen/GI: Inspection: abdomen appears normal, Palpation: abdomen is soft and non-tender, in all quadrants. 20:55 Back: pain, that is mild, of the left scapular area and right scapular area, ROM is normal. 20:55 Skin: cellulitis, is not appreciated, no rash present. 20:55 Neuro: Orientation: to person, place \\T\\ time. Mentation: is normal, Motor: moves all fours, strength is normal, Sensation: is normal. Vital Signs: 19:51 BP 151 / 60; Pulse 75; Resp 18; Temp 98.5(O); Pulse Ox 97% on R/A; Weight 65.77 kg (R); lp1 Height 4 ft. 11 in. (149.86 cm); Pain 6/10; 20:35 BP 162 / 71; Pulse 75; Resp 20; Temp 98.1; Pulse Ox 98% on R/A; cc4 21:23 BP 136 / 60; Pulse 67; Resp 20; Pulse Ox 98% ; cc4 21:30 BP 138 / 62; Pulse 65; Resp 20; Pulse Ox 98% ; cc4 22:00 BP 160 / 64; Pulse 65; Resp 20; Pulse Ox 97% on R/A; cc4 22:35 BP 139 / 63; Pulse 70; Resp 20; Pulse Ox 97% on R/A; cc4 23:30 BP 126 / 74; Pulse 66; Resp 20; Pulse Ox 98% ; cc4 09/23 00:00 BP 134 / 65; Pulse 64; Resp 18; Pulse Ox 96% on R/A; cc4 00:30 BP 139 / 54; Pulse 65; Resp 20; Pulse Ox 97% on R/A; cc4 01:00 BP 158 / 64; Pulse 72; Resp 20; Pulse Ox 97% on R/A; cc4 02:00 BP 125 / 57; Pulse 66; Resp 18; Temp 98.0; Pulse Ox 96% on R/A; cc4 09/22 19:51 Body Mass Index 29.29 (65.77 kg, 149.86 cm) lp1 MDM: 09/22 20:35 Patient medically screened. cp 21:00 Differential diagnosis: abnormal EKG, acute myocardial infarction, acute pericarditis, cp chest wall pain, pleurisy, pneumonia, pneumothorax, pulmonary embolus, stable angina, unstable angina, aortic aneurysm. 09/23 01:48 Data reviewed: vital signs, nurses notes, lab test result(s), EKG, radiologic studies, cp CT scan, plain films, and as a result, I will discharge patient. 01:48 Test interpretation: by ED physician or midlevel provider: ECG, plain radiologic cp studies. 01:48 Counseling: I had a detailed discussion with the patient and/or guardian regarding: the cp historical points, exam findings, and any diagnostic results supporting the discharge/admit diagnosis, lab results, radiology results, the need for outpatient follow up, a family practitioner, to return to the emergency department if symptoms worsen or persist or if there are any questions or concerns that arise at home. Response to treatment: the patient's symptoms have markedly improved after treatment, and as a result, I will discharge patient. 09/22 20:42 Order name: Basic Metabolic Panel 09/22 20:42 Order name: CBC with Diff 09/22 20:42 Order name: LFT's; Complete Time: 21:33 cp 09/22 20:42 Order name: Magnesium; Complete Time: 21:33 cp 09/22 21:33 Interpretation: MG 2.5; Reviewed. cp 09/22 20:42 Order name: NT PRO-BNP; Complete Time: 21:33 cp 09/22 20:42 Order name: PT-INR; Complete Time: 21:33 09/22 20:42 Order name: Troponin (emerg Dept Use Only); Complete Time: 21:33 09/22 20:42 Order name: Basic Metabolic Panel; Complete Time: 21:33 EDMA 09/22 21:34 Interpretation: Normal except: K 3.2; CL 111; BUN 19; GFR 82. cp 09/22 20:42 Order name: CBC with Automated Diff; Complete Time: 21:33 EDMA 09/22 20:43 Order name: Strep; Complete Time: 23:41 09/22 20:43 Order name: Influenza Screen (a \\T\\ B); Complete Time: 23:41 09/22 21:31 Order name: SARS-COV-2 RT PCR; Complete Time: 23:41 EDMA 09/22 22:03 Order name: Throat Culture EDMA 09/22 20:42 Order name: XRAY Chest (1 view); Complete Time: 21:33 cp 09/22 20:42 Order name: EKG; Complete Time: 20:42 cp 09/22 20:42 Order name: Cardiac monitoring; Complete Time: 20:58 cp 09/22 20:42 Order name: EKG - Nurse/Tech; Complete Time: 20:58 09/22 20:42 Order name: IV Saline Lock; Complete Time: 20:58 09/22 20:42 Order name: Labs collected and sent; Complete Time: 20:59 09/22 20:42 Order name: O2 Per Protocol; Complete Time: 20:59 cp 09/22 20:42 Order name: O2 Sat Monitoring; Complete Time: 20:59 cp 09/22 22:04 Order name: CT Aorta for Dissection cp 09/22 23:58 Order name: Troponin (emerg Dept Use Only) cp EC/31 20:42 Rate is 74 beats/min. Rhythm is regular. NH interval is normal. QRS interval is normal. cp QT interval is normal. T waves are Inverted in leads aVL, aVR. Interpreted by me. Reviewed by me. Administered Medications: 21:15 Drug: Tessalon Perle (benzonatate) 200 mg Route: PO; cc4 23:00 Follow up: Response: No adverse reaction; Marked relief of symptoms cc4 21:15 Drug: Ketorolac 15 mg Route: IVP; Site: left antecubital; cc4 23:00 Follow up: Response: No adverse reaction; Pain is decreased cc4 09/23 01:20 Drug: Zofran (Ondansetron) 4 mg Route: IVP; Site: left antecubital; cc4 02:00 Follow up: Response: No adverse reaction; Nausea is decreased cc4 Disposition: 06:44 Co-signature as Attending Physician, Itzel Lopez MD I agree with the assessment and sp3 plan of care. Disposition Summary: 09/23/21 01:49 Discharge Ordered Location: Home cp Problem: new cp Symptoms: have improved cp Condition: Stable cp Diagnosis - Acute bronchitis, unspecified cp Followup: cp - With: Private Physician - When: 2 - 3 days - Reason: Recheck today's complaints Discharge Instructions: - Discharge Summary Sheet cp - Acute Bronchitis, Adult cp Forms: - Medication Reconciliation Form cp - Thank You Letter cp - Antibiotic Education cp - Prescription Opioid Use cp - Work release form cc4 Prescriptions: - albuterol sulfate 90 mcg/actuation Inhalation HFA aerosol inhaler - inhale 1 puff by INHALATION route every 4-6 hours As needed; 1 Inhaler; cp Refills: 0, Product Selection Permitted - Tessalon Perles 100 mg Oral Capsule - take 2 capsule by ORAL route every 8 hours As needed; 30 capsule; Refills: 0, cp Product Selection Permitted - Zithromax Z-Rito 250 mg Oral Tablet - take 1 tablet by ORAL route as directed for 5 days Day 1 - take two (2) tablets cp one time. Day 2, 3, 4 , 5 take one (1) tablet once daily.; 6 tablet; Refills: 0, Product Selection Permitted - Medrol (Rito) 4 mg Oral Tablets, Dose Pack - take 1 tablet by ORAL route as directed - follow package instructions; 1 cp packet; Refills: 0, Product Selection Permitted Signatures: Dispatcher [employer] EDMA Sarahy Winston RN RN lp1 Bennett Bhakta PA PA cp Itzel Lopez MD MD sp3 Patty Solo RN RN cc4 Corrections: (The following items were deleted from the chart) 09/22 19:51 19:50 Home Meds: Singulair 10 mg Oral tab; lp1 lp1 : 20:44 CORONAVIRUS+MR.LAB.BRZ ordered. [facility] 09/23 04:21 09/22 20:50 All other systems are negative, cp cp
[2021-09-23] MEDS ORDERED: ONDANSETRON 4 MG/2 ML VIAL ONE (02:00)
[2021-09-23 02:23] VITALS: TEMP 98.1
[2021-09-23 02:32] VITALS: BP 139/54; O2SAT 97
--- NOTE | 2021-09-23 10:52 | RAD REPORT ---
EXAM DESCRIPTION: CT - Angio Aorta For Dissection - 09/23/2021 6:03 am CLINICAL HISTORY: 65 years, Female, back pain;Chest pain COMPARISON: 10/05/2017. TECHNIQUE: Multiple transaxial tomograms from the thoracic and abdominal aorta from the lung apex ba ses to the ischial tuberosities performed before and after the administration of large bolus of IV co ntrast at a rate of 5 cc per second for complete opacification of the thoracic, abdominal aorta and i liac arteries utilizing 2 mm slice thickness at 2 mm slice thickness. 2-D and 3-D multiplanar reformats, volume rendering technique and maximum intensity projection images were generated and reviewed. This exam was performed according to our departmental dose-optimization protocol, which includes auto mated exposure control, adjustment of the mA and/or kV according to patient size and/or use of iterat girma reconstruction technique. FINDINGS: Thoracic aorta: The thoracic aorta demonstrate to be within normal limits. There is no evidence for thoracic aortic d issection and/or aneurysm. The ascending portion measured 3 cm on image 39, the aortic arch measured 2.2 cm on image 29, the descending portion measured 1.9 cm on image 56. There is normal branching pat tern of the great vessels with no evidence for occlusion/or stenosis proximally. Abdominal aorta: The abdominal aorta demonstrate to be within normal limits. Minimal atheromatous plaque formation. No evidence for aneurysm/or dissection the proximal portion measured 1.8 cm on image 82, the midportion measured 1.3 cm on image 98 the distal portion measured 1.1 cm on image 115. The right common iliac artery measured 6.1 mm on image 113, the left common iliac artery measured 1.6 cm on image 129. There is minimal atheromatous plaque formation with no evidence for significant juhi nosis and/or occlusion. The celiac trunk, superior mesenteric artery and inferior mesenteric artery demonstrate to be patent with no evidence for significant stenosis and/or filling defects. There are single bilateral renal ar teries with no evidence for stenosis. Chest: The lung parenchyma demonstrate demonstrate to be clear. No significant pulmonary nodules and/ or masses. The trachea mainstem bronchus demonstrate to be unremarkable. There is no pleural/or pericardial effu sions. The heart is normal in size. There are minimal coronary artery calcific lesions and/or stenting. Ther e is normal opacification of the pulmonary arteries with no significant major filling defects that wi ll just pulmonary embolus. There is no significant mediastinal and/or hilar lymphadenopathy. The axil velia regions demonstrate to be clear. The bone windows demonstrate no significant skeletal lesions. Abdomen and pelvis: The liver the demonstrate decreased attenuation suggesting mild fatty infiltratio n. Otherwise the liver, gallbladder, spleen, adrenal glands, pancreas demonstrate to be unremarkable. The kidneys demonstrate normal uptake of contrast media. There is no evidence for hydronephrosis and/ or nephrolithiasis. There is a parapelvic lower pole left renal cyst measuring 2.4 x 1.6 cm on image 112. The unopacified stomach, small bowel and large bowel demonstrate to be unremarkable. There is no evid ence for bowel dilatation/or free air. The appendix is normal. There is diverticulosis within the sig nal:. The bowel demonstrate no evidence for dilatation. The stomach is grossly unremarkable. The urinary bladder is normal. The uterus is absent. There are no adnexal masses. There is no evidenc e for lymphadenopathy. There is no evidence for ascites. The bone windows demonstrate no significant skeletal abnormalities. Minimal degenerative disc disease is identified at L1-L4. IMPRESSION: No evidence for thoracic or abdominal aortic dissection and/or aneurysm. Minimal coronary artery calcific lesions and/or stenting. Mild fatty infiltration of the liver. Left renal cyst. Colonic diverticulosis without CT evidence for acute diverticulitis. Electronically signed by: Juan R Le MD 09/22/2021 11:28 PM CDT Due to temporary technical issues with the PACS/Fluency reporting system, reports are being signed by the in house radiologists without review as a courtesy to insure prompt reporting. The interpreting radiologist is fully responsible for the content of the report.
== END 2021-09-23 02:15 | disposition home or self-care (01) ==
LOC: ER 19:32
DX: J20.9 Acute bronchitis, unspecified (principal); I10 Essential (primary) hypertension; I25.2 Old myocardial infarction; Z79.82 Long term (current) use of aspirin; Z20.822 Contact with and (suspected) exposure to COVID-19
CPT/HCPCS: 93005; 87070; 85025; 80048; 36415; 83735; 85610; 80076; 87081; 84484 ×2; 83880; 87804 ×2; 71275; 74175; 71045; 96375; 96374; 99284; U0003; Q9967; J2405

== ENCOUNTER 2021-11-03 22:53 | Emergency (ER) | payer OTHER ==
--- OUTSIDE RECORDS SUMMARY | 2021-11-03 22:57 | XMS REPORT | Continuity of Care Document ---
:1955 Author Organization [facility] t Address [address] [place] [address] Care Team Providers Name Role Phone Irineo Attending Clinician Unavailable MARCUS Attending Clinician Unavailable ISHA Attending Clinician Unavailable Payers Payer Name Policy Type Policy Number Effective Date Expiration Date S ource Problems This patient has no known problems. Allergies, Adverse Reactions, Alerts Allergy Allergy Status Severity Reaction(s) Onset Inactive Treating Comm ents Source Name Type Date Date Clinician No Known DA Active U 2019-11 [facility] Allergie 12-01 [facility] 00:00: [facility] [place] 00 [facility] No Known DA Active 2019-11 [facility] Allergie 12-01 [facility] 00:00: [facility] [place] 00 [facility] Medications This patient has no known medications. Procedures This patient has no known procedures. Encounters Start End Encounter Admission Attending Care Care Encounter Source Date/Time Date/Time Type Type Clinicians Facility Department ID 2020-10-01 Inpatient Irineo [facility] DAYS [id number] [facility] 14:00:00 [facility] 2021-02-13 2021-02-13 Outpatient MARCUS [facility] [id number] 00:00:00 00:00:00 EM[address] 2021-01-23 2021-01-23 Outpatient [facility] [id number] 00:00:00 00:00:[address] 2020-09-19 2020-09-19 Emergency DARREL VIEIRA [facility] [id number] [place] 00:00:00 00:00:[address] Results [...] AVG 11.04~~~~~~~~~~ ~~~~~~~ ~~~~~~~~~~~~~~~ ~~~~~~~ ~~~~~~~~~~~~~~~ [facility]~~[facility] Education (NCEP ) Guidelines:~~~~ ~~~~~~~ ~~~~~~~~~~~~~~~ ~~~~~~~ ~~~~~~~~~~~~~~~ ~~~~~~~ ~~~~~ HDL Cholesterol<4 0mg/dL: HDL Cholesterol (Major risk factor for CHD)>60mg/dL: H DL Cholesterol (Ne gative risk factor for CHD)40-59mg/dL: Borderline Risk L DL Cholesterol<1 00mg/dL : Desirable LDL -C [id number] 0-159mg /dL: Borderline High Risk LDL-C [id number] 0-189mg /dL: High risk LDL-C concentration H DL-LDL Cholesterol is affected by a n umber of factors such as smoking, age an d sex.~~~~~~~~~~~ ~~~~~~~ ~~~~~~~~~~~~~~~ ~~~~~~~ ~~~~~~~~~~~~~~~ ~~~~~ CBC W/AUTO [id number] 06:07:00 Test Item Value Reference Range Interpretation [...] 0.01 x10 3/uL 0.0-0.20 N COAGULATION TIME [id number] 15:16:00 Test Item Value Reference Range Interpretation Comments COAGULATION TIME ACTIVATED (test 483 SECONDS 74-137 H code = ACT) BASIC METABOLIC [id number] 13:55:00 Test Item Value Reference Range Interpretation [...] code 9.5 mg/dL 8.8-10.2 N = CA) [id number] 13:55:00 Test Item Value Reference Range Interpretation Comments MAGNESIUM (test code = MAG) 2.2 mg/dL 1.4-2.6 N PROTHROMBIN [id number] 13:44:00 Test Item Value Reference Range Interpretation [...] 2.5-3.5recurren t systemic emboli sm. THROMBOPLASTIN TIME [id number] 13:44:00 Test Item Value Reference Range Interpretation Comments THROMBOPLASTIN TIME 33.7 SECONDS 23.8-34.8 N INTERPRE TATIVE PARTIAL (test code = DATA: erapeutic PTT) range: Unfractionated heparin:55 - 80 seconds Argatroban:1.5 to 3 times the basel ine PTT CBC W/AUTO [id number] 13:35:00 Test Item Value Reference Range Interpretation [...]
[2021-11-04 01:57] LABS: Urine Blood 1+ (Negative); Urine Glucose Negative (Negative); Urine Protein Negative (Negative); Urine Specific Gravity >=1.030 (1.005-1.030); Urine pH 5.5 (5.0-7.0)
[2021-11-04] MEDS ORDERED: metroNIDAZOLE 500 MG TABLET ONE (02:00)
[2021-11-04] MEDS ORDERED: CEFTRIAXONE 1000 MG/VIAL ONE (02:00)
[2021-11-04] MEDS ORDERED: NA CHLORIDE 0.9% 100 ML ONE (02:00)
[2021-11-04] MEDS ORDERED: NA CHLORIDE 0.9% 1,000 ML ONE (02:00)
[2021-11-04] MEDS ORDERED: levoFLOXacin 750 MG TAB ONE (02:05)
[2021-11-04 02:15] LABS: Absolute Lymphocytes (CBC) 0.9 K/uL (0.7-4.9); Basophils % 0.3 % (0-1.3); Hematocrit 37.3 % (36.0-45.0); Lymphocytes % 22.7 % (15.3-44.8); MPV 7.6 fL (7.6-11.3); RBC Red Blood Cell Count 4.24 M/uL (3.86-4.86)
[2021-11-04 02:46] LABS: ALT/SGPT 51 U/L (12-78); AST/SGOT 32 U/L (15-37); Albumin 3.4 g/dL (3.4-5.0); Alkaline Phosphatase 97 U/L (45-117); BUN Blood Urea Nitrogen 12 mg/dL (7-18); Bicarbonate 25 mmol/L (21-32); Bilirubin Direct 0.1 mg/dL (0-0.2); Bilirubin Total 0.4 mg/dL (0.2-1.0); Glucose Level 107 mg/dL (74-106); Lipase 185 U/L (73-393); Potassium 3.5 mmol/L (3.5-5.1); Protein, Total 6.8 g/dL (6.4-8.2); Sodium Level 142 mmol/L (136-145)
[2021-11-04 03:07] LABS: Blood Morphology Comment NOT SEEN (NOT SEEN); Platelet Estimate ADEQ
--- NOTE | 2021-11-04 03:57 | EDPHYS ---
Physician Documentation [facility] Name: Diane Kitchen Age: 65 yrs Sex: Female : 1955 Arrival Date: 11/03/2021 Time: 22:56 Bed 2 Private MD: ROOPA Physician Bennett Torres HPI: 11/04 01:56 This 65 yrs old Female presents to ER via Ambulatory with complaints of carlos Diarrhea, Nausea, Abdominal Pain. 01:56 This 65 yrs old Female presents to ER via Ambulatory with complaints of carlos Diarrhea, Nausea, Abdominal Pain. 01:56 The patient presents to the emergency department with abdominal pain, of the left lower carlos quadrant. 01:56 The patient presents to the emergency department with diarrhea, that is intermittent. carlos Onset: The symptoms/episode began/occurred 3 day(s) ago. Possible causes: unknown. The symptoms are aggravated by movement, pressure, The symptoms are alleviated by nothing. remaining still. Severity of symptoms: At their worst the symptoms were moderate in the emergency department the symptoms are unchanged. The patient has experienced similar episodes in the past, multiple times. Historical: - Home Meds: 02:11 aspirin 81 mg Oral tab [Active]; Celexa 20 mg Oral tab [Active]; citalopram 20 mg tab 1 tw5 tab once daily [Active]; clopidogrel 75 mg Oral tab [Active]; metoprolol tartrate 25 mg Oral tab [Active]; pravastatin 40 mg Oral tab [Active]; Singulair 10 mg Oral tab [Active]; - PMHx: 02:11 Diverticulitis; Hypertension; Myocardial infarction; tw5 - Immunization history:: Client reports receiving the 2nd dose of the Covid vaccine. - Social history:: Smoking status: Patient/guardian denies using tobacco, the patient reports quitting approximately 8 years ago. ROS: 01:57 Constitutional: Negative for fever, chills, and weight loss, Eyes: Negative for injury, carlos pain, redness, and discharge, ENT: Negative for injury, pain, and discharge, Neck: Negative for injury, pain, and swelling, Cardiovascular: Negative for chest pain, palpitations, and edema, Respiratory: Negative for shortness of breath, cough, wheezing, and pleuritic chest pain, Back: Negative for injury and pain, : Negative for injury, bleeding, discharge, and swelling, MS/Extremity: Negative for injury and deformity, Skin: Negative for injury, rash, and discoloration, Neuro: Negative for headache, weakness, numbness, tingling, and seizure, Psych: Negative for depression, anxiety, suicide ideation, homicidal ideation, and hallucinations, Allergy/Immunology: Negative for hives, rash, and allergies, Endocrine: Negative for neck swelling, polydipsia, polyuria, polyphagia, and marked weight changes, Hematologic/Lymphatic: Negative for swollen nodes, abnormal bleeding, and unusual bruising. 01:57 Abdomen/GI: Positive for abdominal pain, diarrhea, abdominal cramps, of the left lower quadrant. Exam: 01:57 Constitutional: This is a well developed, well nourished patient who is awake, alert, carlos and in no acute distress. Head/Face: Normocephalic, atraumatic. Eyes: Pupils equal round and reactive to light, extra-ocular motions intact. Lids and lashes normal. Conjunctiva and sclera are non-icteric and not injected. Cornea within normal limits. Periorbital areas with no swelling, redness, or edema. ENT: Nares patent. No nasal discharge, no septal abnormalities noted. Tympanic membranes are normal and external auditory canals are clear. Oropharynx with no redness, swelling, or masses, exudates, or evidence of obstruction, uvula midline. Mucous membranes moist. Neck: Trachea midline, no thyromegaly or masses palpated, and no cervical lymphadenopathy. Supple, full range of motion without nuchal rigidity, or vertebral point tenderness. No Meningismus. Chest/axilla: Normal chest wall appearance and motion. Nontender with no deformity. No lesions are appreciated. Cardiovascular: Regular rate and rhythm with a normal S1 and S2. No gallops, murmurs, or rubs. Normal PMI, no JVD. No pulse deficits. Respiratory: Lungs have equal breath sounds bilaterally, clear to auscultation and percussion. No rales, rhonchi or wheezes noted. No increased work of breathing, no retractions or nasal flaring. Back: No spinal tenderness. No costovertebral tenderness. Full range of motion. Skin: Warm, dry with normal turgor. Normal color with no rashes, no lesions, and no evidence of cellulitis. MS/ Extremity: Pulses equal, no cyanosis. Neurovascular intact. Full, normal range of motion. Neuro: Awake and alert, GCS 15, oriented to person, place, time, and situation. Cranial nerves II-XII grossly intact. Motor strength 5/5 in all extremities. Sensory grossly intact. Cerebellar exam normal. Normal gait. Psych: Awake, alert, with orientation to person, place and time. Behavior, mood, and affect are within normal limits. 01:57 Abdomen/GI: Inspection: abdomen appears normal, Bowel sounds: normal, Palpation: mild abdominal tenderness, moderate abdominal tenderness, in the left lower quadrant, Liver: no appreciated palpable abnormalities, Hernia: not appreciated. Vital Signs: 11/03 22:58 BP 160 / 74; Pulse 72; Resp 20; Temp 98.2; Pulse Ox 98% on R/A; Weight 65.77 kg; Height da3 4 ft. 11 in. (149.86 cm); 11/04 02:11 BP 130 / 70; Pulse 66; Resp 18; Pulse Ox 96% on R/A; Pain 6/10; tw5 03:39 BP 138 / 58; Pulse 70; Resp 18; Pulse Ox 99% on R/A; tw5 11/03 22:58 Body Mass Index 29.29 (65.77 kg, 149.86 cm) da3 MDM: 01:07 Patient medically screened. carlos 01:58 Differential diagnosis: Nonspecific abd pain, diverticulitis. Data reviewed: vital carlos signs, nurses notes, lab test result(s), radiologic studies, CT scan. Data interpreted: case monitor: rate is 72 beats/min, rhythm is regular, Pulse oximetry: on room air is 98 %. Test interpretation: by ED physician or midlevel provider:. Counseling: I had a detailed discussion with the patient and/or guardian regarding: the historical points, exam findings, and any diagnostic results supporting the discharge/admit diagnosis, lab results, radiology results, the need for outpatient follow up, for definitive care, a family practitioner, a res counselor. 11/04 01:52 Order name: Basic Metabolic Panel [facility] 11/04 01:52 Order name: CBC with Diff tw 11/04 01:52 Order name: Hepatic Function tw 11/04 01:52 Order name: Lipase tw 11/04 01:52 Order name: Basic Metabolic Panel; Complete Time: 02:51 EDMS 11/04 01:53 Order name: CBC with Automated Diff; Complete Time: 03:39 EDMS 11/04 01:53 Order name: Liver (Hepatic) Function; Complete Time: 02:51 EDAK 11/04 01:53 Order name: Lipase; Complete Time: 02:51 EDAK 11/04 01:56 Order name: CT Abd/Pelvis - IV Contrast Only carlos 11/04 01:56 Order name: Urine Dipstick-Ancillary; Complete Time: 02:19 EDAK 11/04 02:35 Order name: Manual Differential; Complete Time: 03:55 EDAK 11/04 01:52 Order name: IV Saline Lock; Complete Time: 02:18 tw5 11/04 01:52 Order name: Labs collected and sent; Complete Time: 03:10 tw5 11/04 01:52 Order name: Urine Dipstick-Ancillary (obtain specimen); Complete Time: 02:18 tw5 Administered Medications: 02:05 Not Given (Other Intervention Used): Flagyl (metroNIDAZOLE) 500 mg 100 ml IVPB at 200 bb ml/hr once over 30 mins 02:17 Drug: Rocephin (cefTRIAXone) 2 grams Route: IV; Rate: per protocol; Site: right tw5 antecubital; 04:47 Follow up: Response: No adverse reaction; IV Status: Completed infusion tw5 02:17 Drug: LevOfloxacin 750 mg Route: PO; tw5 04:47 Follow up: Response: No adverse reaction 02:17 Drug: NS 0.9% 1000 ml Route: IV; Rate: 1 bolus; Site: right antecubital; tw5 04:47 Follow up: Response: No adverse reaction; IV Status: Completed infusion tw 02:17 Drug: Flagyl (metroNIDAZOLE) 500 mg Route: PO; tw 04:46 Follow up: Response: No adverse reaction tw5 Disposition Summary: 11/04/21 03:56 Discharge Ordered Location: Home carlos Problem: new carlos Symptoms: have improved carlos Condition: Stable carlos Diagnosis - Abdominal tenderness carlos - Diarrhea, unspecified carlos - Diverticular disease of large intestine without perforation or abscess carlos - Bandemia carlos Followup: carlos - With: Private Physician - When: 2 - 3 days - Reason: Recheck today's complaints, Continuance of care, Re-evaluation by your physician Followup: carlos - With: - When: 2 - 3 days - Reason: Recheck today's complaints, Continuance of care, Re-evaluation by your physician Discharge Instructions: - Discharge Summary Sheet carlos - Food Choices to Help Relieve Diarrhea, Adult carlos - Diarrhea, Adult carlos - Diarrhea, Adult, [id number] carlos - Diverticulosis [facility] Forms: - Medication Reconciliation Form [facility] - Thank You Letter carlos - Antibiotic Education carlos - Prescription Opioid Use [facility] Prescriptions: - Flagyl 500 mg Oral Tablet - take 1 tablet by ORAL route every 8 hours for 7 days; 21 tablet; Refills: 0, [facility] Product Selection Permitted - Zofran 4 mg Oral Tablet - take 1 tablet by ORAL route every 12 hours As needed; 20 tablet; Refills: 0, [facility] Product Selection Permitted - dicyclomine 20 mg Oral Tablet - take 1 tablet by ORAL route 4 times per day; 28 tablet; Refills: 0, Product [facility] Selection Permitted - levofloxacin 500 mg Oral Tablet - take 1 tablet by ORAL route once daily for 7 days; 7 tablet; Refills: 0, [facility] Product Selection Permitted Signatures: Dispatcher [employer] Bennett Dye MD MD cha Ballard, Brenda, RN RN Jaron Staley, DRAFTING TEACHER-C DRAFTING TEACHER-Cla1 Farhad Gustafson RN RN da3 Bailey Moore 5
--- NOTE | 2021-11-04 03:57 | ER ---
Nurse's Notes [facility] Name: Diane Kitchen Age: 65 yrs Sex: Female : 1955 Arrival Date: 11/03/2021 Time: 22:56 Bed 2 Private MD: Diagnosis: Abdominal tenderness;Diarrhea, unspecified;Diverticular disease of large intestine without perforation or abscess;Bandemia Presentation: 11/03 22:58 Chief complaint: Patient states: diarrhea with pain on left lower quad x 2 days. da3 Coronavirus screen: Vaccine status: Patient reports receiving the 2nd dose of the covid vaccine. Ebola Screen: No symptoms or risks identified at this time. Initial Sepsis Screen: Does the patient meet any 2 criteria? No. Patient's initial sepsis screen is negative. Does the patient have a suspected source of infection? No. Patient's initial sepsis screen is negative. Risk Assessment: Do you want to hurt yourself or someone else? Patient reports no desire to harm self or others. Onset of symptoms was November 02, 2021 at 10:00. 22:58 Method Of Arrival: Ambulatory da3 22:58 Acuity: JYOTI 3 da3 Triage Assessment: 22:58 General: Appears in no apparent distress. uncomfortable, Behavior is calm, cooperative. da3 Pain: Complains of pain in abdomen Pain currently is 10 out of 10 on a pain scale. GI: No deficits noted. Historical: - Home Meds: 11/04 02:11 aspirin 81 mg Oral tab [Active]; Celexa 20 mg Oral tab [Active]; citalopram 20 mg tab 1 tw5 tab once daily [Active]; clopidogrel 75 mg Oral tab [Active]; metoprolol tartrate 25 mg Oral tab [Active]; pravastatin 40 mg Oral tab [Active]; Singulair 10 mg Oral tab [Active]; - PMHx: 02:11 Diverticulitis; Hypertension; Myocardial infarction; tw5 - Immunization history:: Client reports receiving the 2nd dose of the Covid vaccine. - Social history:: Smoking status: Patient/guardian denies using tobacco, the patient reports quitting approximately 8 years ago. Screenin:11 Abuse screen: Denies threats or abuse. Denies injuries from another. Nutritional tw5 screening: No deficits noted. Tuberculosis screening: No symptoms or risk factors identified. Fall Risk No fall in past 12 months (0 pts). No secondary diagnosis (0 pts). No IV (0 pts). Assessment: 02:09 General: Reports " I have been feeling better since I got here, but earlier the pain tw5 had me in tears" Patient states that she has a history of diverticulitis. Pain: Complains of pain in left upper quadrant and left lower quadrant Pain currently is 6 out of 10 on a pain scale. at worst was 10 out of 10 on a pain scale. Neuro: Level of Consciousness is awake, alert, obeys commands, Oriented to person, place, time, situation. Respiratory: Airway is patent Trachea midline Respiratory effort is even, unlabored. GI: Abdomen is flat, Abdomen is tender to palpation in left upper quadrant and left lower quadrant. : Urine is cloudy. 03:30 Reassessment: Patient appears in no apparent distress at this time. Patient is alert, lp1 oriented x 3, equal unlabored respirations, skin warm/dry/pink. Patient states feeling better. 03:39 Reassessment: Patient and/or family updated on plan of care and expected duration. Pain tw5 level reassessed. Patient is alert, oriented x 3, equal unlabored respirations, skin warm/dry/pink. Vital Signs: 11/03 22:58 BP 160 / 74; Pulse 72; Resp 20; Temp 98.2; Pulse Ox 98% on R/A; Weight 65.77 kg; Height da3 4 ft. 11 in. (149.86 cm); 11/04 02:11 BP 130 / 70; Pulse 66; Resp 18; Pulse Ox 96% on R/A; Pain 6/10; tw5 03:39 BP 138 / 58; Pulse 70; Resp 18; Pulse Ox 99% on R/A; tw5 11/03 22:58 Body Mass Index 29.29 (65.77 kg, 149.86 cm) da3 ED Course: 11/03 22:56 Patient arrived in ED. kc5 22:58 Arm band placed on left wrist. da3 23:03 Triage completed. da3 11/04 01:07 Sarahy Winston, JEFF is Primary Nurse. lp1 01:07 Bennett Torres MD is Attending Physician. carlos 02:11 Awaiting lab results, Awaiting CT Scan. tw5 02:11 Patient has correct armband on for positive identification. Placed in gown. Bed in low tw5 position. Call light in reach. Side rails up X 1. threat monitoring analyst on. Pulse ox on. NIBP on. Door closed. Noise minimized. Moved to private room. Warm blanket given. Verbal reassurance given. 02:11 Initial lab(s) drawn, by ED staff, sent to lab. Urine collected: clean catch specimen. tw5 Inserted saline lock: 22 gauge in right antecubital area, using aseptic technique. Blood collected. 02:18 Lipase Sent. tw 02:18 CBC with Automated Diff Sent. tw 02:18 Liver (Hepatic) Function Sent. tw 02:18 Basic Metabolic Panel Sent. tw 02:18 Basic Metabolic Panel Sent. 02:18 CBC with Diff Sent. 02:18 Hepatic Function Sent. 02:18 Lipase Sent. tw 03:30 CT Abd/Pelvis - IV Contrast Only In Process Unspecified. EDMS 03:55 Fahad Rosario MD is Referral Physician. [facility] 04:46 No provider procedures requiring assistance completed. IV discontinued, intact, tw5 bleeding controlled, No redness/swelling at site. Pressure dressing applied. Administered Medications: 02:05 Not Given (Other Intervention Used): Flagyl (metroNIDAZOLE) 500 mg 100 ml IVPB at 200 bb ml/hr once over 30 mins 02:17 Drug: Rocephin (cefTRIAXone) 2 grams Route: IV; Rate: per protocol; Site: right tw5 antecubital; 04:47 Follow up: Response: No adverse reaction; IV Status: Completed infusion 02:17 Drug: LevOfloxacin 750 mg Route: PO; 04:47 Follow up: Response: No adverse reaction 02:17 Drug: NS 0.9% 1000 ml Route: IV; Rate: 1 bolus; Site: right antecubital; tw 04:47 Follow up: Response: No adverse reaction; IV Status: Completed infusion 02:17 Drug: Flagyl (metroNIDAZOLE) 500 mg Route: PO; 04:46 Follow up: Response: No adverse reaction tw Outcome: 03:56 Discharge ordered by . carlos 04:46 Discharged to home ambulatory. tw 04:46 Condition: good 04:46 Discharge instructions given to patient, Instructed on discharge instructions, follow up and referral plans. medication usage, Demonstrated understanding of instructions, follow-up care, medications, Prescriptions given X 4. 04:46 Patient left the ED. tw5 Signatures: Dispatcher [employer] EDBennett Brown MD MD cha Pena, Laura RN RN lp1 Farhad Gustafson RN RN da3 Bailey Moore tw5 Roxana Hannah kc5 Maegan Vega RN bb
[2021-11-04 04:51] VITALS: TEMP 98.2
[2021-11-04 04:55] VITALS: BP 138/58; O2SAT 99
--- NOTE | 2021-11-04 15:21 | RAD REPORT ---
EXAM DESCRIPTION: CT - Abdomen Pelvis W Contrast - 11/04/2021 6:02 am CLINICAL HISTORY: 65 years, Female, ABD PAIN COMPARISON: 09/22/2021. TECHNIQUE: Contrast-enhanced images of the abdomen and pelvis were performed utilizing at 5 mm slice thickness at 5 mm interval reconstruction from the lung bases to the ischial tuberosities after the administration IV contrast. In addition multiplanar reformats in the coronal and sagittal plane were obtained and reviewed. This exam was performed according to our departmental dose-optimization protocol, which includes auto mated exposure control, adjustment of the mA and/or kV according to patient size and/or use of iterat girma reconstruction technique. FINDINGS: The lung bases demonstrate to be clear. There are coronary artery calcification and/or juhi nting. The liver demonstrate slight decreased attenuation suggesting mild fatty infiltration. Otherwise the liver, gallbladder, pancreas, spleen and adrenal glands demonstrate to be unremarkable, no focal lesi ons are noted. The kidneys demonstrate normal uptake of contrast media. No evidence for nephrolithiasis and/or hydro nephrosis. There is a lower pole left renal cyst measuring 2.5 x 1.7 cm on image 34 Grossly the unopacified stomach, small bowel and large bowel demonstrate to be within normal limits. There is no evidence for bowel dilatation and/or free air. The appendix is normal. There is diver ticulosis within the sigmoid colon with no evidence for diverticulitis. The urinary bladder demonstrate to be unremarkable. The uterus is absent. There are no adnexal mass es. The aorta demonstrate minimal atheromatous plaque formation extending into the aortic bifurcati on. There is no retroperitoneal lymphadenopathy. There is no evidence for ascites/or abnormal fluid collections. The bone windows demonstrate mild bony osteopenia. Minimal degenerative changes at L1-L4 and L5/S1. P robable vertebral body hemangioma at L3. IMPRESSION: No acute intra-abdominal process. Sigmoid diverticulosis with no evidence for diverticulitis. 2.5 cm left renal cyst. Status post hysterectomy. Coronary artery calcification and/or stenting. Mild fatty infiltration of the liver. No significant interval change. Electronically signed by: Juan R Le MD 11/04/2021 3:47 AM WOOD HEEL FITTER MACHINE Due to temporary technical issues with the PACS/Fluency reporting system, reports are being signed by the in house radiologists without review as a courtesy to insure prompt reporting. The interpreting radiologist is fully responsible for the content of the report.
== END 2021-11-04 04:46 | disposition home or self-care (01) ==
LOC: ER 22:53
DX: R19.7 Diarrhea, unspecified (principal); K57.32 Diverticulitis of large intestine without perforation or abscess without bleeding; D72.825 Bandemia
CPT/HCPCS: 96365; 85025; 80048; 36415; 80076; 81003; 83690; 74177; 99284; 96366; Q9967; J7030

== ENCOUNTER 2022-04-04 23:40 | Emergency (ER) | payer OTHER ==
--- OUTSIDE RECORDS SUMMARY | 2022-04-04 23:43 | XMS REPORT | Continuity of Care Document ---
:1955 Author Organization [facility] t Address [address] [place] [address] Care Team Providers Name Role Phone Irineo Attending Clinician Unavailable MARCUS Attending Clinician Unavailable ISHA Attending Clinician Unavailable HODGES Admitting Clinician Unavailable Irineo Admitting Clinician Unavailable Payers Payer Name Policy Type Policy Number Effective Date Expiration Date S ource Problems This patient has no known problems. Allergies, Adverse Reactions, Alerts Allergy Allergy Status Severity Reaction(s) Onset Inactive Treating Comm ents Source Name Type Date Date Clinician No Known DA Active U 2019-11 [facility] 12[facility]01 [facility] 00:00: [facility] 00 [facility] No Known DA Active U 2019-11 [facility] Allergie 12-01 [place] [facility] 00:00: [facility] 00 [facility] [place] Medications This patient has no known medications. Procedures This patient has no known procedures. Encounters Start End Encounter Admission Attending Care Care Encounter Source Date/Time Date/Time Type Type Clinicians Facility Department ID 2022-01-28 Outpatient Irineo [facility] [id number] [facility] 14:56:11 Jamie [facility] 2022-01-16 Outpatient [facility] [id number] Common 09:09:05 [facility] 2020-10-01 Inpatient Irineo [facility] DAYS [id number] [facility] 14:00:00 Jamie [facility] 2022-01-28 2022-01-28 Outpatient EL Irineo [facility] NUC [id number]- [facility] 09:56:00 09:56:00 Jamie [id number] [facility] are [facility] [place] 2022-01-27 2022-01-27 Outpatient Irineo [facility] [id number] - [facility] 10:30:00 10:30:00 Jamie [id number] [facility] are [facility] 2022-01-13 2022-01-13 Outpatient Irineo [facility] [id number] - [facility] 18:17:00 18:17:00 Jamie [id number] [facility] 2021-02-13 2021-02-13 Outpatient GUSUday, [facility] [id number] [place] 00:00:00 00:00:00 EMILY [address] 2021-01-23 2021-01-23 Outpatient [facility] [id number] [place] 00:00:00 00:00:[address] 2020-09-19 2020-09-19 Emergency DARREL [facility] [id number] [place] 00:00:00 00:00:[address] Results Test Description Test Time Test Comments Results Result [facility] e Comments - NM MYOCRD SPECT 2022-01-28 [facility] 1955 Sex: F Patient Name: MARIA LUISA MCCLAIN Unit No: [id number] EXAMS: CPT CODE: [id number] NM MYOCRD SPECT R/S MULT [id number] Exercise treadmill nuclear stress test Date: 01/28/2022 Indication: CAD, dyspnea PROCEDURE: The patient was brought to the stress lab in the resting and fasting state. Informed consent was obtained. Patient was infused 9.5 mCi of Cardiolite intravenously. Resting SPECT images were obtained in 3 standard planes. The patient was then exercised according to Billy protocol for 4 minutes and 36 seconds achieving a work level of 7 METs. The patient's resting heart rate of 64 bpm howard to a maximal heart rate of 114 bpm which represents 75% of the maximal age-predicted heart rate. Within next 30 seconds patient was given 29.8 mCi of Cardiolite intravenously. All electrocardiogram were reviewed by supervising physician Dr. Ingram. Stress SPECT images were then obtained in 3 standard planes. FINDINGS: Myocardial perfusion imaging demonstrate normal radiotracer uptake in the LV myocardium, without any evidence of infarct or ischemia. Gated ejection fraction was normal at greater than 70 %. CONCLUSIONS: 1. Negative exercise treadmill nuclear stress test. 2. Normal derived gated ejection fraction at greater than 70 %. at 1452 Reported and signed by: Gilberto Ingram M.D. CC: Jamie Cabello MD Technologist: [place] (N) [facility] Dt/Tm: 01/28/2022 (1452) by:[facility] Printed Date/Time: 01/28/2022 (2066) Name: JOHNYMARIA LUISA NICHOLS [facility] Phys: Jamie Dominguez MD [address] : 1955 Age: 66 Sex: F [place] [address] Loc: P.NUC Exam Date: 01/28/2022 Status: REG CLI PH: FAX: PAGE 1 Signed Report BASIC METABOLIC PANEL 2020-10-02 06:28:00 Test Item [...] DL Cholesterol<1 00mg/dL : Desirable LDL -C [id number] 0-159mg /dL: Borderline High Risk LDL-C [id number] 0-189mg /dL: High risk LDL-C concentration H DL-LDL Cholesterol is affected by a n umber of factors such as smoking, age an d sex.~~~~~~~~~~~ ~~~~~~~ ~~~~~~~~~~~~~~~ ~~~~~~~ ~~~~~~~~~~~~~~~ ~~~~~ CBC W/AUTO [id number] 06:07:00 Test Item Value Reference Range Interpretation [...] 0.01 x10 3/uL 0.0-0.20 N COAGULATION TIME [id number] 15:16:00 Test Item Value Reference Range Interpretation Comments COAGULATION TIME ACTIVATED (test 483 SECONDS 74-137 H code = ACT) BASIC METABOLIC [id number] 13:55:00 Test Item Value Reference Range Interpretation [...] code 9.5 mg/dL 8.8-10.2 N = CA) [id number] 13:55:00 Test Item Value Reference Range Interpretation Comments MAGNESIUM (test code = MAG) 2.2 mg/dL 1.4-2.6 N PROTHROMBIN [id number] 13:44:00 Test Item Value Reference Range Interpretation [...] 2.5-3.5recurren t systemic emboli sm. THROMBOPLASTIN TIME [id number] 13:44:00 Test Item Value Reference Range Interpretation Comments THROMBOPLASTIN TIME 33.7 SECONDS 23.8-34.8 N INTERPRE TATIVE PARTIAL (test code = DATA: erapeutic PTT) range: Unfractionated heparin:55 - 80 seconds Argatroban:1.5 to 3 times the basel ine PTT CBC W/AUTO [id number] 13:35:00 Test Item Value Reference Range Interpretation [...]
--- NOTE | 2022-04-05 02:21 | EDPHYS ---
Physician Documentation [facility] Name: Diane Kitchen Age: 66 yrs Sex: Female : 1955 Arrival Date: 04/04/2022 Time: 23:43 Bed 14 Private MD: ED Physician Ozzie Dubois HPI: 04/04 23:53 This 66 yrs old Female presents to ER via Ambulatory with complaints of Cough, ms3 Headache, Sore Throat. 23:53 The patient or guardian reports cough, that is intermittent. Onset: The ms3 symptoms/episode began/occurred 1 week(s) ago. Severity of symptoms: At their worst the symptoms were moderate, in the emergency department the symptoms are unchanged. Modifying factors: The symptoms are alleviated by nothing, the symptoms are aggravated by nothing. Associated signs and symptoms: Pertinent positives: sore throat, Pertinent negatives: chest pain, fever, nausea, vomiting. Historical: - Allergies: 23:51 No Known Allergies; tw5 - PMHx: 23:51 Diverticulitis; Hypertension; Myocardial infarction; tw5 - Immunization history:: Flu vaccine is up to date. - Social history:: Smoking status: Patient denies any tobacco usage or history of. ROS: 23:53 Neck: Negative for injury, pain, and swelling, Cardiovascular: Negative for chest pain, ms3 and palpitations. Skin: Negative for injury, rash, and discoloration. 23:53 Constitutional: Positive for body aches, chills. 23:53 ENT: Positive for sore throat. 23:53 Respiratory: Positive for cough. 23:53 All other systems are negative. Exam: 23:53 Constitutional: This is a well developed, well nourished patient who is awake, alert, ms3 and in no acute distress. Head/Face: Normocephalic, atraumatic. Eyes: Pupils equal round and reactive to light, extra-ocular motions intact. Lids and lashes normal. Conjunctiva and sclera are non-icteric and not injected. Periorbital areas with no swelling, redness, or edema. Neck: Trachea midline, no cervical lymphadenopathy. Supple, full range of motion without nuchal rigidity, or vertebral point tenderness. No Meningismus. Chest/axilla: Normal chest wall appearance and motion. Nontender with no deformity. Cardiovascular: Regular rate and rhythm with a normal S1 and S2. No gallops, murmurs, or rubs. Normal PMI, no JVD. No pulse deficits. Respiratory: Lungs have equal breath sounds bilaterally, clear to auscultation and percussion. No rales, rhonchi or wheezes noted. No increased work of breathing, no retractions or nasal flaring. Abdomen/GI: Soft, non-tender, with normal bowel sounds. No distension or tympany. No guarding or rebound. No evidence of tenderness throughout. Skin: Warm, dry with normal turgor. Normal color with no rashes, no lesions, and no evidence of cellulitis. Psych: Awake, alert, with orientation to person, place and time. Behavior, mood, and affect are within normal limits. Vital Signs: 23:49 BP 156 / 77; Pulse 88; Resp 18; Temp 98.3(O); Pulse Ox 94% on R/A; Weight 79.38 kg; tw5 Height 4 ft. 11 in. (149.86 cm); Pain 6/10; 04/05 01:07 BP 142 / 69; Pulse 78; Resp 16; Pulse Ox 98% on R/A; jb4 02:00 BP 144 / 76; Pulse 78; Resp 16; Pulse Ox 98% on R/A; jb4 04/04 23:49 Body Mass Index 35.35 (79.38 kg, 149.86 cm) tw5 MDM: 04/04 23:49 Patient medically screened. ms3 23:53 Differential Diagnosis: Influenza Upper Respiratory Infection Pneumonia. ms3 04/05 04:59 Data reviewed: vital signs, nurses notes, lab test result(s), radiologic studies, plain ms3 films. Counseling: I had a detailed discussion with the patient and/or guardian regarding: the historical points, exam findings, and any diagnostic results supporting the discharge/admit diagnosis, lab results, radiology results, the need for outpatient follow up, to return to the emergency department if symptoms worsen or persist or if there are any questions or concerns that arise at home. 04/04 23:53 Order name: Flu; Complete Time: 02:12 ms3 04/04 23:53 Order name: COVID-19 SARS RT PCR (Document "Date of Onset" if Symptomatic); Complete ms3 Time: 02:12 05/13 23:53 Order name: Strep; Complete Time: 02:12 ms3 04/04 23:53 Order name: CXR XRAY ms3 04/05 01:26 Order name: Throat Culture EDMS Administered Medications: No medications were administered Disposition Summary: 04/05/22 02:20 Discharge Ordered Location: Home ms3 Condition: Stable ms3 Diagnosis - Cough ms3 - sore throat ms3 Followup: ms3 - With: Private Physician - When: 2 - 3 days - Reason: Recheck today's complaints Discharge Instructions: - Discharge Summary Sheet ms3 - Cough, Adult, [id number] ms3 Forms: - Medication Reconciliation Form ms3 - Thank You Letter ms3 - Antibiotic Education ms3 - Prescription Opioid Use ms3 Prescriptions: - Tessalon Perles 100 mg Oral Capsule - take 1 capsule by ORAL route every 8 hours As needed; 15 capsule; Refills: 0, ms3 Product Selection Permitted Signatures: Dispatcher [employer] EDMS Ozzie Dubois DO DO ms3 Bailey Moore tw5
--- NOTE | 2022-04-05 02:21 | ER ---
Nurse's Notes [facility] Name: Diane Kitchen Age: 66 yrs Sex: Female : 1955 Arrival Date: 04/04/2022 Time: 23:43 Bed 14 Private MD: Diagnosis: Cough;sore throat Presentation: 04/04 23:49 Chief complaint: Patient states: "I have had a cough, sore throat and body aches for tw5 the past week. My throat is just killing me though.". Coronavirus screen: Vaccine status: Patient reports receiving the 2nd dose of the covid vaccine. Spreadknowledge. Ebola Screen: Patient negative for fever greater than or equal to 101.5 degrees Fahrenheit, and additional compatible Ebola Virus Disease symptoms Patient denies exposure to infectious person. Patient denies travel to an Ebola-affected area in the 21 days before illness onset. Initial Sepsis Screen: Does the patient meet any 2 criteria? HR > 90 bpm. Does the patient have a suspected source of infection? Yes: Productive cough/pneumonia. Risk Assessment: Do you want to hurt yourself or someone else? Patient reports no desire to harm self or others. Onset of symptoms is unknown. 23:49 Method Of Arrival: Ambulatory tw5 23:49 Acuity: JYOTI 3 tw5 Triage Assessment: 23:51 Headache History: Denies prior headaches. General: Appears in no apparent distress. tw5 Behavior is calm, cooperative, appropriate for age. Pain: Pain currently is 6 out of 10 on a pain scale. Pain began one week ago Also complains of no other associated symptoms. Neuro: Level of Consciousness is awake, alert, obeys commands, Oriented to person, place, time, situation. Historical: - Allergies: 23:51 No Known Allergies; tw5 - PMHx: 23:51 Diverticulitis; Hypertension; Myocardial infarction; tw5 - Immunization history:: Flu vaccine is up to date. - Social history:: Smoking status: Patient denies any tobacco usage or history of. Screenin/14 00:00 Abuse screen: Denies threats or abuse. Nutritional screening: No deficits noted. jb4 Tuberculosis screening: No symptoms or risk factors identified. Fall Risk None identified. Assessment: 00:00 General: Appears in no apparent distress. uncomfortable, Behavior is calm, cooperative, jb4 appropriate for age. Pain: Complains of pain in neck Pain does not radiate. Pain currently is 6 out of 10 on a pain scale. Neuro: Level of Consciousness is awake, alert, obeys commands, Oriented to person, place, time, situation. Cardiovascular: Patient's skin is warm and dry. Respiratory: Airway is patent Respiratory effort is even, unlabored, Respiratory pattern is regular, symmetrical. GI: No signs and/or symptoms were reported involving the gastrointestinal system. : No signs and/or symptoms were reported regarding the genitourinary system. EENT: No signs and/or symptoms were reported regarding the EENT system. Derm: Skin is intact, Skin is pink, warm \\T\\ dry. Musculoskeletal: Circulation, motion, and sensation intact. Range of motion: intact in all extremities. 01:07 Reassessment: Patient appears in no apparent distress at this time. Patient and/or jb4 family updated on plan of care and expected duration. Pain level reassessed. Patient is alert, oriented x 3, equal unlabored respirations, skin warm/dry/pink. 02:05 Reassessment: Patient appears in no apparent distress at this time. Patient and/or jb4 family updated on plan of care and expected duration. Pain level reassessed. Patient is alert, oriented x 3, equal unlabored respirations, skin warm/dry/pink. Vital Signs: 04/04 23:49 BP 156 / 77; Pulse 88; Resp 18; Temp 98.3(O); Pulse Ox 94% on R/A; Weight 79.38 kg; tw5 Height 4 ft. 11 in. (149.86 cm); Pain 6/10; 04/05 01:07 BP 142 / 69; Pulse 78; Resp 16; Pulse Ox 98% on R/A; jb4 02:00 BP 144 / 76; Pulse 78; Resp 16; Pulse Ox 98% on R/A; jb4 04/04 23:49 Body Mass Index 35.35 (79.38 kg, 149.86 cm) tw5 ED Course: 04/04 23:43 Patient arrived in ED. bp1 23:44 Ozzie Dubois DO is Attending Physician. ms3 23:51 Triage completed. tw5 23:51 Arm band placed on left wrist. Patient placed in an exam room, on a stretcher. tw5 23:55 Hugo Moore, RN is Primary Nurse. jb4 04/05 00:00 Patient has correct armband on for positive identification. Bed in low position. Call jb4 light in reach. Side rails up X 1. Client placed on continuous cardiac and pulse oximetry monitoring. NIBP monitoring applied. 00:14 Strep Sent. jb4 00:14 COVID-19 SARS RT PCR (Document "Date of Onset" if Symptomatic) Sent. jb4 00:14 Flu Sent. jb4 00:22 CXR XRAY In Process Unspecified. EDMS 02:33 No provider procedures requiring assistance completed. Patient did not have IV access jb4 during this emergency room visit. Administered Medications: No medications were administered Medication: 02:05 VIS not applicable for this client. jb4 Outcome: 02:20 Discharge ordered by . ms3 02:33 Discharged to home ambulatory. jb4 02:33 Condition: stable 02:33 Discharge instructions given to patient, Instructed on discharge instructions, follow up and referral plans. medication usage, Demonstrated understanding of instructions, follow-up care, medications, Prescriptions given X 1. 02:33 Patient left the ED. jb4 Signatures: Dispatcher [employer] EDMD Hugo Moore, RN RN jb4 Ozzie Dubois DO DO ms3 Freda Morrissey Tiffany tw5
--- NOTE | 2022-04-05 16:00 | RAD REPORT ---
EXAM DESCRIPTION: RAD - Chest Single View - 04/05/2022 12:20 am CLINICAL HISTORY: 66 years, Female, COUGH COMPARISON: 12/25/2021 FINDINGS: Single view of the chest was obtained portable. Prior films were compared. The cardiomed iastinal silhouette demonstrate to be unremarkable. The heart is not enlarged. The thoracic aorta is unremarkable. The pulmonary vasculature is normal distribution. Costophrenic angles are sharp. No a reas of consolidation or masses are seen. Minimal degenerative changes bilateral glenohumeral joints The rest of the soft tissue and bony structures demonstrate to be unremarkable. IMPRESSION: NO ACUTE CARDIOPULMONARY DISEASE SEEN. Electronically signed by: Juan R Le MD 04/05/2022 12:54 AM CDT Due to temporary technical issues with the PACS/Fluency reporting system, reports are being signed b y the in house radiologists without review as a courtesy to insure prompt reporting. The interpreting radiologist is fully responsible for the content of the report.
[2022-04-05 16:44] VITALS: TEMP 98.3
[2022-04-05 16:46] VITALS: O2SAT 98
[2022-04-05 16:48] VITALS: BP 144/76
== END 2022-04-05 02:33 | disposition home or self-care (01) ==
LOC: ER 23:40
DX: R05.9 Cough, unspecified (principal); J02.9 Acute pharyngitis, unspecified; I10 Essential (primary) hypertension; I25.2 Old myocardial infarction; Z20.822 Contact with and (suspected) exposure to COVID-19
CPT/HCPCS: 87070; 87081; 87804 ×2; 71045; 99283; U0003

== ENCOUNTER 2022-08-09 01:05 | Emergency (ER) | payer OTHER ==
--- OUTSIDE RECORDS SUMMARY | 2022-08-09 01:09 | XMS REPORT | Continuity of Care Document ---
:1955 Author Organization [facility] t Address [address] [place] [address] Care Team Providers Name Role Phone Asked, No Pcp Primary Care Physician Unavailable Jamie Cabello Attending Clinician Unavailable EMILY VELAZQUEZ Attending Clinician Unavailable DARREL VIEIRA Attending Clinician Unavailable Jamie Cabello Admitting Clinician Unavailable Payers Payer Name Policy Type Policy Number Effective Date Expiration Date S ource Problems This patient has no known problems. Allergies, Adverse Reactions, Alerts Allergy Allergy Status Severity Reaction(s) Onset Inactive Treating Comm ents Source Name Type Date Date Clinician No Known DA Active U 2019-11 [facility] 12[facility]01 [place] [facility] 00:00: [facility] 00 [facility] No Known DA Active U 2019-11 [facility] All[facility]ie 12-01 [place] 00:00: [facility] 00 [facility] Social History Social Habit Start Date Stop Date Quantity Comments Source History of Current smoker [facility] Tobacco use and 2020-09-19 2020-09-19 Former smokeless [facility] exposure 00:00:00 00:00:00 tobacco user Hospital Sex Assigned At [birth year] [facility] 00:00:00 00:00:00 Hospital Smoking Status Start Date Stop Date Source [facility] 2020-09-19 [facility]:00[facility]00 [facility] Ordered Filled Start Stop Current Ordering Indication Dosage Frequency Signature Comments Components Source Medication Medication Date Date Medication? Clinician (SIG) Name Name No known 2019-11 No No known Metho di medications 0-[address] 19:32: [facility] l Immunizations Ordered Immunization Filled Immunization Date Status Commen ts Source Name Name PFIZER COVID-19 MRNA 2021-02-13 Completed [facility] VACCINATION 00:00:00 Hospital PFIZER COVID-19 MRNA 2021-01-23 Completed [facility] VACCINATION 00:00:00 Hospital Procedures This patient has no known procedures. Plan of Care Planned Activity Planned Date Details Comments Source Future Scheduled 2022-07-26 65+ [facility]AL [facility] 16:07:25 VACCINE (1 - PCV) [code = 65+ PNEUMOCOCCAL VACCINE (1 - PCV)] Future Scheduled 2022-07-26 COVID-19 VACCINE (3 - [facility] Test 16:07:25 Booster for Pfizer series) [code = COVID-19 VACCINE (3 - Booster for Pfizer series)] Future Scheduled 2022-07-26 INFLUENZA VACCINE [facility] Test 16:07:25 [code = INFLUENZA VACCINE] Future Scheduled 2022-07-26 HEPATITIS B VACCINES [facility] Test 16:07:25 (1 of 3 - 3-dose series) [code = HEPATITIS B VACCINES (1 of 3 - 3-dose series)] Future Scheduled 2022-07-26 BREAST CANCER [facility] Test 16:07:25 SCREENING [code = BREAST CANCER SCREENING] Future Scheduled 2022-07-26 COLONOSCOPY SCREENING [facility] Test 16:07:25 [code = COLONOSCOPY SCREENING] Future Scheduled 2022-07-26 SHINGLES VACCINES (1 [facility] Test 16:07:25 of 2) [code = SHINGLES VACCINES (1 of 2)] Future Scheduled 2022-07-26 BREAST CANCER [facility] Test 13:05:09 SCREENING [code = BREAST CANCER SCREENING] Future Scheduled 2022-07-26 COLONOSCOPY SCREENING [facility] Test 13:05:09 [code = COLONOSCOPY SCREENING] Future Scheduled 2022-07-26 SHINGLES VACCINES (1 [facility] Test 13:05:09 of 2) [code = SHINGLES VACCINES (1 of 2)] Future Scheduled 2022-07-26 65+ [facility] Test 13:05:09 VACCINE (1 - PCV) [code = 65+ PNEUMOCOCCAL VACCINE (1 - PCV)] Future Scheduled 2022-07-26 INFLUENZA VACCINE [facility] Test 13:05:09 [code = INFLUENZA VACCINE] Future Scheduled 2022-07-26 HEPATITIS B VACCINES [facility] Test 13:05:09 (1 of 3 - 3-dose series) [code = HEPATITIS B VACCINES (1 of 3 - 3-dose series)] Future Scheduled 2022-07-26 COVID-19 VACCINE (#1) [facility] Test 13:05:09 [code = COVID-19 VACCINE (#1)] Future Scheduled 2022-07-26 Hepatitis C screening [facility] Test 13:05:09 (procedure) [code = [id number]] Encounters Start End Encounter Admission Attending Care Care Encounter Source Date/Time Date/Time Type Type Clinicians Facility Department ID 2022-01-[address] [facility] [id number] [facility] 09:09:05 [facility] 2020-10-01 Inpatient Conchitasachinbhupendra [facility] [id number] [facility] 14:00:00 Jamie 92 [facility] 2022-01-28 2022-01-28 [id number] [facility] 09:56:00 09:56:00 Jamie 02 [facility] 2021-02-13 2021-02-13 Outpatient [facility] [id number] [place] 00:00:00 00:00:00 EMILY [address] 2021-01-23 2021-01-23 Outpatient [facility] [id number] 816 [place] 00:00:00 00:00:[address] 2020-09-19 2020-09-19 Emergency ISHA DARREL [facility] [id number] [place] 00:00:00 00:00:[address] Results Test Description Test Time Test Comments Results Result [facility] e Comments - NM MYOCRD SPECT 2022-01-28 R/S MULT 14:52:00 [facility] : 1955 Sex: F Patient Name: MARIA LUISA MCCLAIN Unit No: [id number] EXAMS: CPT CODE: [id number] NM MYOCRD SPECT R/S MULT [id number] Exercise treadmill nuclear stress test Date: 01/28/2022 [...] fraction at greater than 70 %. at 7078 Reported and signed by: Gilberto Ingram M.D. CC: Jamie Cabello MD Technologist: Aspen Chow (N) Trscr Dt/Tm: 01/28/2022 (7589) by:[facility] Printed Date/Time: 01/28/2022 (3114) Name: MARIA LUISA MCCLAIN [facility] Phys: Jamie Dominguez MD [id number] : 1955 Age: 66 Sex: [place] [id number] Loc: P.NUC Exam Date: 01/28/2022 Status: REG [...] 100 -129 mg/dLBorde rline High: 130 - 159 mg/dLHigh: 160 - 189 mg/dLVery High: = or > 190 mg/dL CORONARY RISK FACTOR 5.32 CHOL/H DL RISK MALE: (test code = RISK) 1/2 AVG 3 .43 FEMALE: 1/2 AVG 3.27 AV G 4.97 AVG 4.44 2X AVG 9.55 2X AVG 7.05 3X AVG 23.39 3X AVG 11.04~~~~~~~~~~ ~~~~~~~ ~~~~~~~~~~~~~~~ ~~~~~~~ ~~~~~~~~~~~~~~~ ~~~~~~[facility] maxine Education (NCEP ) Guidelines:~~~~ ~~~~~~~ ~~~~~~~~~~~~~~~ ~~~~~~~ ~~~~~~~~~~~~~~~ ~~~~~~~ ~~~~~ HDL Cholesterol<4 0mg/dL: HDL Cholesterol (Major risk factor for CHD)>60mg/dL: H DL Cholesterol (Ne gative risk factor for CHD)40-59mg/dL: Borderline Risk LDL Cholesterol<1 00mg/dL : Desirable LDL -C [id number] 0-159mg /dL: Borderline High Risk LDL-C [id number] 0-189mg /dL: High risk LDL-C concentration H DL-LDL Cholesterol is affected by a n umber of factors such as smoking, age an d sex.~~~~~~~~~~~ ~~~~~~~ ~~~~~~~~~~~~~~~ ~~~~~~~ ~~~~~~~~~~~~~~~ ~~~~~ CBC W/AUTO [id number] 06:07:00 Test Item Value Reference Range Interpretation [...] 0.01 x10 3/uL 0.0-0.20 N COAGULATION TIME [id number] 15:16:00 Test Item Value Reference Range Interpretation Comments COAGULATION TIME ACTIVATED (test 483 SECONDS 74-137 H code = ACT) BASIC METABOLIC [id number] 13:55:00 Test Item Value Reference Range Interpretation [...] code 9.5 mg/dL 8.8-10.2 N = CA) [id number] 13:55:00 Test Item Value Reference Range Interpretation Comments MAGNESIUM (test code = MAG) 2.2 mg/dL 1.4-2.6 N PROTHROMBIN [id number] 13:44:00 Test Item Value Reference Range Interpretation Comments PROTHROMBIN TIME 10.6 SECONDS 10.3-12.9 N PATIENT (test code = PTP) INTERNATIONAL 0.94 INR UNIT 0.9-1.11 N The INR is us eful only NORMAL RATIO (test for monit oring code = INR) anticoagulant therapy.It may be unreliable in t he initial phase o f antigoagulation and in unstable patien ts. Indication for Anticoagulation Recommended INR 1. Prevention of v enous thomboembolism 2.0-3.0in high- risk patients; treat ment of venousthrombosi s and pulmonary embol ism aftera course o f heparin; preven tion of systemicembolis m in a variety of cond itions, including atria l fibrillation an d prothetic tissu e heart valves, 2. Pros thetic mechanical hear t valves; 2.5-3.5recurren t systemic emboli sm. THROMBOPLASTIN TIME [id number] 13:44:00 Test Item Value Reference Range Interpretation Comments THROMBOPLASTIN TIME 33.7 SECONDS 23.8-34.8 N INTERPRE TATIVE PARTIAL (test code = DATA: erapeutic PTT) range: Unfractionated heparin:55 - 80 seconds Argatroban:1.5 to 3 times the basel ine PTT CBC W/AUTO [id number] 13:35:00 Test Item Value Reference Range Interpretation [...]
[2022-08-09] MEDS ORDERED: FENTANYL CITR 100 MCG/2 ML ONE (03:17)
[2022-08-09] MEDS ORDERED: CIPROFLOXACIN 400mg IV 400 MG/200 ML BAG IV ONE (03:18)
[2022-08-09] MEDS ORDERED: CEFTRIAXONE 2000 MG/VIAL ONE (03:18)
[2022-08-09] MEDS ORDERED: NA CHLORIDE 0.9% 0 ML ONE (03:18)
[2022-08-09] MEDS ORDERED: METRONIDAZOLE 500mg IVPB 500 MG/100 ML BAG IV ONE (03:18)
[2022-08-09] MEDS ORDERED: NA CHLORIDE 0.9% 1,000 ML ONE (03:18)
[2022-08-09 03:47] LABS: Absolute Lymphocytes (CBC) 1.8 K/uL (0.7-4.9); Hematocrit 37.9 % (36.0-45.0); Lymphocytes % 17.4 % (15.3-44.8); MCV 85.5 fL (80-100); RBC Red Blood Cell Count 4.43 M/uL (3.86-4.86)
[2022-08-09 04:48] LABS: Albumin 2.7 g/dL (3.4-5.0); Bilirubin Total 0.1 mg/dL (0.2-1.0); Protein, Total 5.1 g/dL (6.4-8.2)
[2022-08-09] MEDS ORDERED: POTASSIUM 25 MEQ EFFERV TAB ONE (05:37)
[2022-08-09] MEDS ORDERED: NA CHLORIDE 0.9% 100 ML ONE (05:38)
[2022-08-09] MEDS ORDERED: CALCIUM GLUCONATE 1 GM IVPB 1 GM/50 ML BAG IV ONE (05:38)
[2022-08-09 05:42] LABS: Urine Blood Negative (Negative); Urine Glucose Negative (Negative); Urine Protein Negative (Negative); Urine Specific Gravity 1.025 (1.005-1.030)
[2022-08-09 06:04] LABS: Urine Bacteria <20 /HPF (<20); Urine Mucus Slight /HPF (None Seen); Urine RBC <5 /HPF (None Seen)
[2022-08-09 06:05] LABS: SARS-CoV-2 Antigen Rapid Res Positive (Negative)
[2022-08-09] MEDS ORDERED: ONDANSETRON 4 MG/2 ML VIAL ONE (06:49)
--- NOTE | 2022-08-09 07:43 | ER ---
Nurse's Notes [facility] Name: Diane Kitchen Age: 66 yrs Sex: Female : 1955 Arrival Date: 08/09/2022 Time: 01:07 Bed 19 Private MD: Diagnosis: Diverticulitis of large intestine without perforation or abscess without bleeding;Abdominal pain, Generalized;Hypokalemia;Hypocalcemia;Coronavirus infection, unspecified;SARS-associated coronavirus as the cause of diseases classified elsewhere Presentation: 08/09 01:41 Chief complaint: Patient states: "I have a real bad stomach ache and last time I came vc1 in they told me I have diverticulitis, I don't know if that is what it is but it hurts real bad.". Coronavirus screen: Vaccine status: Patient reports receiving the 2nd dose of the covid vaccine. Booster, Pfizer nausea, At this time, the client does not indicate any symptoms associated with coronavirus-19. Ebola Screen: No symptoms or risks identified at this time. Risk Assessment: Do you want to hurt yourself or someone else? Patient reports no desire to harm self or others. Onset of symptoms was August 08, 2022 at 22:00. 01:41 Method Of Arrival: Ambulatory vc1 01:41 Acuity: JYOTI 3 vc1 01:50 Initial Sepsis Screen: Does the patient meet any 2 criteria? No. Patient's initial vc1 sepsis screen is negative. Does the patient have a suspected source of infection? Yes: Acute abdominal pain. Triage Assessment: 01:46 General: Appears in no apparent distress. uncomfortable, ill, Behavior is cooperative. vc1 Pain: Complains of pain in umbilical area and suprapubic area Pain does not radiate. Pain currently is 10 out of 10 on a pain scale. Neuro: No deficits noted. Cardiovascular: No deficits noted. Respiratory: Airway is patent Respiratory effort is even, unlabored, Respiratory pattern is regular, symmetrical. GI: Abdomen is flat, non-distended, Reports lower abdominal pain, epigastric pain, normal bowel habits. : No deficits noted. Derm: No deficits noted. Historical: - Home Meds: 01:43 aspirin 81 mg Oral tab [Active]; atorvastatin 80 mg Oral tab 1 tab once daily [Active]; vc1 citalopram 20 mg tab 1 tab once daily [Active]; metoprolol tartrate 25 mg Oral tab [Active]; pravastatin 40 mg Oral tab [Active]; Breo Ellipta 100-25 mcg/dose inhalation dsdv 1 puff once daily [Active]; - PMHx: 01:43 Diverticulitis; Hypertension; Myocardial infarction; vc1 - PSHx: 01:43 Cardiac Stents; vc1 - Immunization history:: Adult Immunizations up to date, Client reports receiving the 2nd dose of the Covid vaccine. - Social history:: Smoking status: Patient/guardian denies using tobacco, but has a distant history of tobacco abuse. - Family history:: not pertinent. Screenin:48 Abuse screen: Denies threats or abuse. Nutritional screening: No deficits noted. vc1 Tuberculosis screening: No symptoms or risk factors identified. Fall Risk None identified. Assessment: 07:23 General: Appears in no apparent distress. comfortable, Behavior is calm, cooperative. tp1 Pain: Complains of pain in umbilical area. Pain: Pain does not radiate. Pain currently is 4 out of 10 on a pain scale. Neuro: Level of Consciousness is awake, alert, obeys commands, Oriented to person, place, time, situation. Cardiovascular: Capillary refill < 3 seconds in bilateral fingers Patient's skin is warm and dry. Respiratory: Airway is patent Respiratory effort is even, unlabored. GI: Abdomen is round non-distended, Abd is soft and non tender X 4 quads. Musculoskeletal: Circulation, motion, and sensation intact. 07:23 General: CO itching in the right hand, no redness or swelling noted, provider notified tp1 of itching and pain . 07:35 Reassessment: provider at bedside. tp1 07:49 Reassessment: discharge pending bebtelovimab administration. tp1 08:30 Reassessment: Patient appears in no apparent distress at this time. No changes from tp1 previously documented assessment. Patient and/or family updated on plan of care and expected duration. Pain level reassessed. Patient is alert, oriented x 3, equal unlabored respirations, skin warm/dry/pink. Vital Signs: 01:41 Weight 65.77 kg; Height 4 ft. 11 in. (149.86 cm); Pain 10/10; vc1 01:48 BP 158 / 72; Pulse 75; Resp 20; Temp 98.0; Pulse Ox 97% ; vc1 08:17 BP 155 / 63; Pulse 72; Resp 16; Pulse Ox 98% on R/A; tp1 09:11 BP 146 / 71; Pulse 76; Resp 16; Pulse Ox 98% on R/A; tp1 09:30 BP 140 / 79; Pulse 72; Resp 16; Pulse Ox 98% on R/A; tp1 01:41 Body Mass Index 29.29 (65.77 kg, 149.86 cm) vc1 ED Course: 01:07 Patient arrived in ED. bp1 01:43 Triage completed. vc1 01:47 Arm band placed on right wrist. vc1 01:51 Patient has correct armband on for positive identification. vc1 02:48 Bennett Torres MD is Attending Physician. carlos 03:03 Kevan Vee, RN is Primary Nurse. ja4 04:49 Notified ED physician of a critical lab result(s). calcium 6.6. tw5 04:56 Inserted saline lock: 20 gauge in left antecubital area, using aseptic technique. vc1 05:20 CT Abd/Pelvis - IV Contrast Only In Process Unspecified. EDMS 05:43 SARS RAPID Sent. ja4 05:43 Urine Microscopic Only Sent. ja4 07:42 Roland Wallace MD is Referral Physician. carlos 08:23 Primary Nurse role handed off by Kevan Vee, RN tp1 08:23 Bailey Benitez, JEFF is Primary Nurse. tp1 09:42 No provider procedures requiring assistance completed. intact, bleeding controlled, No tp1 redness/swelling at site. Pressure dressing applied. Administered Medications: 03:31 Drug: NS 0.9% 1000 ml Route: IV; Rate: 1 bolus; Site: right hand; ja4 03:31 Drug: fentaNYL (PF) 50 mcg Route: IVP; Site: right hand; ja4 03:31 Drug: Rocephin (cefTRIAXone) 2 grams Route: IV; Rate: per protocol; Site: right hand; ja4 03:32 Drug: Zofran (Ondansetron) 4 mg Route: IVP; Site: right hand; ja4 04:17 Drug: Flagyl (metroNIDAZOLE) 500 mg Volume: 100 ml; Route: IVPB; Rate: 200 ml/hr; ja4 Infused Over: 30 mins; Site: right hand; 05:35 Drug: Potassium Effervescent Tablet 50 mEq Route: PO; ja4 06:47 Drug: Calcium Gluconate 1 grams Route: IVPB; Infused Over: 20 mins; Site: right hand; ja4 07:08 Drug: Cipro (ciprofloxacin) 400 mg Volume: 200 ml; Route: IVPB; Infused Over: 60 mins; ja4 Site: right hand; 08:50 Drug: Bebtelovimab 175 mg Route: IV; Rate: bolus; Site: right hand; tp1 09:42 Follow up: Response: No adverse reaction tp1 Medication: 01:51 VIS not applicable for this client. vc1 Outcome: 07:43 Discharge ordered by . carlos 09:43 Discharged to home ambulatory, with family. tp1 09:43 Condition: good 09:43 Condition: good 09:43 Discharge instructions given to patient, Instructed on discharge instructions, follow up and referral plans. medication usage, Demonstrated understanding of instructions, follow-up care, medications, Prescriptions given X 4. 09:50 Patient left the ED. tp1 Signatures: Dispatcher [employer] EDMS Bennett Torres MD MD cha Paniauga, Brittany bp1 Wood, Tiffany tw5 Bailey Benitez RN RN tp1 Roxana Hunter RN RN vc1 Kevan Vee RN RN ja4 Corrections: (The following items were deleted from the chart) 07:31 07:23 Musculoskeletal: Circulation, motion, and sensation intact. tp1 tp1 07:32 07:23 General: CO itching in the right hand, no redness or swelling noted, provider tp1 notified. . tp1
--- NOTE | 2022-08-09 07:43 | EDPHYS ---
Physician Documentation [facility] Name: Diane Kitchen Age: 66 yrs Sex: Female : 1955 Arrival Date: 08/09/2022 Time: 01:07 Bed 19 Private MD: ROOPA Physician Bennett Torres HPI: 08/09 05:02 This 66 yrs old Female presents to ER via Ambulatory with complaints of carlos Abdominal Pain. 05:02 The patient presents with abdominal pain. Onset: The symptoms/episode began/occurred 4 carlos day(s) ago. The symptoms do not radiate. Associated signs and symptoms: Pertinent positives: vomiting. The symptoms are described as constant, crampy. Modifying factors: The symptoms are alleviated by nothing, the symptoms are aggravated by nothing. Severity of pain: At its worst the pain was moderate in the emergency department the pain is unchanged. The patient has experienced similar episodes in the past, a few times. Historical: - Home Meds: 01:43 aspirin 81 mg Oral tab [Active]; atorvastatin 80 mg Oral tab 1 tab once daily [Active]; vc1 citalopram 20 mg tab 1 tab once daily [Active]; metoprolol tartrate 25 mg Oral tab [Active]; pravastatin 40 mg Oral tab [Active]; Breo Ellipta 100-25 mcg/dose inhalation dsdv 1 puff once daily [Active]; - PMHx: 01:43 Diverticulitis; Hypertension; Myocardial infarction; vc1 - PSHx: 01:43 Cardiac Stents; vc1 - Immunization history:: Adult Immunizations up to date, Client reports receiving the 2nd dose of the Covid vaccine. - Social history:: Smoking status: Patient/guardian denies using tobacco, but has a distant history of tobacco abuse. - Family history:: not pertinent. ROS: 05:02 Constitutional: Negative for fever, chills, and weight loss, Eyes: Negative for injury, carlos pain, redness, and discharge, ENT: Negative for injury, pain, and discharge, Neck: Negative for injury, pain, and swelling, Cardiovascular: Negative for chest pain, palpitations, and edema, Respiratory: Negative for shortness of breath, cough, wheezing, and pleuritic chest pain, Back: Negative for injury and pain, : Negative for injury, bleeding, discharge, and swelling, MS/Extremity: Negative for injury and deformity, Skin: Negative for injury, rash, and discoloration, Neuro: Negative for headache, weakness, numbness, tingling, and seizure, Psych: Negative for depression, anxiety, suicide ideation, homicidal ideation, and hallucinations, Allergy/Immunology: Negative for hives, rash, and allergies, Endocrine: Negative for neck swelling, polydipsia, polyuria, polyphagia, and marked weight changes, Hematologic/Lymphatic: Negative for swollen nodes, abnormal bleeding, and unusual bruising. 05:02 Abdomen/GI: Positive for abdominal pain, nausea and vomiting, of the umbilical area, right lower quadrant and left lower quadrant. Exam: 05:02 Constitutional: This is a well developed, well nourished patient who is awake, alert, carlos and in no acute distress. Head/Face: Normocephalic, atraumatic. Eyes: Pupils equal round and reactive to light, extra-ocular motions intact. Lids and lashes normal. Conjunctiva and sclera are non-icteric and not injected. Cornea within normal limits. Periorbital areas with no swelling, redness, or edema. ENT: Nares patent. No nasal discharge, no septal abnormalities noted. Tympanic membranes are normal and external auditory canals are clear. Oropharynx with no redness, swelling, or masses, exudates, or evidence of obstruction, uvula midline. Mucous membranes moist. Neck: Trachea midline, no thyromegaly or masses palpated, and no cervical lymphadenopathy. Supple, full range of motion without nuchal rigidity, or vertebral point tenderness. No Meningismus. Chest/axilla: Normal chest wall appearance and motion. Nontender with no deformity. No lesions are appreciated. Cardiovascular: Regular rate and rhythm with a normal S1 and S2. No gallops, murmurs, or rubs. Normal PMI, no JVD. No pulse deficits. Respiratory: Lungs have equal breath sounds bilaterally, clear to auscultation and percussion. No rales, rhonchi or wheezes noted. No increased work of breathing, no retractions or nasal flaring. Back: No spinal tenderness. No costovertebral tenderness. Full range of motion. Female : Normal external genitalia. Skin: Warm, dry with normal turgor. Normal color with no rashes, no lesions, and no evidence of cellulitis. MS/ Extremity: Pulses equal, no cyanosis. Neurovascular intact. Full, normal range of motion. Neuro: Awake and alert, GCS 15, oriented to person, place, time, and situation. Cranial nerves II-XII grossly intact. Motor strength 5/5 in all extremities. Sensory grossly intact. Cerebellar exam normal. Normal gait. Psych: Awake, alert, with orientation to person, place and time. Behavior, mood, and affect are within normal limits. 05:02 Abdomen/GI: Inspection: abdomen appears normal, Bowel sounds: active, Palpation: soft, in all quadrants, Liver: no appreciated palpable abnormalities, Hernia: Vital Signs: 01:41 Weight 65.77 kg; Height 4 ft. 11 in. (149.86 cm); Pain 10/10; vc1 01:48 BP 158 / 72; Pulse 75; Resp 20; Temp 98.0; Pulse Ox 97% ; vc1 08:17 BP 155 / 63; Pulse 72; Resp 16; Pulse Ox 98% on R/A; tp1 09:11 BP 146 / 71; Pulse 76; Resp 16; Pulse Ox 98% on R/A; tp1 09:30 BP 140 / 79; Pulse 72; Resp 16; Pulse Ox 98% on R/A; tp1 01:41 Body Mass Index 29.29 (65.77 kg, 149.86 cm) vc1 MDM: 02:53 Patient medically screened. [facility] 05:05 Differential diagnosis: Cholelithiasis, diverticulitis, gastritis, gastroesophageal carlos reflux disease, non-specific abd pain, pancreatitis, Peptic Ulcer Disease, Pyelonephritis, urinary tract infection. Data reviewed: vital signs, nurses notes, lab test result(s), radiologic studies, CT scan. Data interpreted: monitor car operator: rate is 75 beats/min, rhythm is regular, Pulse oximetry: on room air. Counseling: I had a detailed discussion with the patient and/or guardian regarding: the historical points, exam findings, and any diagnostic results supporting the discharge/admit diagnosis. 08/09 02:53 Order name: CBC with Diff; Complete Time: 03:53 [facility] 08/09 02:53 Order name: CMP; Complete Time: 04:52 [facility] 08/09 02:53 Order name: Lipase; Complete Time: 04:52 [facility] 08/09 02:53 Order name: Urine Microscopic Only; Complete Time: 07:32 [facility] 08/09 02:53 Order name: SARS RAPID; Complete Time: 07:32 carlos 08/09 05:42 Order name: Urine Dipstick-Ancillary; Complete Time: 07:32 EDMS 08/09 02:53 Order name: CT Abd/Pelvis - IV Contrast Only carlos 08/09 02:53 Order name: IV Saline Lock; Complete Time: 08:18 carlos 08/09 02:53 Order name: Labs collected and sent; Complete Time: 08:18 carlos 08/09 03:49 Order name: Misc. Order: Recollect green top; Complete Time: 05:02 vc1 08/09 07:41 Order name: Misc. Order: bebtelovimab; Complete Time: 08:50 carlos Administered Medications: 03:31 Drug: NS 0.9% 1000 ml Route: IV; Rate: 1 bolus; Site: right hand; ja4 03:31 Drug: fentaNYL (PF) 50 mcg Route: IVP; Site: right hand; ja4 03:31 Drug: Rocephin (cefTRIAXone) 2 grams Route: IV; Rate: per protocol; Site: right hand; ja4 03:32 Drug: Zofran (Ondansetron) 4 mg Route: IVP; Site: right hand; ja4 04:17 Drug: Flagyl (metroNIDAZOLE) 500 mg Volume: 100 ml; Route: IVPB; Rate: 200 ml/hr; ja4 Infused Over: 30 mins; Site: right hand; 05:35 Drug: Potassium Effervescent Tablet 50 mEq Route: PO; ja4 06:47 Drug: Calcium Gluconate 1 grams Route: IVPB; Infused Over: 20 mins; Site: right hand; ja4 07:08 Drug: Cipro (ciprofloxacin) 400 mg Volume: 200 ml; Route: IVPB; Infused Over: 60 mins; ja4 Site: right hand; 08:50 Drug: Bebtelovimab 175 mg Route: IV; Rate: bolus; Site: right hand; tp1 09:42 Follow up: Response: No adverse reaction tp1 Disposition Summary: 08/09/22 07:43 Discharge Ordered Location: Home carlos Problem: new carlos Symptoms: have improved carlos Condition: Stable carlos Diagnosis - Diverticulitis of large intestine without perforation or abscess without bleeding carlos - Abdominal pain, Generalized carlos - Hypokalemia carlos - Hypocalcemia carlos - Coronavirus infection, unspecified carlos - SARS-associated coronavirus as the cause of diseases classified elsewhere [facility] Followup: carlos - With: Private Physician - When: 2 - 3 days - Reason: Recheck today's complaints, Continuance of care, Re-evaluation by your physician Followup: carlos - With: Roland Wallace MD - When: 2 - 3 days - Reason: Recheck today's complaints, Re-evaluation by your physician Discharge Instructions: - Discharge Summary Sheet [facility] - Abdominal Pain, Adult [facility] - Diverticulitis [facility] - Abdominal Pain, Adult, [id number] [facility] - COVID-19 [facility] - Things to Know about the COVID-19 Pandemic - [facility] - COVID-19: Quarantine vs. Isolation - [facility] - Prevent the Spread of COVID-19 if You Are Sick - [facility] Forms: - Medication Reconciliation Form [facility] - Thank You Letter [facility] - Antibiotic Education [facility] - Prescription Opioid Use [facility] Prescriptions: - Flagyl 500 mg Oral Tablet - take 1 tablet by ORAL route every 8 hours for 7 days; 21 tablet; Refills: 0, [facility] Product Selection Permitted - Zofran 4 mg Oral Tablet - take 1 tablet by ORAL route every 12 hours As needed; 20 tablet; Refills: 0, [facility] Product Selection Permitted - dicyclomine 20 mg Oral Tablet - take 1 tablet by ORAL route 4 times per day; 28 tablet; Refills: 0, Product [facility] Selection Permitted - Cipro 250 mg Oral Tablet - take 1 tablet by ORAL route every 12 hours; 14 tablet; Refills: 0, Product [facility] Selection Permitted Signatures: Dispatcher [employer] Bennett Dye MD MD cha Williams, Irene, RN Jaron Ernst, WAREHOUSE SELECTOR-C WAREHOUSE SELECTOR-Cla1 Bailey Benitez RN RN tp1 Roxana Hunter RN RN vc1 Kevan Vee RN RN ja4
[2022-08-09] MEDS ORDERED: BEBTELOVIMAB 175 MG/2 ML VIAL IV ONE (08:24)
--- NOTE | 2022-08-09 20:42 | RAD REPORT ---
EXAM DESCRIPTION: CT - Abdomen Pelvis W Contrast - 08/09/2022 5:18 am CLINICAL HISTORY: 66 years Female Abdominal pain, acute, nonlocalized TECHNIQUE: Axial CT imaging of the abdomen and pelvis was performed following the administration of intravenous contrast.. Oral contrast was not administered. Sagittal and coronal reconstructed image s were then performed. The CT study is performed according to ALARA (as low as reasonably achievabl e) or ALARA/IMAGE GENTLY, with automatic adjustment of mA and/or kV according to patient size. Performed on: 08/09/2022 at 5:14 AM. COMPARISON: CT abdomen and pelvis with contrast performed on 11/04/2021 FINDINGS: Lung bases: The lung bases are clear. There are mild coronary artery calcifications. The h eart is normal in size as visualized. Liver: The liver is normal in size and configuration. No focal hepatic abnormalities are identified. There is diffusely decreased attenuation of the liver which can be seen with fatty infiltration. The hepatic and portal veins are patent. Spleen: The spleen is normal is size, configuration and attenuation. Gallbladder and bile duct: The gallbladder is well-distended. There is a tiny gallstone in the depe ndent lumen of the gallbladder. There is no biliary ductal dilatation. Pancreas: The pancreas is grossly normal in size and configuration. Adrenal Glands: The adrenal glands are normal in size and configuration. Kidneys: The kidneys are normal in size and configuration. There is no evidence of hydronephrosis. Th ere is no evidence of nephrolithiasis. There is an approximately 2.9 x 2.0 cm cyst arising from the l ower pole of the left kidney. Stomach: The stomach is grossly normal. There is no definite hiatal hernia. Bowel: The bowel gas pattern is non specific and non obstructive. There is scattered colonic divertic ulosis without evidence of mandy diverticulitis. Appendix: The appendix is normal. Free air: There is no evidence of free air. Free fluid: There is no evidence of free fluid. Vasculature: The aorta is normal in caliber and contour. The inferior vena cava is grossly unremarkab le. There are mild atherosclerotic calcifications along the abdominal aorta. Lymphadenopathy: No pathologic lymphadenopathy is identified. Bladder: The bladder is relatively well distended and smooth in contour. Reproductive: The uterus is surgically absent. Bones: No acute osseous abnormalities are identified. There are mild degenerative changes along the v isualized thoracolumbar spine and pelvis. Soft tissues: No acute soft tissue abnormalities are identified. There is a tiny fat-containing ventr al umbilical hernia. IMPRESSION: 1. No evidence of acute intra-abdominal or intrapelvic pathology. Overall, no signific ant interval change when compared to the prior study. 2. Colonic diverticulosis without evidence of mandy diverticulitis. 3. Fatty infiltration of the liver. 4. Cholelithiasis. 5. Stable left renal cyst. 6. Status post hysterectomy. 7. Tiny fat-containing ventral umbilical hernia. Electronically signed by: Arlene Clay DO 08/09/2022 6:19 AM CDT Due to temporary technical issues with the PACS/Fluency reporting system, reports are being signed by the in house radiologists without review as a courtesy to insure prompt reporting. The interpreting radiologist is fully responsible for the content of the report.
[2022-08-10 18:49] VITALS: TEMP 98
[2022-08-10 19:00] VITALS: BP 146/71; O2SAT 98
== END 2022-08-09 09:50 | disposition home or self-care (01) ==
LOC: ER 01:05
DX: U07.1 COVID-19 (principal); E87.6 Hypokalemia; E83.51 Hypocalcemia; K57.32 Diverticulitis of large intestine without perforation or abscess without bleeding; R10.84 Generalized abdominal pain; I10 Essential (primary) hypertension; Z79.82 Long term (current) use of aspirin
CPT/HCPCS: 85025; 36415; 83690; 80053; 74177; 96375; 96374; 99284; 87811; Q9967; J3010; J0610; J7030; J2405; J0696; J0744; 81003; 81015

== ENCOUNTER 2022-08-16 18:13 | Emergency (ER) | payer OTHER ==
--- OUTSIDE RECORDS SUMMARY | 2022-08-16 18:16 | XMS REPORT | Continuity of Care Document ---
:1955 Author Organization [facility] t Address [address] [place] [address] Care Team Providers Name Role Phone Asked, [...] DA Active U 2019-11 [facility] [place] [facility] 00:[place] [facility] [place] U 2019-11 [facility]01 [place] 00:00: [address] Social History Social Habit Start Date Stop Date Quantity Comments Source History of Current smoker [facility] Tobacco use and 2020-09-19 2020-09-19 Former smokeless [facility] exposure 00:[facility] tobacco user Hospital Sex Assigned At [birth year] [facility] 00:00:00 [facility]:00 Hospital Smoking Status Start Date Stop Date Source Tobacco smoking consumption [facility] unknown Ex-smoker 2020-09-19 00:00:00 2020[facility]ations Ordered Filled Start Stop Current Ordering Indication Dosage Frequency Signature Comments Components Source Medication Medication Date Date Medication? Clinician (SIG) Name Name No known 2019-11 No No known [facility] medications [facility] [facility] No known 2019-11 No No known [facility] medications 0-[address] 19[facility]32[facility] Immunizations Ordered Immunization Filled Immunization Date Status Commen ts Source Name Name PFIZER COVID-19 MRNA 2021-02-13 Completed [facility] VACC[facility]ATION 00:00:00 Hospital PFIZER COVID-19 MRNA 2021-02-13 Completed [facility] 00:00:00 Hospital PFIZER COVID-19 MRNA 2021-01-23 Completed [facility] VACCINATION 00:00:00 Hospital PFIZER COVID-19 MRNA 2021-01-23 Completed [facility]ACC[facility] 00:00:00 Hospital Procedures This patient has no known procedures. Plan of Care Planned Activity Planned Date Details Comments Source Future Scheduled 2022-08-11 65+ [facility]OCOCCAL [facility] Test 03:26:56 VACCINE (1 - PCV) [code = 65+ PNEUMOCOCCAL VACCINE (1 - PCV)] Future Scheduled 2022-08-11 COVID-19 VACCINE (3 - [facility] Test 03:26:56 Booster for Pfizer series) [code = COVID-19 VACCINE (3 - Booster for Pfizer series)] Future Scheduled 2022-08-11 INFLUENZA VACCINE [facility] Test 03:26:56 [code = INFLUENZA VACCINE] Future Scheduled 2022-08-11 HEPATITIS B VACCINES [facility] Test 03:26:56 (1 of 3 - 3-dose series) [code = HEPATITIS B VACCINES (1 of 3 - 3-dose series)] Future Scheduled 2022-08-11 BREAST CANCER [facility] Test 03:26:56 SCREENING [code = BREAST CANCER SCREENING] Future Scheduled 2022-08-11 COLONOSCOPY SCREENING [facility] Test 03:26:56 [code = COLONOSCOPY SCREENING] Future Scheduled 2022-08-11 SHINGLES VACCINES (1 [facility] Test 03:26:56 of 2) [code = SHINGLES VACCINES (1 of 2)] Future Scheduled 2022-07-26 SHINGLES VACCINES (1 [facility] Test 16:07:25 of 2) [code = SHINGLES VACCINES (1 of 2)] Future Scheduled 2022-07-26 65+ PNEUMOCOCCAL [facility] Test 16:07:25 VACCINE (1 - PCV) [code = 65+ PNEUMOCOCCAL VACCINE (1 - PCV)] Future Scheduled 2022-07-26 COVID-19 VACCINE (3 - [facility] Test 16:07:25 Booster for Pfizer series) [code = COVID-19 VACCINE (3 - Booster for Pfizer series)] Future Scheduled 2022-07-26 INFLUENZA VACCINE [facility] Test 16:07:25 [code = INFLUENZA VACCINE] Future Scheduled 2022-07-26 HEPATITIS B VACCINES [facility] Test 16:07:25 (1 of 3 - 3-dose series) [code = HEPATITIS B VACCINES (1 of 3 - 3-dose series)] Future Scheduled 2022-07-26 BREAST CANCER [facility] Test 16:07:25 SCREENING [code = BREAST CANCER SCREENING] Future Scheduled 2022-07-26 COLONOSCOPY SCREENING [facility] Test 16:07:25 [code = COLONOSCOPY SCREENING] Future Scheduled 2022-07-26 BREAST CANCER [facility] Test 13:05:09 SCREENING [code = BREAST CANCER SCREENING] Future Scheduled 2022-07-26 COLONOSCOPY SCREENING [facility] Test 13:05:09 [code = COLONOSCOPY SCREENING] Future Scheduled 2022-07-26 SHINGLES VACCINES (1 [facility] Test 13:05:09 of 2) [code = SHINGLES VACCINES (1 of 2)] Future Scheduled 2022-07-26 65+ PNEUMOCOCCAL [facility] Test 13:05:09 VACCINE (1 - PCV) [code = 65+ PNEUMOCOCCAL VACCINE (1 - PCV)] Future Scheduled 2022-07-26 INFLUENZA VACCINE [facility] Test 13:05:09 [code = INFLUENZA VACCINE] Future Scheduled 2022-07-26 HEPATITIS B VACCINES [facility] Test 13:05:09 (1 of 3 - 3-dose series) [code = HEPATITIS B VACCINES (1 of 3 - 3-dose series)] Future Scheduled 2022-07-26 COVID-19 VACCINE (#1) [facility] Test 13:05:09 [code = COVID-19 VACCINE (#1)] Future Scheduled 2022-07-26 Hepatitis C screening [facility] Test 13:05:09 (procedure) [code = 332017151] Future Scheduled 2022-07-26 COLONOSCOPY SCREENING [facility] Test 13:05:09 [code = COLONOSCOPY SCREENING] Future Scheduled 2022-07-26 SHINGLES VACCINES (1 [facility] Test 13:05:09 of 2) [code = SHINGLES VACCINES (1 of 2)] Future Scheduled 2022-07-26 65+ [facility]AL [facility] Test 13:05:09 VACCINE (1 - PCV) [code = 65+ PNEUMOCOCCAL VACCINE (1 - PCV)] Future Scheduled 2022-07-26 INFLUENZA VACCINE [facility] Test 13:05:09 [code = INFLUENZA VACCINE] Future Scheduled 2022-07-26 HEPATITIS B VACCINES [facility] Test 13:05:09 (1 of 3 - 3-dose series) [code = HEPATITIS B VACCINES (1 of 3 - 3-dose series)] Future Scheduled 2022-07-26 COVID-19 VACCINE (#1) [facility] Test 13:05:09 [code = COVID-19 VACCINE (#1)] Future Scheduled 2022-07-26 Hepatitis C screening [facility] Test 13:05:09 (procedure) [code = 514999337] Future Scheduled 2022-07-26 BREAST CANCER [facility] Test 13:05:09 SCREENING [code = BREAST CANCER SCREENING] Encounters Start End Encounter Admission Attending Care Care Encounter Source Date/Time Date/Time Type Type Clinicians Facility Department ID 2022-01-16 Outpatient [facility] [id number] Common 09:09:05 [facility] 2020-10-01 [place] [facility] [place] [place] [id number] [facility] 14:00:00 Jamie 92 [facility] 2022-01-28 2022-01-28 [place] [place] [facility] NUC [id number] [facility] 09:56:00 09:56:00 Jamie 02 [facility] 2021-02-13 2021-02-13 Outpatient [facility] [id number] 369 [place] 00:00:00 00:00:00 EMILY 756 [facility] 2021-01-23 2021-01-23 Outpatient [facility] [id number] [place] 00:00:00 00:00:[address] 2020-09-19 2020-09-19 Emergency ROSS, DARREL [facility] [id number] [place] 00:00:00 00:00:[address] Results Test Description Test Time Test Comments Results Result Slime morin Comments - NM MYOCRD SPECT 2022-01-28 R/S MULT 14:52:00 [facility] 1955 Sex: F Patient Name: MARIA LUISA MCCLAIN Unit No: [id number] EXAMS: CPT CODE: [id number] NM MYOCRD SPECT R/S MULT [id number] Exercise treadmill nuclear stress test Date: 01/28/2022 [...] Technologist: Aspen Chow (N) Trscr Dt/Tm: 01/28/2022 (852) by[facility] Printed Date/Time: 01/28/2022 (7961) Name: MARIA LUISA MCCLAIN NICHOLS [facility] Phys: Jamie Dominguez MD [address] : 1955 Age: 66 Sex: [place] [id number] Loc: P.NUC Exam Date: 01/28/2022 Status: REG [...] AVG 11.04~~~~~~~~~~ ~~~~~~~ ~~~~~~~~~~~~~~~ ~~~~~~~ ~~~~~~~~~~~~~~~ ~~~~~~[facility] Cholest maxine Education (NCEP ) Guidelines:~~~~ ~~~~~~~ ~~~~~~~~~~~~~~~ ~~~~~~~ ~~~~~~~~~~~~~~~ ~~~~~~~ ~~~~~ HDL Cholesterol<4 0mg/dL: HDL Cholesterol (Major risk factor for CHD)>60mg/dL: H DL Cholesterol (Ne gative risk factor for CHD)40-59mg/dL: Borderline Risk LDL Cholesterol<1 00mg/dL : Desirable LDL -C [id number] 0-159mg /dL: Borderline High Risk LDL-C [id number] 0-189mg /dL: High risk LDL-C concentration H DL-LDL Cholesterol is affected by a n umber of factors such as smoking, age an d sex.~~~~~~~~~~~ ~~~~~~~ ~~~~~~~~~~~~~~~ ~~~~~~~ ~~~~~~~~~~~~~~~ ~~~~~ CBC W/AUTO [id number] 06:07:00 Test Item Value Reference Range Interpretation [...] 0.01 x10 3/uL 0.0-0.20 N COAGULATION TIME [id number] 15:16:00 Test Item Value Reference Range Interpretation Comments COAGULATION TIME ACTIVATED (test 483 SECONDS 74-137 H code = ACT) BASIC METABOLIC [id number] 13:55:00 Test Item Value Reference Range Interpretation [...] code 9.5 mg/dL 8.8-10.2 N = CA) [id number] 13:55:00 Test Item Value Reference Range Interpretation Comments MAGNESIUM (test code = MAG) 2.2 mg/dL 1.4-2.6 N PROTHROMBIN [id number] 13:44:00 Test Item Value Reference Range Interpretation [...] 2.5-3.5recurren t systemic emboli sm. THROMBOPLASTIN TIME [id number] 13:44:00 Test Item Value Reference Range Interpretation Comments THROMBOPLASTIN TIME 33.7 SECONDS 23.8-34.8 N INTERPRE TATIVE PARTIAL (test code = DATA: erapeutic PTT) range: Unfractionated heparin:55 - 80 seconds Argatroban:1.5 to 3 times the basel ine PTT CBC W/AUTO [id number] 13:35:00 Test Item Value Reference Range Interpretation [...]
[2022-08-16 19:34] LABS: Absolute Lymphocytes (CBC) 2.1 K/uL (0.7-4.9); Hematocrit 37.1 % (36.0-45.0); Lymphocytes % 48.1 % (15.3-44.8); MCV 85.7 fL (80-100); MPV 7.6 fL (7.6-11.3); RBC Red Blood Cell Count 4.33 M/uL (3.86-4.86)
[2022-08-16 19:49] LABS: Albumin 3.6 g/dL (3.4-5.0); Bilirubin Total 0.3 mg/dL (0.2-1.0); Potassium 3.9 mmol/L (3.5-5.1); Protein, Total 7.1 g/dL (6.4-8.2)
--- NOTE | 2022-08-16 19:50 | RAD REPORT ---
EXAM DESCRIPTION: CTAbdomen Pelvis W Contrast - 08/16/2022 7:40 pm CLINICAL HISTORY: Abdominal pain. pain, bleeding COMPARISON: Abdomen Pelvis W Contrast dated 08/09/2022; Abdomen Pelvis W Contrast dated 1; Abdomen Pelvis W Contrast dated 10/05/2017; Abdomen Pelvis W Contrast dated 10/28/2016 TECHNIQUE: Biphasic CT imaging of the abdomen and pelvis was performed with 100 ml non-ionic IV cont rast. All CT scans are performed using dose optimization technique as appropriate and may include automated exposure control or mA/KV adjustment according to patient size. FINDINGS: The lung bases are clear. The liver, spleen, pancreas, adrenal glands and kidneys are within normal limits. 26 mm parapelvic le ft renal cyst. No bowel obstruction, free air, free fluid or abscess. Sigmoid diverticulosis coli without diverticul itis. The appendix is normal. No evidence of significant lymphadenopathy. Small fat containing umbil ical hernia. No suspicious bony findings. IMPRESSION: No acute intra-abdominal or pelvic finding. Sigmoid diverticulosis is present without diverticulitis.
--- NOTE | 2022-08-16 20:05 | EDPHYS ---
Physician Documentation [facility] Name: Diane Kitchen Age: 66 yrs Sex: Female : 1955 Arrival Date: 08/16/2022 Time: 18:16 Bed 14 Private MD: Fahad Garcia E ED Physician Luis Muse HPI: 08/16 19:14 This 66 yrs old Female presents to ER via Ambulatory with complaints of Rectal kb Bleeding. 19:14 The patient presents to the emergency department with bleeding from the rectum/anus. kb Onset: The symptoms/episode began/occurred today. Context: the patient has no known special context relating to the rectal area complaint(s). Modifying factors: The symptoms are alleviated by nothing, The symptoms are aggravated by bowel movement. Associate signs and symptoms: Pertinent positives: abdominal pain in the left upper quadrant and left lower quadrant, diarrhea, lower GI bleeding. The patient has not experienced similar symptoms in the past. The patient has not recently seen a physician. Pt reports she was diagnosed with diverticulitis last week, put on antibiotics, then started having diarrhea. States she has had diarrhea all week and today there was blood in it. . Historical: - Allergies: 18:21 No Known Drug Allergies; hb - PMHx: 18:21 Diverticulitis; Hypertension; Myocardial infarction; hb - PSHx: 18:21 cardiac stents; hb - Immunization history:: Client reports receiving the 2nd dose of the Covid vaccine. - Social history:: Smoking status: Patient denies any tobacco usage or history of. ROS: 19:14 Constitutional: Negative for fever, chills, and weight loss. kb 19:14 Abdomen/GI: Positive for abdominal pain, diarrhea, rectal bleeding. 19:14 All other systems are negative. Exam: 19:14 Constitutional: This is a well developed, well nourished patient who is awake, alert, kb and in no acute distress. Head/Face: Normocephalic, atraumatic. ENT: Moist Mucous membranes Cardiovascular: Regular rate and rhythm with a normal S1 and S2. No gallops, murmurs, or rubs. No pulse deficits. Respiratory: Respirations even and unlabored. No increased work of breathing. Talking in full sentences Skin: Warm, dry with normal turgor. Normal color. MS/ Extremity: Pulses equal, no cyanosis. Neurovascular intact. Full, normal range of motion. Neuro: Awake and alert, GCS 15, oriented to person, place, time, and situation. Moves all extremities. Normal gait. Psych: Awake, alert, with orientation to person, place and time. Behavior, mood, and affect are within normal limits. 19:14 Abdomen/GI: Inspection: abdomen appears normal, Bowel sounds: normal, in all quadrants, Palpation: soft, in all quadrants, mild abdominal tenderness, in the left upper quadrant and left lower quadrant. 20:05 Abdomen/GI: Rectal exam: rectal tone normal, Stool: normal, brown, guaiac negative, kb hemorrhoid(s), external. Vital Signs: 18:18 BP 158 / 82; Pulse 71; Resp 16; Temp 97.2; Pulse Ox 97% on R/A; Weight 63.05 kg; Height hb 4 ft. 11 in. (149.86 cm); Pain 0/10; 20:00 BP 142 / 75; Pulse 72; Resp 18; Temp 97.4; Pulse Ox 100% on R/A; Pain 0/10; ke1 18:18 Body Mass Index 28.07 (63.05 kg, 149.86 cm) hb MDM: 18:31 Patient medically screened. kb 19:14 Data reviewed: vital signs, nurses notes. Data interpreted: Pulse oximetry: on room air kb is 97 %. Interpretation: normal. 20:05 Counseling: I had a detailed discussion with the patient and/or guardian regarding: the kb historical points, exam findings, and any diagnostic results supporting the discharge/admit diagnosis, lab results, radiology results, the need for outpatient follow up, a family practitioner, a business teacher, to return to the emergency department if symptoms worsen or persist or if there are any questions or concerns that arise at home. 08/16 18:31 Order name: CBC with Diff; Complete Time: 07:09 kb 08/16 18:31 Order name: CMP; Complete Time: 19:50 kb 08/16 18:31 Order name: Lipase; Complete Time: 19:50 kb 08/16 18:31 Order name: CT Abd/Pelvis - IV Contrast Only; Complete Time: 19:51 kb 08/16 18:31 Order name: IV Saline Lock; Complete Time: 19:21 kb 08/16 19:39 Order name: Manual Differential; Complete Time: 07:09 EDMS 08/16 18:31 Order name: Labs collected and sent; Complete Time: 19:54 kb Administered Medications: No medications were administered Disposition: 08/17 07:03 Co-signature as Attending Physician, Luis Muse MD. rn Disposition Summary: 08/16/22 20:04 Discharge Ordered Location: Home kb Condition: Stable kb Diagnosis - Diarrhea, unspecified kb Followup: kb - With: Emergency Department - When: As needed - Reason: Worsening of condition Followup: kb - With: Private Physician - When: 2 - 3 days - Reason: Recheck today's complaints, Continuance of care, Re-evaluation by your physician Discharge Instructions: - Discharge Summary Sheet kb - Food Choices to Help Relieve Diarrhea, Adult kb - Diarrhea, Adult, [id number] kb Forms: - Medication Reconciliation Form kb - Thank You Letter kb - Antibiotic Education kb - Prescription Opioid Use kb Prescriptions: - Protonix 40 mg Oral Tablet - take 1 tablet by ORAL route once daily; 30 tablet; Refills: 0, Product kb Selection Permitted Signatures: Dispatcher [employer] [facility] Madeline Cueto, FOUNDRY ENGINEER-C FOUNDRY ENGINEER-Ckb Luis Muse MD MD rn Baxter, Heather, RN RN Mg Boudreaux RN RN ke1
--- NOTE | 2022-08-16 20:05 | ER ---
Nurse's Notes [facility] Name: Diane Kitchen Age: 66 yrs Sex: Female : 1955 Arrival Date: 08/16/2022 Time: 18:16 Bed 14 Private MD: Fahad Garcia E Diagnosis: Diarrhea, unspecified Presentation: 08/16 18:18 Chief complaint: On Cipro and Flagyl for diverticulitis, reports dark red rectal hb bleeding that started last night. Coronavirus screen: At this time, the client does not indicate any symptoms associated with coronavirus-19. Ebola Screen: No symptoms or risks identified at this time. Risk Assessment: Do you want to hurt yourself or someone else? Patient reports no desire to harm self or others. Onset of symptoms was August 15, 2022. 18:18 Method Of Arrival: Ambulatory hb 18:18 Acuity: JYOTI 3 hb 19:00 Initial Sepsis Screen: Does the patient meet any 2 criteria? No. Patient's initial ke sepsis screen is negative. Does the patient have a suspected source of infection? No. Patient's initial sepsis screen is negative. Triage Assessment: 19:00 General: Appears in no apparent distress. General: Appears Behavior is appropriate for ke1 age. Pain: Denies pain. Historical: - Allergies: 18:21 No Known Drug Allergies; hb - PMHx: 18:21 Diverticulitis; Hypertension; Myocardial infarction; hb - PSHx: 18:21 cardiac stents; hb - Immunization history:: Client reports receiving the 2nd dose of the Covid vaccine. - Social history:: Smoking status: Patient denies any tobacco usage or history of. Screenin:00 Abuse screen: Denies threats or abuse. Nutritional screening: No deficits noted. ke1 Tuberculosis screening: No symptoms or risk factors identified. Fall Risk Assessment: 20:33 Reassessment: Patient states feeling better. Patient states symptoms have improved. ke1 Vital Signs: 18:18 BP 158 / 82; Pulse 71; Resp 16; Temp 97.2; Pulse Ox 97% on R/A; Weight 63.05 kg; Height hb 4 ft. 11 in. (149.86 cm); Pain 0/10; 20:00 BP 142 / 75; Pulse 72; Resp 18; Temp 97.4; Pulse Ox 100% on R/A; Pain 0/10; ke1 18:18 Body Mass Index 28.07 (63.05 kg, 149.86 cm) ED Course: 18:16 Patient arrived in ED. mr 18:16 Fahad Garcia MD is Private Physician. mr 18:21 Triage completed. hb 18:21 Arm band placed on. hb 18:23 Madeline Cueto F[facility]-C [facility] kb 18:23 Luis Muse MD is Attending Physician. kb 19:00 Bed in low position. Call light in reach. ke1 19:08 Mg Boudreaux, RN is Primary Nurse. ke1 19:20 Inserted saline lock: 20 gauge in left antecubital area, using aseptic technique. ke1 19:42 CT Abd/Pelvis - IV Contrast Only In Process Unspecified. EDMS 20:33 No provider procedures requiring assistance completed. ke1 20:33 IV discontinued. ke1 Administered Medications: No medications were administered Medication: 20:33 VIS not applicable for this client. ke1 Outcome: 20:04 Discharge ordered by . kb 20:33 Discharged to home ambulatory. ke1 20:33 Condition: good 20:33 Discharge instructions given to patient. 20:34 Patient left the ED. ke1 Signatures: Dispatcher [employer] EDMS Madeline Cueto FNP-C FNP-Ckb Rivera, Mary mr GeorgeJennifer, RN RN Mg Boudreaux, JEFF RN ke1
[2022-08-16 20:55] LABS: Blood Morphology Comment NOT SEEN (NOT SEEN); Platelet Estimate ADEQ
[2022-08-18 07:16] VITALS: BP 142/75; TEMP 97.4; O2SAT 100
== END 2022-08-16 20:34 | disposition home or self-care (01) ==
LOC: ER 18:13
DX: R19.7 Diarrhea, unspecified (principal); R10.9 Unspecified abdominal pain; I10 Essential (primary) hypertension
CPT/HCPCS: 85025; 36415; 82565; 83690; 80053; 74177; 99283; Q9967

== ENCOUNTER 2024-10-19 12:48 | Emergency (ER) | payer OTHER ==
[2024-10-19] MEDS ORDERED: ALBUTEROL 2.5 MG/3 ML NEB SOL ONE (13:44)
[2024-10-19] MEDS ORDERED: IPRATROPIUM BROM 0.5MG/2.5ML ONE (13:45)
--- NOTE | 2024-10-19 13:53 | RAD REPORT ---
Procedure: Chest Pa And Lat (2 Views) HISTORY: Cough COMPARISON: 2022 FINDINGS: The lungs appear clear of acute infiltrate. No significant pleural effusion noted. The heart appears borderline enlarged. IMPRESSION: No acute abnormality is displayed.
[2024-10-19 14:08] LABS: SARS-CoV-2 Antigen CONTROL BLUE LINE VIS/BG OK; SARS-CoV-2 Antigen Rapid Res Negative (Negative)
[2024-10-19] MEDS ORDERED: predniSONE 20 MG TAB ONE (14:13)
--- NOTE | 2024-10-19 14:35 | ER ---
Nurse's Notes [facility] Name: Diane Kitchen Age: 68 yrs Sex: Female : 1955 Arrival Date: 10/19/2024 Time: 12:48 Bed 16 Private MD: Diagnosis: Influenza due to identified novel influenza A virus Presentation: 10/19 13:21 Chief complaint: Cough, SOB, body aches, headache, and chills x 3 days. Coronavirus hb screen: Client presents with at least one sign or symptom that may indicate coronavirus-19. Standard/surgical mask placed on the client. Provider contacted for isolation considerations. Ebola Screen: No symptoms or risks identified at this time. Initial Sepsis Screen: Does the patient meet any 2 criteria? No. Patient's initial sepsis screen is negative. Does the patient have a suspected source of infection? No. Patient's initial sepsis screen is negative. Risk Assessment: Do you want to hurt yourself or someone else? Patient reports no desire to harm self or others. Onset of symptoms was October 16, 2024. 13:21 Method Of Arrival: Ambulatory hb 13:21 Acuity: JYOTI 3 hb Triage Assessment: 13:20 General: Appears in no apparent distress. uncomfortable, Behavior is calm, cooperative. rs5 Respiratory: Respiratory: Onset: The symptoms/episode began/occurred gradually. Historical: - Allergies: 13:04 No Known Allergies; hb - PMHx: 13:04 Myocardial infarction; Diverticulitis; Hypertension; Asthma; hb - PSHx: 13:04 cardiac stents; colon resection (Diverticulitis); hb - Immunization history:: Adult Immunizations up to date. - Infectious Disease History:: Denies. - Social history:: Smoking status: Patient denies any tobacco usage or history of. Screenin:[address] [facility] ED Fall Risk Assessment (Adult) History of falling in the last 3 months, rs5 including since admission No falls in past 3 months (0 pts) Confusion or Disorientation No (0 pts) Intoxicated or Sedated No (0 pts) Impaired Gait Yes (1 pt) Mobility Assist Device Used Yes (1 pt) Altered Elimination No (0 pt) Score/Fall Risk Level 0 - 2 = Low Risk Oriented to surroundings, Maintained a safe environment. Abuse screen: Denies threats or abuse. Nutritional screening: No deficits noted. Tuberculosis screening: No symptoms or risk factors identified. Assessment: 13:22 General: Appears in no apparent distress. uncomfortable, Behavior is calm, cooperative. rs5 Pain: Denies pain. Neuro: Level of Consciousness is awake, alert, obeys commands, Oriented to person, place, time, situation. Cardiovascular: Patient's skin is warm and dry. Rhythm is regular. Respiratory: Airway is patent Respiratory effort is even, unlabored, Respiratory pattern is regular, symmetrical. Respiratory: Breath sounds are clear. GI: Abdomen is round non-distended, Abd is soft and non tender X 4 quads. : No signs and/or symptoms were reported regarding the genitourinary system. EENT: Reports nasal congestion nasal discharge. Derm: Skin is intact, Skin is pink, warm \T\ dry. Musculoskeletal: Range of motion: intact in all extremities. 14:45 Reassessment: Patient and/or family updated on plan of care and expected duration. Pain rs5 level reassessed. Patient is alert, oriented x 3, equal unlabored respirations, skin warm/dry/pink. 15:34 Reassessment: Patient and/or family updated on plan of care and expected duration. Pain rs5 level reassessed. Patient is alert, oriented x 3, equal unlabored respirations, skin warm/dry/pink. Vital Signs: 13:21 BP 146 / 78; Pulse 105; Resp 20; Temp 98.9(TE); Pulse Ox 90% on R/A; Weight 64.86 kg; hb Height 4 ft. 11 in. ; Pain 10/10; 14:45 BP 143 / 74; Pulse 80; Resp 17; Temp 98.5; Pulse Ox 96% on R/A; rs5 15:34 BP 137 / 79; Pulse 74; Resp 17; Pulse Ox 97% on R/A; rs5 13:21 Body Mass Index 28.88 (64.86 kg, 149.86 cm) hb 13:21 Pain Scale: Adult hb ED Course: 12:51 Patient arrived in ED. mg5 12:55 Madeline Cueto FNP-C [facility]. kb 12:55 Bennett Torres MD is Attending Physician. kb 13:22 Triage completed. hb 13:22 Arm band placed on. hb 13:30 Patient has correct armband on for positive identification. Placed in gown. Bed in low rs5 position. Call light in reach. Side rails up X2. 13:30 COVID swab sent to lab. Flu and/or RSV swab sent to lab. Strep swab sent to lab. hb 13:30 No provider procedures requiring assistance completed. rs5 13:31 Patient moved to radiology via wheelchair. hb 13:31 RSV Sent. hb 13:31 SARS-COV-2 Antigen Rapid Sent. hb 13:31 Strep Sent. hb 13:31 Flu Sent. hb 13:38 Jey Hernandez, RN is Primary Nurse. rs5 13:48 Chest Pa And Lat (2 Views) XRAY In Process Unspecified. EDMS 15:50 Patient did not have IV access during this emergency room visit. rs5 Administered Medications: 13:30 Drug: Albuterol Inhalation 2.5 mg Inhalation once Route: Inhalation; rs5 14:00 Follow up: Response: No adverse reaction rs5 13:30 Drug: Ipratropium Inhalation Aerosol 0.5 mg Inhalation once Route: Inhalation; rs5 14:00 Follow up: Response: No adverse reaction rs5 14:00 Drug: predniSONE PO 40 mg PO once Route: PO; rs5 14:47 Follow up: Response: No adverse reaction rs5 Medication: 14:46 VIS not applicable for this client. rs5 Outcome: 14:34 Discharge ordered by . 15:50 Patient left the ED. rs5 15:50 Discharged to home ambulatory, rs5 15:50 Condition: stable 15:50 Discharge instructions given to patient, family, Instructed on discharge instructions, follow up and referral plans. Demonstrated understanding of instructions, follow-up care, Signatures: Dispatcher [employer] [facility]DAK Madeline Cueto, MALLORY-Silver SORTER OPERATOR-Jennifer Tam RN RN Jey Hernandez, RN RN rs5 Elinor Vaca mg5 Corrections: (The following items were deleted from the chart) 19:30 15:07 Patient left the ED. rs5 rs5
--- NOTE | 2024-10-19 14:35 | EDPHYS ---
Physician Documentation [facility] Name: Diane Kitchen Age: 68 yrs Sex: Female : 1955 Arrival Date: 10/19/2024 Time: 12:48 Bed 16 Private MD: ED Physician Bennett Torres HPI: 10/19 12:57 This 68 yrs old Female presents to ER via Unassigned with complaints of kb Shortness Of Breath, Flu Symptoms. 13:11 Pt is a 68 year old female who presents for cough, congestion, shortness of breath, kb chills, bodyaches and headache that started 3 days ago. States symptoms have gotten worse since onset. No relief with home/OTC medications. No aggravating or alleviating factors. . Historical: - Allergies: 13:04 No Known Allergies; hb - PMHx: 13:04 Myocardial infarction; Diverticulitis; Hypertension; Asthma; hb - PSHx: 13:04 cardiac stents; colon resection (Diverticulitis); hb - Immunization history:: Adult Immunizations up to date. - Infectious Disease History:: Denies. - Social history:: Smoking status: Patient denies any tobacco usage or history of. ROS: 12:57 Constitutional: As per HPI kb Exam: 13:11 Constitutional: This is a well developed, well nourished patient who is awake, alert, kb and in no acute distress. Head/Face: Normocephalic, atraumatic. ENT: Moist Mucous membranes Cardiovascular: Regular rate Respiratory: Respirations even and unlabored. No increased work of breathing. Talking in full sentences Abdomen/GI: Soft, non-tender. No distention Skin: Warm, dry with normal turgor. Normal color. MS/ Extremity: Pulses equal, no cyanosis. Neurovascular intact. Full, normal range of motion. Neuro: Awake and alert, GCS 15, oriented to person, place, time, and situation. 13:11 ENT: External ear(s): are unremarkable, Ear canal(s): are normal, TM's: are normal, Posterior pharynx: is normal, 13:11 Respiratory: the patient does not display signs of respiratory distress, Respirations: normal, Breath sounds: are clear throughout, Vital Signs: 13:21 BP 146 / 78; Pulse 105; Resp 20; Temp 98.9(TE); Pulse Ox 90% on R/A; Weight 64.86 kg; hb Height 4 ft. 11 in. ; Pain 10/10; 14:45 BP 143 / 74; Pulse 80; Resp 17; Temp 98.5; Pulse Ox 96% on R/A; rs5 15:34 BP 137 / 79; Pulse 74; Resp 17; Pulse Ox 97% on R/A; rs5 13:21 Body Mass Index 28.88 (64.86 kg, 149.86 cm) hb 13:21 Pain Scale: Adult hb MDM: 12:55 Medical Screening Exam initiated kb 12:57 Data reviewed: vital signs, nurses notes. kb 14:33 Differential diagnosis: flu, covid, rsv, uri, pneumonia. I considered the following kb discharge prescriptions or medication management in the emergency department I discussed and recommended Over The Counter medications, Antibiotics: At this time antibiotics are not recommended, Antivirals: At this time, antivirals are not recommended. Historians other than the Patient: Spouse/Significant Other: spouse. Counseling: I had a detailed discussion with the patient and/or guardian regarding the historical points, exam findings, and any diagnostic results supporting the discharge/admit diagnosis, lab results, radiology results, the need for outpatient follow up, a family practitioner, to return to the emergency department if symptoms worsen or persist or if there are any questions or concerns that arise at home. ED course: o2 sat increased to 96% after treatment. Pt has albuterol inhaler to use at home. . 10/19 13:03 Order name: Strep hb 10/19 13:03 Order name: Flu; Complete Time: 14:20 hb 10/19 13:03 Order name: SARS-COV-2 Antigen Rapid; Complete Time: 14:09 hb 10/19 13:03 Order name: RSV; Complete Time: 14:20 hb 10/19 14:11 Order name: Throat Culture EDMS 10/19 13:03 Order name: Chest Pa And Lat (2 Views) XRAY; Complete Time: 13:53 hb Administered Medications: 13:30 Drug: Albuterol Inhalation 2.5 mg Inhalation once Route: Inhalation; rs5 14:00 Follow up: Response: No adverse reaction rs5 13:30 Drug: Ipratropium Inhalation Aerosol 0.5 mg Inhalation once Route: Inhalation; rs5 14:00 Follow up: Response: No adverse reaction rs5 14:00 Drug: predniSONE PO 40 mg PO once Route: PO; rs5 14:47 Follow up: Response: No adverse reaction rs5 Disposition Summary: 10/19/24 14:34 Discharge Ordered Notes: Location: Home kb Condition: Stable kb Diagnosis - Influenza due to identified novel influenza A virus kb Followup: kb - With: Emergency Department - When: As needed - Reason: Worsening of condition Followup: kb - With: Private Physician - When: 2 - 3 days - Reason: Recheck today's complaints, Continuance of care, Re-evaluation by your physician Discharge Instructions: - Discharge Summary Sheet kb - Influenza, Adult, [id number] kb Forms: - Medication Reconciliation Form kb - Antibiotic Education kb - Prescription Opioid Use kb - Patient Portal Instructions kb - Leadership Thank You Letter kb Signatures: Dispatcher [employer] EDMS Madeline Cueto, SENIOR PROPERTY ACCOUNTANT-C SENIOR PROPERTY ACCOUNTANT-Jennifer Tam RN RN Jey Hernandez RN RN rs5 Corrections: (The following items were deleted from the chart) 13:03 13:03 Chest Pa And Lat (2 Views)+RAD.RAD.BRZ ordered. EDMS EDMS 13:03 13:03 Influenza Screen (A \T\ B)+BA.LAB.BRZ ordered. EDMS EDMS 13:03 13:03 Group A Streptococcus Rapid Sc+BA.LAB.BRZ ordered. EDMS EDMS 13:03 13:03 SARS-COV-2 Antigen Rapid+I.LAB.BRZ ordered. EDMS EDMS 13:03 13:03 Respiratory Syncytial Virus Ag+BA.LAB.BRZ ordered. EDMS EDMS
[2024-10-19 17:11] VITALS: BP 143/74; TEMP 98.5; O2SAT 96
== END 2024-10-19 15:07 | disposition home or self-care (01) ==
LOC: ER 12:48
DX: J10.1 Influenza due to other identified influenza virus with other respiratory manifestations (principal); Z11.52 Encounter for screening for COVID-19; Z95.818 Presence of other cardiac implants and grafts
CPT/HCPCS: 87070; 36415; 87081; 87807; 87804 ×2; 71046; 99284; 87811; J7512; J7613; J7644

== ENCOUNTER 2025-07-16 17:37 | Emergency (ER) | payer OTHER ==
--- NOTE | 2025-07-16 18:37 | RAD REPORT ---
Procedure: Chest Single View HISTORY: Chest pain COMPARISON: 2023 FINDINGS: The lungs appear clear of acute infiltrate. No significant pleural effusion noted. The heart is normal size. IMPRESSION: No acute abnormality is displayed.
[2025-07-16] MEDS ORDERED: IPRATROPIUM BROM 0.5MG/2.5ML ONE (18:38)
[2025-07-16] MEDS ORDERED: ALBUTEROL 2.5 MG/3 ML NEB SOL ONE (18:38)
[2025-07-16] MEDS ORDERED: METHYLPREDNISOLONE 125 MG INJ ONE (18:38)
[2025-07-16 19:04] LABS: Absolute Lymphocytes (CBC) 1.8 K/uL (0.7-4.9); Hematocrit 40.6 % (36.0-45.0); Hemoglobin 13.8 g/dL (12.0-15.0); MCH 30.4 pg (27.0-35.0); MCHC 33.9 g/dL (32.0-36.0); MCV 89.7 fL (80-100); MPV 8.4 fL (7.6-11.3); Nucleated RBC Absolute Count 0.0 (0-0); Nucleated Red Blood Cells % 0.1 % (0-0); RBC Red Blood Cell Count 4.53 M/uL (3.86-4.86); White Blood Count 4.90 thou/uL (4.3-10.9)
[2025-07-16 19:11] LABS: Anion Gap 7.9 mEq/L (5.0-15.0); BUN Blood Urea Nitrogen 14.0 mg/dL (7-18); Glucose Level 101.0 mg/dL (74-106); Influenza A Ag Negative; Influenza B Ag Negative; Magnesium 2.5 mg/dL (1.6-2.4); NT PRO-BNP 27.0 pg/mL (<125); Potassium 3.9 mEq/L (3.5-5.1); SARS-CoV-2 Antigen Rapid Res Negative (Negative); Troponin High Sensitivity 6.0 pg/mL (<58.9)
--- NOTE | 2025-07-16 19:21 | ER ---
Nurse's Notes [facility] Name: Diane Kitchen Age: 69 yrs Sex: Female : 1955 Arrival Date: 07/16/2025 Time: 17:37 Bed 5 Private MD: Diagnosis: Acute bronchitis, unspecified Presentation: 07/16 17:57 Chief complaint: Patient states: cough, congestion, chest tightness , was started on iw Augmentin. Coronavirus screen: Client presents with at least one sign or symptom that may indicate coronavirus-19. Ebola Screen: No symptoms or risks identified at this time. Initial Sepsis Screen: Does the patient meet any 2 criteria? No. Patient's initial sepsis screen is negative. Does the patient have a suspected source of infection? No. Patient's initial sepsis screen is negative. Risk Assessment: Do you want to hurt yourself or someone else? Patient reports no desire to harm self or others. 17:57 Acuity: JYOTI 3 iw 17:57 Method Of Arrival: Wheelchair iw 20:07 Onset of symptoms is unknown. cp4 Triage Assessment: 20:06 General: Appears in no apparent distress. uncomfortable, Behavior is calm, cooperative, cp4 appropriate for age. Pain: Complains of pain in chest Pain does not radiate. Pain currently is 6 out of 10 on a pain scale. Historical: - Allergies: 18:24 No Known Allergies; iw - PMHx: 17:58 Asthma; Diverticulitis; Hypertension; Myocardial infarction; iw - PSHx: 17:58 cardiac stents; colon resection (ic); iw - Immunization history:: Adult Immunizations up to date. - Infectious Disease History:: Denies. - Social history:: Smoking status: Patient denies any tobacco usage or history of. Screenin:04 [facility] ED Fall Risk Assessment (Adult) History of falling in the last 3 months, cp4 including since admission No falls in past 3 months (0 pts) Confusion or Disorientation No (0 pts) Intoxicated or Sedated No (0 pts) Impaired Gait No (0 pts) Mobility Assist Device Used No (0 pt) Altered Elimination No (0 pt) Score/Fall Risk Level 0 - 2 = Low Risk Oriented to surroundings, Maintained a safe environment, Assessed \T\ reinforced patient's understanding of fall precautions, Hourly rounding (assess needs \T\ fall precautionary measures) done. Abuse screen: Denies threats or abuse. Denies injuries from another. Nutritional screening: No deficits noted. Tuberculosis screening: No symptoms or risk factors identified. Never had TB. Assessment: 20:04 Pain: Complains of pain in chest Pain does not radiate. Pain began 2-3 days ago. cp4 Cardiovascular: Patient's skin is warm and dry. Vital Signs: 18:24 BP 149 / 63; Pulse 62; Resp 19; Pulse Ox 97% on R/A; iw 20:03 BP 127 / 56; Pulse 64; Resp 18; Pulse Ox 97% ; cp4 ED Course: 17:42 Patient arrived in ED. ts1 17:45 Madeline Cueto FNP-C is PSYCHIATRICP. kb 17:45 Luis Muse MD is Attending Physician. kb 17:58 Triage completed. iw 18:23 Initial lab(s) drawn, by me, sent to lab. Inserted saline lock: 20 gauge in left iw antecubital area, using aseptic technique. Blood collected. Flushed with 10 mL NS. Patient maintains SpO2 saturation greater than 95% on room air. 18:27 XRAY Chest (1 view) In Process Unspecified. EDMS 19:10 EKG done, by ED staff, reviewed by Madeline LINO. pm7 20:04 No provider procedures requiring assistance completed. intact, bleeding controlled, No cp4 redness/swelling at site. Pressure dressing applied. 20:04 Bed in low position. Call light in reach. Side rails up X2. Provided Education on: cp4 bronchitis. Client placed on continuous cardiac and pulse oximetry monitoring. NIBP monitoring applied. digestion operator on. Pulse ox on. NIBP on. 20:07 Arm band placed on right wrist. Patient placed in waiting room. cp4 Administered Medications: 18:45 Drug: MethylPrednisoLONE IVP 125 mg IVP once Route: IVP; Site: left antecubital; iw 20:07 Follow up: Response: No adverse reaction cp4 18:45 Drug: Albuterol Inhalation 2.5 mg Inhalation once Route: Inhalation; iw 18:45 Drug: Ipratropium Inhalation Aerosol 0.5 mg Inhalation once Route: Inhalation; iw Medication: 20:04 VIS not applicable for this client. cp4 Outcome: 19:21 Discharge ordered by . kb 20:04 Discharged to home ambulatory, cp4 20:04 Condition: stable 20:04 Discharge instructions given to patient, family, Instructed on discharge instructions, follow up and referral plans. Demonstrated understanding of instructions, follow-up care, 20:07 Patient left the ED. cp4 Signatures: Dispatcher [employer] EDMadeline Mina, MALLORY-C MALLORY-Whitney Arriaga RN RN Chelle Kelly PAS PAS ts1 Candida Grijalva cp4 Sarah Warner pm7
--- NOTE | 2025-07-16 19:21 | EDPHYS ---
Physician Documentation [facility] Name: Diane Kitchen Age: 69 yrs Sex: Female : 1955 Arrival Date: 07/16/2025 Time: 17:37 Bed 5 Private MD: ED Physician Luis Muse HPI: 07/16 20:30 This 69 yrs old Female presents to ER via Wheelchair with complaints of kb Non-Productive Cough, Chest Pain, Fever. 20:30 Pt is a 69 year old female who presents for cough, congestion, fever, chills, sore kb throat, wheezing and chest tightness that started one week ago. Was seen by PCP 2 days ago, diagnosed with a virus and given augmentin. States symptoms haven't improved since starting antibiotics so she came in for further evaluation. Historical: - Allergies: 18:24 No Known Allergies; iw - PMHx: 17:58 Asthma; Diverticulitis; Hypertension; Myocardial infarction; iw - PSHx: 17:58 cardiac stents; colon resection (ic); iw - Immunization history:: Adult Immunizations up to date. - Infectious Disease History:: Denies. - Social history:: Smoking status: Patient denies any tobacco usage or history of. ROS: 20:28 Constitutional: As per HPI kb Exam: 20:28 Constitutional: This is a well developed, well nourished patient who is awake, alert, kb and in no acute distress. Head/Face: Normocephalic, atraumatic. ENT: Moist Mucous membranes Cardiovascular: Regular rate Abdomen/GI: Soft, non-tender. No distention Skin: Warm, dry with normal turgor. Normal color. MS/ Extremity: Pulses equal, no cyanosis. Neurovascular intact. Full, normal range of motion. Neuro: Awake and alert, GCS 15, oriented to person, place, time, and situation. 20:28 Respiratory: the patient does not display signs of respiratory distress, Respirations: normal, Breath sounds: wheezing: expiratory that is mild, is heard in the left lower lobe and left posterior lower lobe, 20:50 ECG was reviewed by the Attending Physician. kb Vital Signs: 18:24 BP 149 / 63; Pulse 62; Resp 19; Pulse Ox 97% on R/A; iw 20:03 BP 127 / 56; Pulse 64; Resp 18; Pulse Ox 97% ; cp4 MDM: 17:45 Medical Screening Exam initiated kb 20:28 Differential diagnosis: flu, covid, uri, pneumonia, strep. Data reviewed: vital signs, kb nurses notes. 20:29 Consideration of Admission/Observation Escalation of care including kb admission/observation considered. admission considered but chest tightness is due to wheezing and cough, troponin wnl. Historians other than the Patient: Spouse/Significant Other: spouse. Counseling: I had a detailed discussion with the patient and/or guardian regarding the historical points, exam findings, and any diagnostic results supporting the discharge/admit diagnosis, lab results, radiology results, the need for outpatient follow up, a family practitioner, to return to the emergency department if symptoms worsen or persist or if there are any questions or concerns that arise at home. 07/16 17:58 Order name: Basic Metabolic Panel; Complete Time: 19:14 kb 07/16 17:58 Order name: CBC with Diff; Complete Time: 19:10 kb 07/16 17:58 Order name: Magnesium; Complete Time: 19:14 kb 07/16 17:58 Order name: NT PRO-BNP; Complete Time: 19:14 kb 07/16 17:58 Order name: Troponin HS; Complete Time: 19:14 kb 07/16 17:58 Order name: COVID-19 Ag + Flu A+B Ag; Complete Time: 19:14 kb 07/16 17:58 Order name: Group A Streptococcus Rapid; Complete Time: 19:14 kb 07/16 19:13 Order name: Throat Culture EDWI 07/16 17:58 Order name: XRAY Chest (1 view); Complete Time: 18:38 kb 07/16 17:58 Order name: Cardiac monitoring; Complete Time: 19:33 kb 07/16 17:58 Order name: EKG - Nurse/Tech; Complete Time: 18:41 kb 07/16 17:58 Order name: IV Saline Lock; Complete Time: 18:41 kb 07/16 17:58 Order name: Labs collected and sent; Complete Time: 18:41 kb 07/16 17:58 Order name: O2 Per Protocol; Complete Time: 18:41 kb 07/16 17:58 Order name: O2 Sat Monitoring; Complete Time: 18:41 kb EC:50 Rate is 57 beats/min. Rhythm is regular. QRS [place] is Normal. MO interval is normal at kb 138 msec. QRS interval is normal at 82 msec. QT interval is normal at 439 msec. Administered Medications: 18:45 Drug: MethylPrednisoLONE IVP 125 mg IVP once Route: IVP; Site: left antecubital; iw 20:07 Follow up: Response: No adverse reaction cp4 18:45 Drug: Albuterol Inhalation 2.5 mg Inhalation once Route: Inhalation; iw 18:45 Drug: Ipratropium Inhalation Aerosol 0.5 mg Inhalation once Route: Inhalation; iw Disposition Summary: 07/16/25 19:21 Discharge Ordered Notes: Location: Home kb Condition: Stable kb Diagnosis - Acute bronchitis, unspecified kb Followup: kb - With: Emergency Department - When: As needed - Reason: Worsening of condition Followup: kb - With: Private Physician - When: 2 - 3 days - Reason: Recheck today's complaints, Continuance of care, Re-evaluation by your physician Discharge Instructions: - Discharge Summary Sheet kb - Acute Bronchitis, Adult, [id number] kb Forms: - Medication Reconciliation Form kb - Antibiotic Education kb - Prescription Opioid Use kb - Patient Portal Instructions kb - Leadership Thank You Letter kb Addendum: 07/18/2025 07:04 Co-signature as Attending Physician, Luis Muse MD I reviewed the patient's care r n provided by the Advanced Practice Provider and agree with the diagnosis and treatment plan. Signatures: Dispatcher [employer] Madeline Lee, BRUSH FABRICATION SUPERVISOR-C BRUSH FABRICATION SUPERVISOR-Ckb Whitney Almeida RN RN iw Nieto, Roman, MD MD rn Potter, Christina cp4 Corrections: (The following items were deleted from the chart) 07/16 17:59 17:59 BASIC METABOLIC PANEL+C.LAB.BRZ ordered. EDMS EDMS 17:59 17:59 CBC+H.LAB.BRZ ordered. EDMS EDMS 17:59 17:59 MAGNESIUM+C.LAB.BRZ ordered. EDMS EDMS 17:59 17:59 PROBNP+C.LAB.BRZ ordered. EDMS EDMS 17:59 17:59 Troponin High Sensitivity+C.LAB.BRZ ordered. EDMS EDMS 17:59 17:59 COVID-19 Ag + Flu A+B Ag+I.LAB.BRZ ordered. EDMS EDMS 17:59 17:59 Group A Streptococcus Rapid Sc+I.LAB.BRZ ordered. EDMS EDMS 17:59 17:59 Chest Single View+RAD.RAD.BRZ ordered. EDMS EDMS
[2025-07-16 20:39] VITALS: O2SAT 97
[2025-07-16 20:41] VITALS: BP 127/56
== END 2025-07-16 20:07 | disposition home or self-care (01) ==
LOC: ER 17:37
DX: J20.9 Acute bronchitis, unspecified (principal); Z11.52 Encounter for screening for COVID-19; Z95.818 Presence of other cardiac implants and grafts
CPT/HCPCS: 93005; 87070; 85025; 80048; 36415; 83735; 84484; 83880; 71045; 96374; 99285; 87428; J7613; J7644; J2919